=== PATIENT | female | born 1935 | race Caucasian/White ===

== ENCOUNTER → 2016-03-31 | Outpatient (REF) | payer MEDICARE, OTHER ==
[2016-03-31 18:47] LABS: BASO % 0.7 % (0.0-1.0); EOS # 0.3 K/mm3 (0.0-0.50); EOS % 5.5 % (0.0-3.0); LARGE UNSTAINED CELL # 0.1 K/mm3 (0.0-0.4); LARGE UNSTAINED CELL % 1.9 % (0.0-4.0); LYMPH # 1.9 K/mm3 (1.5-4.5); LYMPH % 29.3 % (24.0-44.0); MEAN CORPUSCULAR HEMOGLOBIN 30.4 pg (27.0-33.0); MEAN CORPUSCULAR HGB CONC 34.2 g/dl (32.0-36.5); MEAN CORPUSCULAR VOLUME 88.8 fl (80.0-96.0); MONO # 0.5 K/mm3 (0.0-0.8); MONO % 7.4 % (0.0-5.0); NEUTROPHILS # 3.4 K/mm3 (1.8-7.7); NEUTROPHILS % 55.2 % (36.0-66.0); PLATELET COUNT, AUTOMATED 305 k/mm3 (150-450); RED CELL DISTRIBUTION WIDTH 12.7 % (11.5-14.5); WHITE BLOOD COUNT 6.1 K/mm3 (4.0-10.0)
[2016-03-31 19:04] LABS: ALBUMIN 3.8 GM/DL (3.2-5.2); ALBUMIN/GLOBULIN RATIO 1.09 (1.00-1.93); ALKALINE PHOSPHATASE 172 U/L (45-117); ALT/SGPT 17 U/L (12-78); ANION GAP 9 MEQ/L (8-16); AST/SGOT 14 U/L (15-37); BILIRUBIN,TOTAL 0.4 MG/DL (0.2-1.0); BLOOD UREA NITROGEN 17 MG/DL (7-18); CALCIUM LEVEL 9.3 MG/DL (8.8-10.2); CARBON DIOXIDE LEVEL 28 MEQ/L (21-32); CHLORIDE LEVEL 106 MEQ/L (98-107); CHOLESTEROL LEVEL 209 MG/DL (<200); CREATININE FOR GFR 0.84 MG/DL (0.55-1.02); GLOMERULAR FILTRATION RATE > 60.0 (>32); GLUCOSE, FASTING 91 MG/DL (83-110); POTASSIUM SERUM 4.2 MEQ/L (3.5-5.1); SODIUM LEVEL 143 MEQ/L (136-145); TOTAL PROTEIN 7.3 GM/DL (6.4-8.2); TRIGLYCERIDES LEVEL 160 MG/DL (<150)
== END ==
LOC: M SFHCPLAZ 16:53
PROVIDERS: ATTEND Nurse Practitioner Family
DX: Z00.00 Encounter for general adult medical examination without abnormal findings (principal); I10 Essential (primary) hypertension; E55.9 Vitamin D deficiency, unspecified

== ENCOUNTER → 2016-04-26 | Outpatient (CLI) | payer MEDICARE, OTHER ==
--- NOTE | 2016-04-26 16:50 | REPMRS ---
Patient History The patient states she has not had a clinical breast exam in over a year. Family history of colorectal cancer in mother at age 73, colorectal cancer in brother at age 68, and colorectal cancer in brother at age 70. Took hormonal contraceptives for 2 years. Digital Woman Screen Mammo: April 26, 2016 - Exam #: [id number] Bilateral CC and MLO view(s) were taken. Technologist: Aracelis Noel, Technologist Prior study comparison: June 04, 2014, digital woman screen mammo performed at [facility]. May 11, 2013, bilateral bilat screen digital mammo, performed at [facility] ([facility]). May 08, 2012, bilateral bilat screen digital mammo, performed at [facility] ([facility]). FINDINGS: The breast tissue is almost entirely fat. There has been no change in the appearance of the mammogram from the prior studies. There is no interval development of dominant mass, architectural distortion, or clustered microcalcification typical of malignancy. ASSESSMENT: BI-RADS/ACR category 1 mammogram. Negative. Recommendation Routine screening mammogram of both breasts in 1 year (for women over age 40). This mammogram was interpreted with the aid of an FDA-approved computer-aided dectection system. Electronically Signed By: Danny Crocker MD 04/26/16 1718
== END ==
LOC: M WHC 15:32
PROVIDERS: ATTEND Nurse Practitioner Family
DX: Z12.31 Encounter for screening mammogram for malignant neoplasm of breast (principal); E65 Localized adiposity; Z80.0 Family history of malignant neoplasm of digestive organs; Z92.0 Personal history of contraception

== ENCOUNTER → 2016-05-17 | Outpatient (REF) | payer MEDICARE, OTHER | LOC: M LAB REF 11:50 | PROVIDERS: ATTEND Physician Assistant | DX: R30.0 Dysuria (principal) ==

== ENCOUNTER 2016-10-09 20:44 | Emergency (ER) | payer MEDICARE, OTHER ==
[~2016-10-09] VITALS: Ht 160 cm; Wt 67.3 kg
[2016-10-09 20:44] VITALS: BP 185/89
[2016-10-09] MEDS ORDERED: LOSA100T36 PO (20:56)
[2016-10-09] MEDS ORDERED: CART180C3 PO (20:56)
[2016-10-09] MEDS ORDERED: BUPR200T PO (20:56)
[2016-10-09] MEDS ORDERED: HYDR25TA6 PO (20:56)
[2016-10-09] MEDS ORDERED: POTA20TA6 PO (20:56)
[2016-10-09] MEDS ORDERED: [UNRECOGNIZED DRUG - CODE] PO (20:56)
[2016-10-09] MEDS ORDERED: MAGN64TASA PO (20:56)
[2016-10-09] MEDS ORDERED: LIDOCAINE 2% W/EPIN INJ 20ML **PRES FREE INJ ONE (21:15)
--- NOTE | 2016-10-09 22:00 | REPUSA ---
CT of the head Clinical history: injury. Comparison: 02/19/2014. Protocol: Multiple axial CT images obtained with 5 mm slice thickness were obtained through the head without administration of contrast. Findings: The ventricles and sulci are symmetric but severely enlarged bilaterally. There is no evide nce of acute hemorrhage or infarct. There is no midline shift, mass effect, or extra-axial fluid bassam ection. The osseous structures are unremarkable. The visualized paranasal sinuses and mastoid air geo ls are clear. Impression: No acute hemorrhage or infarct. Ventriculomegaly is stable since the prior study of 2014.
[2016-10-09] MEDS ORDERED: POLYSPORIN TOPICAL OINTMENT 15GM As Ordered ONE (23:21)
== END 2016-10-09 23:31 | disposition home or self-care (01) ==
LOC: M ED 20:44
DX: S01.81XA Laceration without foreign body of other part of head, initial encounter (principal); I10 Essential (primary) hypertension; G91.9 Hydrocephalus, unspecified; W01.198A Fall on same level from slipping, tripping and stumbling with subsequent striking against other object, initial encounter; Y92.099 Unspecified place in other non-institutional residence as the place of occurrence of the external cause; Y93.89 Activity, other specified; Y99.9 Unspecified external cause status

== ENCOUNTER 2017-01-03 20:14 | Emergency (ER) | payer MEDICARE, OTHER ==
[~2017-01-03] VITALS: Ht 162.6 cm; Wt 65.5 kg
[~2017-01-03 20:14] MED LIST: BUPR200T PO; CART180C3 PO; HYDR25TA6 PO; LOSA100T36 PO; MAGN64TASA PO; POTA20TA6 PO; [UNRECOGNIZED DRUG - CODE] PO
[2017-01-03] MEDS ORDERED: MUCI600T37 PO (23:08)
[2017-01-03 23:15] VITALS: BP 158/89
--- NOTE | 2017-01-04 07:46 | REP ---
Clinical: Cough and shortness of breath. Technique: PA and lateral. Comparison: 03/16/2015. Findings: Chronic scoliosis. Mediastinum and cardiac silhouette are stable. Lung pastrana are clear without acute consolidation, effusion, or pneumothorax. Skeletal structures demonstrate scoliosis and age-related degenerative changes. Evidence of prior cholecystectomy. Impression: Chronic stable changes. No acute cardiopulmonary process. Signed by Nikolas Means MD 01/04/2017 07:38 A
== END 2017-01-03 23:16 | disposition home or self-care (01) ==
LOC: M ED 20:14
DX: J20.8 Acute bronchitis due to other specified organisms (principal)

== ENCOUNTER 2017-01-17 06:37 | Day surgery (SDC) | payer MEDICARE, OTHER ==
[~2017-01-17] VITALS: Ht 160 cm; Wt 64.9 kg
[~2017-01-17 06:37] MED LIST changes: +MUCI600T37 PO
[2017-01-17] MEDS ORDERED: LIDOCAINE 1% SDV 5 ML VIAL As Ordered ONE (06:39)
[2017-01-17] MEDS ORDERED: POVIDONE-IODINE 5% OPHTH PREP SOL 30ML As Ordered ONE (06:39)
[2017-01-17] MEDS ORDERED: MOXIFLOXACIN IN BSS 0.25MG/0.25ML INTRACAMERAL INJ (OR EYE ONLY)(J2280) As Ordered ONE (06:39)
[2017-01-17] MEDS ORDERED: TRIAMCINOLONE PRES FR 40 MG/ML 1ML(TRIESENCE)(OR EYE ONLY)(J3300 PER 1MG) As Ordered ONE (06:39)
[2017-01-17] MEDS ORDERED: HEALON DUET (HEALON 10MG/ML 0.55ML & HEALON ENDOCOAT 30MG/ML 0.85ML) As Ordered ONE (06:39)
[2017-01-17] MEDS ORDERED: SLF 3 ML SYR IV PRN (06:45)
[2017-01-17] MEDS ORDERED: OFLOXACIN 0.3 % (OCUFLOX) OPTH SOL 5ML OD ONE (07:00)
[2017-01-17] MEDS ORDERED: TROPICAMIDE 1% OPHTH SOLN 2ML OD ONE (07:00)
[2017-01-17] MEDS ORDERED: LIDOCAINE 3.5 % 1ML OPHTH TOPICAL GEL OU ONE (07:00)
[2017-01-17] MEDS ORDERED: CYCLOPENTOLATE 2% OPHTH SOLN 2ML BTL OD ONE (07:00)
[2017-01-17] MEDS ORDERED: PHENYLEPHRINE 2.5% OPHTH SOL 2ML OD ONE (07:00)
[2017-01-17] MEDS ORDERED: BSS with VANC/TOB/EPI for EYE CASES IR ONE (07:00)
[2017-01-17] MEDS ORDERED: LIDOCAINE 2% W/EPIN INJ 20ML **PRES FREE As Ordered ONE (08:18)
[2017-01-17] MEDS ORDERED: fentaNYL 100 MCG/2 ML INJECTION (J3010) As Ordered ONE (08:21)
[2017-01-17] MEDS ORDERED: MIDAZOLAM INJ 2 MG/2 ML VIAL (J2250) As Ordered ONE (08:21)
[2017-01-17 09:20] VITALS: BP 180/92
[2017-01-17] MEDS ORDERED: SLF 3 ML SYR IV SCH (14:00)
== END 2017-01-17 09:21 | disposition home or self-care (01) ==
LOC: M SDC 06:37
PROVIDERS: ATTEND Ophthalmology
DX: H25.11 Age-related nuclear cataract, right eye (principal); I10 Essential (primary) hypertension; E78.5 Hyperlipidemia, unspecified; M19.90 Unspecified osteoarthritis, unspecified site; F32.9 Major depressive disorder, single episode, unspecified; K57.90 Diverticulosis of intestine, part unspecified, without perforation or abscess without bleeding; M85.80 Other specified disorders of bone density and structure, unspecified site; E88.81 Metabolic syndrome and other insulin resistance; Q03.0 Malformations of aqueduct of Sylvius; E55.9 Vitamin D deficiency, unspecified; J30.9 Allergic rhinitis, unspecified; Z79.899 Other long term (current) drug therapy; Z88.8 Allergy status to other drugs, medicaments and biological substances; Z88.2 Allergy status to sulfonamides; Z88.6 Allergy status to analgesic agent
CPT/HCPCS: 66984; J2250; J2280; J3010; J3300; V2632

== ENCOUNTER → 2017-02-03 | Outpatient (CLI) | payer MEDICARE, OTHER ==
--- NOTE | 2017-02-03 16:43 | REP ---
LEFT SHOULDER: Three views of the left shoulder are performed. There is a nondisplaced fracture of the distal end of the clavicle. I see no other evidence of acute fracture or dislocation. There is mild narrowing and spurring at the acromioclavicular joint. There also appears to be mild narrowing at the glenohumeral joint. IMPRESSION: Nondisplaced fracture distal end of left clavicle. Signed by Peter Whipple MD 02/03/2017 08:43 P
== END ==
LOC: M WUC 15:52
PROVIDERS: ATTEND Physician Assistant
DX: S40.012A Contusion of left shoulder, initial encounter (principal); X58.XXXA Exposure to other specified factors, initial encounter; Y92.89 Other specified places as the place of occurrence of the external cause; Y93.89 Activity, other specified; Y99.8 Other external cause status

== ENCOUNTER → 2017-03-25 | Outpatient (REF) | payer MEDICARE, OTHER ==
[2017-03-25 13:59] LABS: HEMOGLOBIN 12.4 g/dl (12.0-16.0); MEAN CORPUSCULAR HEMOGLOBIN 29.4 pg (27.0-33.0); MEAN CORPUSCULAR HGB CONC 32.6 g/dl (32.0-36.5); PLATELET COUNT, AUTOMATED 377 10^3/uL (150-450); RED BLOOD COUNT 4.22 10^6/uL (4.00-5.40); RED CELL DISTRIBUTION WIDTH 13.8 % (11.5-14.5); WHITE BLOOD COUNT 8.3 10^3/uL (4.0-10.0)
[2017-03-25 14:37] LABS: TOTAL 25(OH) VITAMIN D 37.7 NG/ML (30.0-100.0)
[2017-03-25 14:39] LABS: ALBUMIN 4.1 GM/DL (3.2-5.2); ALBUMIN/GLOBULIN RATIO 1.46 (1.00-1.93); ALKALINE PHOSPHATASE 134 U/L (45-117); ALT/SGPT 14 U/L (12-78); ANION GAP 8 MEQ/L (8-16); AST/SGOT 17 U/L (7-37); BILIRUBIN,TOTAL 0.5 MG/DL (0.2-1.0); BLOOD UREA NITROGEN 20 MG/DL (7-18); CALCIUM LEVEL 9.2 MG/DL (8.8-10.2); CARBON DIOXIDE LEVEL 27 MEQ/L (21-32); CHLORIDE LEVEL 109 MEQ/L (98-107); CHOLESTEROL LEVEL 226 MG/DL (<200); CHOLESTEROL RISK RATIO 3.138 (<5); CREATININE FOR GFR 0.97 MG/DL (0.55-1.30); FREE T4 1.16 NG/DL (0.76-1.46); GLOMERULAR FILTRATION RATE 58.7 (>32); GLUCOSE, FASTING 96 MG/DL (70-100); HDL CHOLESTEROL 72 MG/DL (>40); LDL CHOLESTEROL 118.4 MG/DL (<100); NON-HDL-C 154 MG/DL; POTASSIUM SERUM 4.7 MEQ/L (3.5-5.1); SODIUM LEVEL 144 MEQ/L (136-145); TOTAL PROTEIN 6.9 GM/DL (6.4-8.2); TRIGLYCERIDES LEVEL 178 MG/DL (<150)
== END ==
LOC: M SFHCPLAZ 11:09
DX: I10 Essential (primary) hypertension (principal); E55.9 Vitamin D deficiency, unspecified; E78.2 Mixed hyperlipidemia; F32.9 Major depressive disorder, single episode, unspecified
CPT/HCPCS: 84443

== ENCOUNTER 2017-04-13 08:55 | Day surgery (SDC) | payer MEDICARE, OTHER ==
[~2017-04-13 08:55] MED LIST changes: +ACETAMINOPHEN 325 MG TAB PO; -BUPR200T PO; -CART180C3 PO; -HYDR25TA6 PO; -LOSA100T36 PO; -MAGN64TASA PO; +MIDAZOLAM INJ 2 MG/2 ML VIAL (J2250) As Ordered; -MUCI600T37 PO; +PHENYLEPHRINE HCL 10 % OPHTH. SOL 5ML OS; -POTA20TA6 PO; +PROPARACAINE 0.5% OPHTH SOL 15ML OS; -[UNRECOGNIZED DRUG - CODE] PO; +fentaNYL 100 MCG/2 ML INJECTION (J3010) As Ordered
[2017-04-13] MEDS ORDERED: TRIMETHOBENZAMIDE 300 MG CAP PO (09:15)
[2017-04-13] MEDS ORDERED: AcetaZOLAMIDE 500 MG ER CAP PO (09:15)
[2017-04-13] MEDS ORDERED: KETOROLAC 0.5% OPHTH SOLN OS (09:15)
[2017-04-13] MEDS: PHENYLEPHRINE 2.5% OPHTH SOL 2ML OS (10:05)
[2017-04-13] MEDS: CYCLOPENTOLATE 2% OPHTH SOLN 2ML BTL OS (10:05)
[2017-04-13] MEDS: LIDOCAINE 3.5 % 1ML OPHTH TOPICAL GEL OU (10:06)
[2017-04-13] MEDS: OFLOXACIN 0.3 % (OCUFLOX) OPTH SOL 5ML OS (10:06)
[2017-04-13] MEDS: TROPICAMIDE 1% OPHTH SOLN 2ML OS (10:06)
[2017-04-13] MEDS: LIDOCAINE 1% SDV 5 ML VIAL As Ordered (11:21)
[2017-04-13] MEDS: MOXIFLOXACIN IN BSS 0.25MG/0.25ML INTRACAMERAL INJ (OR EYE ONLY)(J2280) As Ordered (11:21)
[2017-04-13] MEDS: TRIAMCINOLONE PRES FR 40 MG/ML 1ML(TRIESENCE)(OR EYE ONLY)(J3300 PER 1MG) As Ordered (11:21)
[2017-04-13] MEDS: BSS with VANC/TOB/EPI for EYE CASES IR (11:21)
[2017-04-13] MEDS: POVIDONE-IODINE 5% OPHTH PREP SOL 30ML As Ordered (11:21)
[2017-04-13] MEDS: HEALON DUET (HEALON 10MG/ML 0.55ML & HEALON ENDOCOAT 30MG/ML 0.85ML) As Ordered ×2 (11:21→11:31)
[2017-04-13] MEDS: ACETYLCHOLINE OPHTH SOLN 1% 2ML (MIOCHOL-E) As Ordered (11:35)
== END 2017-04-13 12:14 | disposition home or self-care (01) ==
LOC: M SDC 08:55
DX: H26.9 Unspecified cataract (principal); I10 Essential (primary) hypertension; M15.0 Primary generalized (osteo)arthritis; F32.9 Major depressive disorder, single episode, unspecified; E78.2 Mixed hyperlipidemia; E74.9 Disorder of carbohydrate metabolism, unspecified; E55.9 Vitamin D deficiency, unspecified; Q03.0 Malformations of aqueduct of Sylvius; Z88.2 Allergy status to sulfonamides; Z88.6 Allergy status to analgesic agent; Z88.8 Allergy status to other drugs, medicaments and biological substances; Z79.899 Other long term (current) drug therapy; Z90.710 Acquired absence of both cervix and uterus
CPT/HCPCS: 66984

== ENCOUNTER 2017-05-03 09:16 | Emergency (ER) | payer MEDICARE, OTHER ==
[2017-05-03] MEDS: NAPROXEN 250 MG TAB PO (09:50)
== END 2017-05-03 11:16 | disposition home or self-care (01) ==
LOC: M ED 09:16
DX: S93.401A Sprain of unspecified ligament of right ankle, initial encounter (principal); X50.0XXA Overexertion from strenuous movement or load, initial encounter; Y92.018 Other place in single-family (private) house as the place of occurrence of the external cause; I10 Essential (primary) hypertension; M19.90 Unspecified osteoarthritis, unspecified site; Z79.899 Other long term (current) drug therapy
CPT/HCPCS: 73610

== ENCOUNTER 2018-06-25 11:56 | Inpatient (IN) | payer MEDICARE, OTHER ==
[~2018-06-25] VITALS: Ht 162.6 cm; Wt 64.3 kg
[~2018-06-25 11:56] MED LIST changes: -ACETAMINOPHEN 325 MG TAB PO; +BUPR200T PO; +CART180C3 PO; +ECOT325T5 PO; +HYDR25TA6 PO; +LOSA100T50 PO; +MAGN64TASA PO; -MIDAZOLAM INJ 2 MG/2 ML VIAL (J2250) As Ordered; +MUCI600T37 PO; +OSEL75CA2 PO; -PHENYLEPHRINE HCL 10 % OPHTH. SOL 5ML OS; +POTA20TA6 PO; -PROPARACAINE 0.5% OPHTH SOL 15ML OS; +VITA200016 PO; +[UNRECOGNIZED DRUG - CODE] PO; -fentaNYL 100 MCG/2 ML INJECTION (J3010) As Ordered
[2018-06-25] MEDS ORDERED: ACETAMINOPHEN 325 MG TAB PO ONE (12:30)
[2018-06-25] MEDS ORDERED: LATA0.0015 OU (12:59)
[2018-06-25] MEDS ORDERED: LORA-674 PO (12:59)
[2018-06-25] MEDS ORDERED: NAPR-832 PO (12:59)
[2018-06-25 13:02] LABS: BASO # 0.1 10^3/uL (0.0-0.2); BASO % 0.6 % (0.0-1.0); EOS # 0.1 10^3/uL (0.0-0.50); EOS % 0.8 % (0.0-3.0); HEMATOCRIT 39.5 % (36.0-47.0); HEMOGLOBIN 13.1 g/dl (12.0-15.5); LYMPH # 0.9 10^3/uL (1.5-4.5); LYMPH % 11.5 % (24.0-44.0); MEAN CORPUSCULAR HEMOGLOBIN 30.3 pg (27.0-33.0); MEAN CORPUSCULAR HGB CONC 33.2 g/dl (32.0-36.5); MEAN CORPUSCULAR VOLUME 91.2 fl (80.0-96.0); MONO # 0.5 10^3/uL (0.0-0.8); MONO % 6.4 % (0.0-5.0); NEUTROPHILS # 6.3 10^3/uL (1.8-7.7); NEUTROPHILS % 80.4 % (36.0-66.0); PLATELET COUNT, AUTOMATED 252 10^3/uL (150-450); RED BLOOD COUNT 4.33 10^6/uL (4.00-5.40); WHITE BLOOD COUNT 7.8 10^3/uL (4.0-10.0)
[2018-06-25 13:31] LABS: ALBUMIN 3.9 GM/DL (3.2-5.2); ALT/SGPT 21 U/L (12-78); BILIRUBIN,DIRECT 0.1 MG/DL (0.0-0.2); BILIRUBIN,TOTAL 0.5 MG/DL (0.2-1.0); BLOOD UREA NITROGEN 23 MG/DL (7-18); CARBON DIOXIDE LEVEL 26 MEQ/L (21-32); CHLORIDE LEVEL 109 MEQ/L (98-107); CREATININE FOR GFR 1.06 MG/DL (0.55-1.30); GLOMERULAR FILTRATION RATE 52.8 (>32); GLUCOSE, FASTING 121 MG/DL (70-100); POTASSIUM SERUM 5.6 MEQ/L (3.5-5.1); SODIUM LEVEL 142 MEQ/L (136-145); TOTAL PROTEIN 6.6 GM/DL (6.4-8.2)
[2018-06-25] MEDS ORDERED: PATIROMER SORBITEX CALCIUM 8.4 GM POWDER PACKET (VELTASSA) PO ONE (13:45)
--- NOTE | 2018-06-25 13:48 | REP ---
CT CHEST WITHOUT CONTRAST: HISTORY: Lower back and left lower rib pain after a fall. FINDINGS: Preliminary christmas bell ringer images demonstrate a moderate thoracic and lumbar scoliosis. Cardiac enlargement is observed. No pleural or pericardial effusion is seen. No hilar or mediastinal mass is observed. The thoracic aorta is tortuous. No pulmonary contusion is seen. There is minimal bibasilar fibrosis. No acute pulmonary parenchymal abnormality is seen. There are acute fractures of the left posterior 10th, 11th, and 12th ribs. The 11th rib is fractured in two places. The 11th and 12th posterior rib fractures are somewhat displaced. No thoracic spine fracture is seen. No sternal or other skeletal fracture is appreciated. Vertebral body heights are preserved. IMPRESSION: Displaced fractures of the left posterior 11th and 12th ribs. Nondisplaced left 10th rib fracture posterolaterally. Small quantity of adjacent pleural thickening. Scoliosis. Otherwise no acute disease. Cardiomegaly. Electronically Signed by Chalino Crocker MD 06/25/2018 02:45 P
--- NOTE | 2018-06-25 13:50 | REP ---
CT LUMBAR SPINE: HISTORY: Low back and left rib pain after a fall. FINDINGS: There is a significant levoconvex lumbar scoliotic curve. Lumbar vertebral body heights are preserved. There is no evidence of lumbar spine element fracture or collapse. There is osteoarthritic facet disease at multiple levels, most pronounced at L4-5 and L5-S1. Degenerative disc changes are noted. These are most pronounced at L2-3. IMPRESSION: Scoliosis and degenerative spondylosis changes. No traumatic abnormality. Electronically Signed by Chalino Crocker MD 06/25/2018 02:45 P
[2018-06-25] MEDS ORDERED: ONDANSETRON 4MG/2ML VIAL (J2405) IV ONE (14:00)
[2018-06-25] MEDS ORDERED: MORPHINE 4 MG/ML 1ML VIAL/SYRINGE (J2270) IV PRN (14:00)
[2018-06-25] MEDS ORDERED: ASPI1TAB22 PO (14:08)
[2018-06-25] MEDS ORDERED: HYDR25TAB PO (14:08)
[2018-06-25 14:11] LABS: CPK CREATINE PHOSPHOKINASE 109 U/L (26-192); FREE T4 1.22 NG/DL (0.76-1.46); MB/CK RELATIVE INDEX 1.93 (< OR =4); TROPONIN I < 0.02 NG/ML (< 0.10)
[2018-06-25 14:52] LABS: INR 0.96; PROTHROMBIN TIME 12.9 SECONDS (12.1-14.4)
[2018-06-25 17:45] VITALS: BP 139/81
[2018-06-25] MEDS ORDERED: LIDOCAINE 5% (LIDODERM) PATCH TD ONE (19:00)
[2018-06-25 20:00] VITALS: BP 131/80
[2018-06-25] MEDS: buPROPion (WELLBUTRIN SR) 100 MG SR TAB PO SCH (20:06)
[2018-06-25] MEDS: APIXABAN 2.5 MG TAB (ELIQUIS) PO SCH (20:07)
[2018-06-25] MEDS: MAGNESIUM CHLORIDE 64 MG TABCR (SLO MAG) PO SCH (20:07)
[2018-06-25] MEDS: FLUTICASONE PROP 0.05% NASAL SPRAY 16 GM (FLONASE) NARES SCH (20:07)
[2018-06-25] MEDS: LATANOPROST 0.005% OPHTH SOLN 2.5 ML OU SCH (20:07)
[2018-06-25] MEDS: ACETAMINOPHEN TAB 650MG DOSE (2X325MG) PO PRN (20:08)
[2018-06-26] VITALS: BP 116/77
[2018-06-26] MEDS: ACETAMINOPHEN TAB 650MG DOSE (2X325MG) PO PRN ×3 (01:27→15:39)
--- NOTE | 2018-06-26 01:30 | HPE ---
DATE OF ADMISSION: 06/25/2018 CHIEF COMPLAINT: Marcella was feeling woozy, lightheaded. Fell struck left rib area seen in the emergency room (ER) because of complaint of rib pain after a fall and noted to have three rib fractures to 10, 11 and 12 posteriorly on the left side corresponding to the area of pain, however, she was also noted to be in atrial fibrillation with rate varying between 60-126 with minimal activity her rate goes very fast so the new diagnosis for her with symptomatic atrial fibrillation new onset it was deemed with that injury related to the symptoms it was deemed appropriate for to be admitted. She has no prior history of atrial fibrillation and no history of coronary artery disease. CURRENT MEDICATIONS: Include: - Flonase allergy relief one spray each nostril daily - Slow-Mag 2 tablets twice a day - vitamin D 2000 units daily - diltiazem 180 mg daily - Wellbutrin SR 200 mg twice a day - hydrochlorothiazide 25 mg daily - Cozaar 100 mg twice a day - K-Dur 20 mEq 2 tablets twice a day - Anaprox 550 twice a day as needed pain PAST MEDICAL HISTORY: The past medical history is remarkable for hypertension. She had echocardiogram in [address] Lee that showed left ventricular hypertrophy, mild diastolic dysfunction, minimal dysfunction of atrial and mitral valves LA dimension at that time was 3.9 cm, hyperlipidemia, diverticulosis osteopenia on a DEXA scan last done in April 2010. Started bisphosphonate in 2004. 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 Vera at the [facility] neurosurgical department. SURGICAL HISTORY: Partial hysterectomy. It is not clear what that means, cholecystectomy in the 80s, colonoscopies as noted with tubulovillous adenoma removed in 2010. FAMILY HISTORY: Remarkable for father dying of old age, nonspecific cause. Mother had colon cancer, hypertension. Brother had colon cancer. SOCIAL HISTORY: The patient was never a smoker. She has been offered human immunodeficiency virus (HIV) and hepatitis C screening and declined both. Rents an apartment lives alone, since 1968. of myocardial infarction and left her with six children. REVIEW OF SYSTEMS: Until the onset of today symptoms she was not having chest pain or lightheadedness and had no previous episodes of fainting or near fainting. No nausea, vomiting or constipation, diarrhea or dysuria. Chronic joint pain that come and go. Over the last day or so she has had episodes of lightheadedness and then today's episode of near syncope resulting in injury. PHYSICAL EXAMINATION: VITAL SIGNS: Blood pressure 120/79, pulse was as noted ranged from 80-126 on the monitor with minimal activity, room air saturation is 94%-95%. GENERAL: She is alert, pleasant, cooperative and in no apparent distress until she is asked to move and then she reports pain and points the left rib area, low back, left low rib areas on the left torso. HEENT: Normocephalic. Pupils equal. Full eye movement. Palate normal elevation, oropharynx unremarkable. No neck masses noted. No carotid bruits are heard. Thyroid is not enlarged. LUNGS: Equal expansion. No wheezing, rales or rhonchi. She is tender in the left posterolateral ribs. No crepitations are noted. No bruising is seen. HEART: Irregular rhythm with no discernible murmur. ABDOMEN: Nontender. No mass, guarding or rebound. No bruits noted. EXTREMITIES: Show no significant edema. She has had previous surgeries on her toes. She has a rash on her low back. SKIN: She has rash on her low back which seems somewhat plaque-like almost like psoriasis. Will need to be monitored and consider subsequent outpatient biopsy or dermatology consultation. She has no previous history of psoriasis although this rash looks psoriasiform. NEUROLOGICAL: She is alert pleasant. Memory is mildly impaired. She moves all extremities without difficulty although her gait was not tested. LABORATORY DATA: Hemoglobin 13.1, white count 7800. Differentials 80.4% neutrophils, 11.5% lymphocytes, platelet count 252,000. Chemistries: BUN 23, creatinine 1.06. Glucose on admission was 121 and this was not fasting. Alkaline phosphatase was 129. Liver enzymes are otherwise normal. Troponin was negative. Thyroid-stimulating hormone (TSH) 2.7 and free T4 1.22. Her potassium was 5.6 on admission and then rechecked at 5.2. Initial dose of a potassium binding resin was given but the dose was not actually administered and the request to administer this drug was discontinued when her followup potassium returned at only 5.2. IMAGING STUDIES: Include a CT of the lumbar spine which shows scoliosis and spondylitic changes, facet disease at multiple levels, most pronounced and disc disease at multiple levels. A CT of the chest showed fractures of the posterior left 10th, 11th and 12th ribs. The 11th and 12th ribs are somewhat displaced. No thoracic fractures are noted. There is no pleural effusion. There is minimal basilar fibrillation. No mediastinal mass or pericardial effusion is noted. IMPRESSION: 1. New onset atrial fibrillation with rate likely with episode of presyncope and injury to the left ribs secondary to a near fainting event. 2. Rib fractures as described. 3. Longstanding hypertension. 4. History of aqueductal stenosis and hydrocephalus, but is not thought to be a shunt candidate per neurosurgical consult at [facility]. PLAN: The plan will be to admit. Improve rate control. Since she is already taking Cardizem, we will increase her Cardizem dose to 240. Will give her 60 mg by mouth doses this evening and she will start a 240 mg daily dose tomorrow. She is close to the threshold for low-dose for administration of Eliquis. Her weight is 63.64 kg and she is over 80 but her creatinine is good enough and her weight is just high enough to justify standard dosing but one could easily be convinced that perhaps this frail woman should have the lower 2.5 mg twice a day dose particularly if she is going to continue to exhibit risk of falling. Her rate hopefully will be improved and will eliminate this particular hazard from falls as with a lower rate she should have better filling pressures and better cardiac output and avoidance of tachycardia will be important. Echo will be requested. Consider cardiology consult if her pressure and heart rate are not reasonably controlled readily. The potassium administration that she had been doing as outpatient will be discontinued because she presents hyperkalemic. We will continue magnesium supplement for now but will check magnesium level tomorrow.
[2018-06-26 04:00] VITALS: BP 118/68
[2018-06-26 04:44] LABS: HEMATOCRIT 35.2 % (36.0-47.0); HEMOGLOBIN 11.7 g/dl (12.0-15.5); MEAN CORPUSCULAR HEMOGLOBIN 30.5 pg (27.0-33.0); MEAN CORPUSCULAR HGB CONC 33.2 g/dl (32.0-36.5); MEAN CORPUSCULAR VOLUME 91.7 fl (80.0-96.0); PLATELET COUNT, AUTOMATED 218 10^3/uL (150-450); RED BLOOD COUNT 3.84 10^6/uL (4.00-5.40); WHITE BLOOD COUNT 7.5 10^3/uL (4.0-10.0)
[2018-06-26 05:09] LABS: ALBUMIN 3.1 GM/DL (3.2-5.2); BILIRUBIN,TOTAL 0.6 MG/DL (0.2-1.0); CALCIUM LEVEL 8.2 MG/DL (8.8-10.2); CREATININE FOR GFR 1.11 MG/DL (0.55-1.30); GLOMERULAR FILTRATION RATE 50.1 (>32); POTASSIUM SERUM 3.9 MEQ/L (3.5-5.1)
--- NOTE | 2018-06-26 05:49 | ECGEPIP ---
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
[2018-06-26] MEDS ORDERED: **NOTE PATIENT COMMENT** MISC XX ONE (07:00)
[2018-06-26 08:00] VITALS: BP 115/73
--- NOTE | 2018-06-26 08:11 | REP ---
Chest x-ray: Two views. History: Follow-up. Rib fracture. Comparison study: January 03, 2017. CT chest June 25, 2018 showed left posterolateral 10th through 12th rib fractures. Findings: There is linear fibrosis in the left mid and lower lung zone. The lungs are well inflated and clear. There is no evidence of pneumothorax or hydrothorax. Heart is enlarged. The thoracic aorta is quite tortuous and somewhat ectatic unchanged. There is a moderate dextroconvex thoracic scoliosis. There is an old healed rib fracture on the right anteriorly. No acute rib fracture is seen radiographically. . There are surgical clips in the upper abdomen. Impression: Cardiomegaly. Scoliosis. Otherwise no acute disease. Electronically Signed by Chalino Crocker MD 06/26/2018 08:03 A
[2018-06-26] MEDS: MAGNESIUM CHLORIDE 64 MG TABCR (SLO MAG) PO SCH ×2 (08:51→21:22)
[2018-06-26] MEDS: FLUTICASONE PROP 0.05% NASAL SPRAY 16 GM (FLONASE) NARES SCH ×2 (08:51→20:45)
[2018-06-26] MEDS: APIXABAN 2.5 MG TAB (ELIQUIS) PO SCH ×2 (08:52→20:44)
[2018-06-26] MEDS: hydroCHLOROthiazide 25 MG TAB PO SCH (08:53)
[2018-06-26] MEDS: buPROPion (WELLBUTRIN SR) 100 MG SR TAB PO SCH ×2 (08:53→21:21)
[2018-06-26] MEDS: VITAMIN D 1,000 INTERNATIONAL UNITS TABLET PO SCH (08:53)
--- NOTE | 2018-06-26 08:56 | IPNPDOC ---
Subjective Date Seen The patient was seen on 06/26/18. Subjective Chief Complaint/HPI fall, afib with RVR, rib fractures. Events since last encounter C/o mid back pain and rib pain. c/o nausea and abdominal fullness with nausea. admits to constipation. Denies flatus. Constitutional: Denies: Chills, Fever, Night Sweats Pulmonary: Denies: Dyspnea, Cough Cardiovascular: Denies: Chest Pain, Palpitations, Orthopnea, Paroxysmal Noc. Dyspnea, Lt Headedness Gastrointestinal: Reports: Constipation Genitourinary: Denies: Dysuria, Frequency, Incontinence, Retention Musculoskeletal: Reports: Other Symptoms (left sided CP, right upper/mid back pain) Psych: Reports: Mood Normal Objective Physical Examination General Exam: Positive: Alert, No Acute Distress Neck Exam: Positive: Supple; Negative: JVD, thyromegaly Chest Exam: Positive: Clear to auscultation, Normal air movement Heart Exam: Positive: Rate Normal, Regular Rhythm, Normal S1, Normal S2; Negative: Murmurs, Rubs Telemetry: Positive: No significant arrhythmia Abdomen Exam: Positive: BS Hypoactive, Soft, Tenderness (mildly); Negative: Hepatospenomegaly A-FIB/CHADSVASC A-FIB History Current/History of A-Fib/PAF?: Yes Current Oral Anticoagulant The: Yes Assessment /Plan Problems (1) Atrial fibrillation Status: Acute Problem Text: Diltiazem 240 mg started yesterday. continue Losartan 100 mg po daily. Rate controlled today. Will eval HR with activity. Eliquis 5 mg po bid for anti-coagulation. Echo pending. (2) Rib pain on left side Status: Acute Problem Text: Tylenol prn. added heat for mid back pain, appears muscular. most likely position related. (3) Injury due to fall Status: Acute (4) Hyperkalemia Status: Acute Problem Text: level 3.9 today. supplementation held. (5) Elevated alkaline phosphatase level Status: Chronic (6) Constipation Status: Acute Problem Text: will eval abdominal image. Bowel meds ordered. Plan/VTE VTE Prophylaxis Ordered?: Yes Plan Family Medicine Attending Note: I saw and examined Ms. Noble, discussed with VERONICA Antunez. Agree with her note as documented. I saw the patient later in the day. Does not sound as if she has had a bowel movement yet. She does report that she's having significant chest wall pain where the fractures are. We need to strike a careful balance with pain control and not making her more constipated. I decided to prescribe her a very low dose hydrocodone (3.75 mg) to try to help manage her pain and yet not slow her intestines too much. We'll monitor efficacy of this plan tomorrow. 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) VS, I&O, 24H, Fishbone Vital Signs/I&O Vital Signs Date Time Temp Pulse Resp B/P (MAP) Pulse Ox O2 Delivery O2 Flow Rate FiO2 06/26/18 08:00 98.2 81 20 115/73 (87) 95 06/25/18 17:16 Room Air I&O- Last 24 Hours up to 6 AM 06/26/18 06:00 Intake Total 420 ml Output Total 200 ml Balance 220 ml Laboratory Data 24H LABS Laboratory Tests 2 06/25/18 12:50: Immature Granulocyte % (Auto) 0.3, White Blood Count 7.8, Red Blood Count 4.33, Hemoglobin 13.1, Hematocrit 39.5, Mean Corpuscular Volume 91.2, Mean Corpuscular Hemoglobin 30.3, Mean Corpuscular Hemoglobin Concent 33.2, Red Cell Distribution Width 12.6, Platelet Count 252, Neutrophils (%) (Auto) 80.4H, Lymphocytes (%) (Auto) 11.5L, Monocytes (%) (Auto) 6.4H, Eosinophils (%) (Auto) 0.8, Basophils (%) (Auto) 0.6, Neutrophils # (Auto) 6.3, Lymphocytes # (Auto) 0.9L, Monocytes # (Auto) 0.5, Eosinophils # (Auto) 0.1, Basophils # (Auto) 0.1, Nucleated Red Blood Cells % (auto) 0.0, Anion Gap 7L, Glomerular Filtration Rate 52.8, Calcium Level 9.0, Aspartate Amino Transf (AST/SGOT) 20, Alanine Aminotransferase (ALT/SGPT) 21, Alkaline Phosphatase 129H, Total Bilirubin 0.5, Direct Bilirubin 0.1, Total Creatine Kinase 109, Creatine Kinase MB 2.0, Creatine Kinase MB Relative Index 1.93, Troponin I < 0.02, Total Protein 6.6, Albumin 3.9, Albumin/Globulin Ratio 1.44, Thyroid Stimulating Hormone (TSH) 2.710, Free Thyroxine 1.22 06/25/18 14:27: Prothrombin Time 12.9, Prothromb Time International Ratio 0.96 06/26/18 04:08: Nucleated Red Blood Cells % (auto) 0.0, Anion Gap 5L, Glomerular Filtration Rate 50.1, Calcium Level 8.2L, Aspartate Amino Transf (AST/SGOT) 70H, Alanine Aminotransferase (ALT/SGPT) 65, Alkaline Phosphatase 168H, Total Bilirubin 0.6, Total Protein 6.0L, Albumin 3.1#L, Albumin/Globulin Ratio 1.07, Blood Urea Nitrogen 24H, Creatinine 1.11, Sodium Level 140, Potassium Level 3.9#, Chloride Level 108H, Carbon Dioxide Level 27 CBC/BMP Laboratory Tests 06/25/18 12:50 Red Blood Count 4.33, Mean Corpuscular Volume 91.2, Mean Corpuscular Hemoglobin 30.3, Mean Corpuscular Hemoglobin Concent 33.2, Red Cell Distribution Width 12.6, Neutrophils (%) (Auto) 80.4 H, Lymphocytes (%) (Auto) 11.5 L, Monocytes (%) (Auto) 6.4 H, Eosinophils (%) (Auto) 0.8, Basophils (%) (Auto) 0.6, Neut rophils # (Auto) 6.3, Lymphocytes # (Auto) 0.9 L, Monocytes # (Auto) 0.5, Eosinophils # (Auto) 0.1, Basophils # (Auto) 0.1 06/25/18 14:27 06/26/18 04:08 Red Blood Count 3.84 L, Mean Corpuscular Volume 91.7, Mean Corpuscular Hemoglobin 30.5, Mean Corpuscular Hemoglobin Concent 33.2, Red Cell Distribution Width 12.6, Calcium Level 8.2 L, Aspartate Amino Transf (AST/SGOT) 70 H, Alanine Aminotransferase (ALT/SGPT) 65, Alkaline Phosphatase 168 H, Total Bilirubin 0.6, Total Protein 6.0 L, Albumin 3.1 #L Malka Mcpherson June 26, 2018 8:56 am Magdiel Srinivasan MD June 26, 2018 11:00 pm
[2018-06-26] MEDS ORDERED: BISACODYL 10 MG SUPP PR PRN (09:00)
[2018-06-26] MEDS: LOSARTAN 50 MG TAB PO SCH (09:05)
[2018-06-26] MEDS: DOCUSATE SODIUM 100 MG CAP PO SCH ×2 (10:25→20:44)
[2018-06-26] MEDS: SENNA 8.6 MG TAB (SENOKOT) PO SCH ×2 (10:26→20:44)
--- NOTE | 2018-06-26 11:17 | REP ---
Abdomen series: Three views. History: Constipation. Findings: There is air and stool distending the colon. Moderate stool is seen in the rectum and left colon. There is stool and gaseous distension of the cecum and transverse segment of the colon. Undigested tablets are seen in the stomach. There are clips in right upper quadrant. Impression: Air and stool distended colon. No free air. Electronically Signed by Chalino Crocker MD 06/26/2018 07:17 P
[2018-06-26 12:00] VITALS: BP 115/72
[2018-06-26 16:00] VITALS: BP 139/87
--- NOTE | 2018-06-26 19:07 | ECHO ---
DATE OF PROCEDURE: 06/26/2018 REFERRING PHYSICIAN: Dr. Ismael Gaines INDICATION: Atrial fibrillation. Height 163 cm, weight 64 kg. DIMENSIONS: IVS: 1.0 LV: 4.9 LVPW: 0.9 LA: 3.9 Aorta: 3.3 IVC: 1.5 FINDINGS: The study is of acceptable technical quality. The patient is in atrial fibrillation with heart rate fluctuating between 90 and 120 beats per minute. Left ventricle is of normal size and grossly normal systolic function. I estimate left ventricular ejection fraction (LVEF) around 50-55%. Right ventricle does not appear grossly enlarged. Both atria are severely enlarged, left atrium more than right. Aortic valve has three cusps. It is mildly sclerotic but mobility is preserved. There are also mild degenerative abnormalities of mitral valve but mobility of leaflets is preserved. Tricuspid and pulmonic valves appear normal. No pericardial effusion is noted. Inferior vena cava is normal size and appropriately collapses with respiration indicative of normal central venous pressure. Aortic root is normal. Aortic arch and abdominal aorta were not well seen. Doppler interrogation of aortic valve reveals no stenosis or insufficiency. There is mild mitral and mild to moderate tricuspid insufficiency. Calculated pulmonary artery pressure is in 30s corresponding to mild pulmonary hypertension. Pulmonic valve is functionally competent. Evaluation of diastolic function is inconclusive due to underlying atrial fibrillation. CONCLUSIONS: 1. Study is of acceptable technical quality. 2. Normal left ventricular (LV) size with low normal LV systolic function. 3. Aortic sclerosis with no stenosis or insufficiency. 4. Mild mitral insufficiency. 5. [id number] tricuspid insufficiency. 6. Normal central venous pressure and mild pulmonary hypertension. 7. Severe biatrial enlargement. COMMENT: Subacute bacterial endocarditis (SBE) prophylaxis is not recommended.
[2018-06-26 20:00] VITALS: BP 141/86
[2018-06-26] MEDS ORDERED: ANEXSIA, NORCO 7.5MG/325MG TABLET(HYDROCODONE/APAP) PO PRN (20:15)
[2018-06-26] MEDS ORDERED: PILL CUTTER 1 EACH XX PRN (20:15)
[2018-06-26] MEDS: LATANOPROST 0.005% OPHTH SOLN 2.5 ML OU SCH (20:45)
[2018-06-27] VITALS: BP 137/86
[2018-06-27 04:00] VITALS: BP 131/88
[2018-06-27 05:21] LABS: HEMATOCRIT 37.9 % (36.0-47.0); HEMOGLOBIN 13.1 g/dl (12.0-15.5); MEAN CORPUSCULAR HEMOGLOBIN 30.2 pg (27.0-33.0); MEAN CORPUSCULAR HGB CONC 34.6 g/dl (32.0-36.5); MEAN CORPUSCULAR VOLUME 87.3 fl (80.0-96.0); PLATELET COUNT, AUTOMATED 251 10^3/uL (150-450); RED BLOOD COUNT 4.34 10^6/uL (4.00-5.40); WHITE BLOOD COUNT 11.4 10^3/uL (4.0-10.0)
[2018-06-27 05:47] LABS: ALBUMIN 3.3 GM/DL (3.2-5.2); BLOOD UREA NITROGEN 22 MG/DL (7-18); CALCIUM LEVEL 8.7 MG/DL (8.8-10.2); CARBON DIOXIDE LEVEL 30 MEQ/L (21-32); CHLORIDE LEVEL 105 MEQ/L (98-107); CREATININE FOR GFR 0.94 MG/DL (0.55-1.30); GLOMERULAR FILTRATION RATE > 60.0 (>32); GLUCOSE, FASTING 134 MG/DL (70-100); PHOSPHORUS LEVEL 3.2 MG/DL (2.5-4.9); POTASSIUM SERUM 3.1 MEQ/L (3.5-5.1); SODIUM LEVEL 140 MEQ/L (136-145)
[2018-06-27 08:00] VITALS: BP 124/82
--- NOTE | 2018-06-27 08:23 | IPNPDOC ---
Subjective Date Seen The patient was seen on 06/27/18. Subjective Chief Complaint/HPI Patient reports constipation. She states she feels bloated. She also reports wanting to go home. She states she feels good and doesn't understand why she is still in hospital. Constitutional: Denies: Chills, Fever Pulmonary: Denies: Dyspnea, Cough, Pleuritic Chest Pain Cardiovascular: Denies: Chest Pain, Palpitations, Orthopnea, Edema Gastrointestinal: Reports: Constipation, Other Symptoms (bloating); Denies: Nausea, Vomiting Genitourinary: Denies: Dysuria Psych: Reports: Mood Normal Objective Physical Examination General Exam: Positive: Alert, No Acute Distress Neck Exam: Positive: Supple; Negative: JVD, thyromegaly Chest Exam: Positive: Clear to auscultation, Normal air movement Heart Exam: Positive: Rate Normal, Regular Rhythm, Normal S1, Normal S2; Negative: Murmurs, Rubs Telemetry: Positive: No significant arrhythmia Abdomen Exam: Positive: BS Hypoactive, Soft; Negative: Tenderness, Hepatospenomegaly Extremity Exam: Negative: Edema Psych Exam: Positive: Mood NL A-FIB/CHADSVASC A-FIB History Current/History of A-Fib/PAF?: Yes Current Oral Anticoagulant The: Yes Age/Risk Factor Scoring CHADSVASC: CHADSVASC Response (Comments) Value Age Risk Factor Age >/= 75 years old 2 Gender Risk Factor Female 1 Hx of CHF No 0 Hx of HTN Yes 1 Hx of Stroke/TIA/or VTE No 0 Hx of Diabetes No 0 Hx of Vascular Disease No 0 Total 4 Assessment /Plan Problems (1) Atrial fibrillation Status: Acute Problem Text: 06/27/18: Rate appears well controlled on current regimen EHCO : CONCLUSIONS: 1. Study is of acceptable technical quality. 2. Normal left ventricular (LV) size with low normal LV systolic function. 3. Aortic sclerosis with no stenosis or insufficiency. 4. Mild mitral insufficiency. 5. [id number]-[id number] tricuspid insufficiency. 6. Normal central venous pressure and mild pulmonary hypertension. 7. Severe biatrial enlargement. Diltiazem 240 mg started yesterday. continue Losartan 100 mg po daily. Rate controlled today. Will eval HR with activity. Eliquis 5 mg po bid for anti- coagulation. Echo pending. (2) Ribs, multiple fractures Status: Acute Response to Treatment: Stable Problem Text: 5/14/19: Displaced fractures of the left posterior 11th and 12th ribs. Nondisplaced left 10th rib fracture posterolaterally. Pain medications on board. I will order incentive spirometer (3) Hypokalemia Status: Acute Problem Text: 06/27/18: K+ 3.1 this morning. Replaced with oral K+ 40 meq. Reche ck K+ this afternoon (4) Constipation Status: Acute Problem Text: 06/27/18: Continue constipation despite appropriate bowel regimen. Bowel regimen intensified this morning. Consulted with attendings. Mag Citrate added x 1 this morning. will eval abdominal image. Bowel meds ordered. (5) Rib pain on left side Status: Acute Problem Text: Tylenol prn. added heat for mid back pain, appears muscular. most likely position related. (6) Injury due to fall Status: Acute Problem Text: 06/27/18: PT eval pending (7) Hyperkalemia Status: Resolved Problem Text: level 3.9 today. supplementation held. (8) Elevated alkaline phosphatase level Status: Chronic Plan/VTE VTE Prophylaxis Ordered?: Yes (Tomasaqurolan ) Plan Family Medicine Attending Note: I saw and examined Ms. Noble, discussed with Oswald Thompson DNP. Agree with her note as documented. Her heart rate has remained relatively well controlled. Unfortunately she had a mild elevation leukocytosis and some hypokalemia. I'm not certain of the cause of the leukocytosis, but it may be transient. Certainly atelectasis or pneumonia is a consideration because of her rib fractures. I've ordered a repeat chest x-ray for tomorrow morning. Her potassium supplement had been held because she was actually hyperkalemic when she was admitted. I have restarted this. Additionally, and unsurprisingly, both physical and occupational therapy do not feel she is safe for her home environment at this time. She has had multiple falls and several of them have included fractures. We will need to work out a disposition for her once her medical conditions are stable. This may be as early as tomorrow. 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, 24H, Fishbone Vital Signs/I&O Vital Signs Date Time Temp Pulse Resp B/P (MAP) Pulse Ox O2 Delivery O2 Flow Rate FiO2 06/27/18 04:00 98.8 99 18 131/88 (102) 94 06/25/18 17:16 Room Air I&O- Last 24 Hours up to 6 AM 06/27/18 06:00 Intake Total 1520 ml Output Total 700 ml Balance 820 ml Laboratory Data 24H LABS Laboratory Tests 2 06/27/18 05:08: Nucleated Red Blood Cells % (auto) 0.0, Blood Urea Nitrogen 22H, Creatinine 0.94, Sodium Level 140, Potassium Level 3.1#L, Chloride Level 105, Carbon Dioxide Level 30, Anion Gap 5L, Glomerular Filtration Rate > 60.0, Calcium Level 8.7L, Phosphorus Level 3.2, Albumin 3.3 CBC/BMP Laboratory Tests 06/27/18 05:08 Red Blood Count 4.34, Mean Corpuscular Volume 87.3, Mean Corpuscular Hemoglobin 30.2, Mean Corpuscular Hemoglobin Concent 34.6, Red Cell Distribution Width 12.2, Anion Gap 5 L OSWALD THOMPSON June 27, 2018 8:23 am Magdiel Srinivasan MD June 27, 2018 10:48 pm
[2018-06-27] MEDS: VITAMIN D 1,000 INTERNATIONAL UNITS TABLET PO SCH (08:55)
[2018-06-27] MEDS: APIXABAN 2.5 MG TAB (ELIQUIS) PO SCH ×2 (08:56→20:52)
[2018-06-27] MEDS: SENNA 8.6 MG TAB (SENOKOT) PO SCH ×2 (08:56→20:52)
[2018-06-27] MEDS: LOSARTAN 50 MG TAB PO SCH (08:56)
[2018-06-27] MEDS: hydroCHLOROthiazide 25 MG TAB PO SCH (08:56)
[2018-06-27] MEDS: buPROPion (WELLBUTRIN SR) 100 MG SR TAB PO SCH ×2 (08:57→20:52)
[2018-06-27] MEDS: FLUTICASONE PROP 0.05% NASAL SPRAY 16 GM (FLONASE) NARES SCH ×2 (08:57→20:52)
[2018-06-27] MEDS: DOCUSATE SODIUM 100 MG CAP PO SCH ×2 (08:57→20:52)
[2018-06-27] MEDS: MAGNESIUM CHLORIDE 64 MG TABCR (SLO MAG) PO SCH ×2 (08:58→20:51)
[2018-06-27] MEDS ORDERED: MAGNESIUM CITRATE 300 ML BTL PO ONE ×2 (09:00→17:00)
[2018-06-27] MEDS ORDERED: POTASSIUM CHLORIDE 10 MEQ SR TABLET PO ONE (09:00)
[2018-06-27 12:00] VITALS: BP 135/84
[2018-06-27 16:00] VITALS: BP 118/71
[2018-06-27] MEDS ORDERED: diphenhydrAMINE 25 MG CAP PO PRN (17:00)
[2018-06-27] MEDS ORDERED: KCL 10MEQ/100ML SWI (KRUN) 10 MEQ in APPROPRIATE DILUENT 1 EA IV ONE (17:00)
[2018-06-27 20:00] VITALS: BP 132/78
[2018-06-27] MEDS: POTASSIUM CHLORIDE 10 MEQ SR TABLET PO SCH (20:52)
[2018-06-27] MEDS: LATANOPROST 0.005% OPHTH SOLN 2.5 ML OU SCH (20:53)
[2018-06-28] VITALS (7 sets, daily range): BP systolic 117–138; BP diastolic 62–84
[2018-06-28 06:00] LABS: BASO % 0.3 % (0.0-1.0); EOS # 0.1 10^3/uL (0.0-0.50); EOS % 1.2 % (0.0-3.0); HEMOGLOBIN 12.8 g/dl (12.0-15.5); LYMPH # 2.1 10^3/uL (1.5-4.5); MEAN CORPUSCULAR HEMOGLOBIN 29.8 pg (27.0-33.0); MEAN CORPUSCULAR HGB CONC 33.7 g/dl (32.0-36.5); MEAN CORPUSCULAR VOLUME 88.6 fl (80.0-96.0); MONO # 1.4 10^3/uL (0.0-0.8); MONO % 11.7 % (0.0-5.0); NEUTROPHILS # 8.1 10^3/uL (1.8-7.7); NEUTROPHILS % 68.5 % (36.0-66.0); PLATELET COUNT, AUTOMATED 275 10^3/uL (150-450); RED BLOOD COUNT 4.29 10^6/uL (4.00-5.40); WHITE BLOOD COUNT 11.9 10^3/uL (4.0-10.0)
[2018-06-28 06:30] LABS: ALBUMIN 3.3 GM/DL (3.2-5.2); ALT/SGPT 43 U/L (12-78); BILIRUBIN,TOTAL 0.9 MG/DL (0.2-1.0); BLOOD UREA NITROGEN 20 MG/DL (7-18); CALCIUM LEVEL 8.8 MG/DL (8.8-10.2); CARBON DIOXIDE LEVEL 31 MEQ/L (21-32); CHLORIDE LEVEL 104 MEQ/L (98-107); CREATININE FOR GFR 0.89 MG/DL (0.55-1.30); GLOMERULAR FILTRATION RATE > 60.0 (>32); GLUCOSE, FASTING 134 MG/DL (70-100); POTASSIUM SERUM 3.9 MEQ/L (3.5-5.1); SODIUM LEVEL 138 MEQ/L (136-145); TOTAL PROTEIN 7.1 GM/DL (6.4-8.2)
[2018-06-28] MEDS: DOCUSATE SODIUM 100 MG CAP PO SCH ×2 (08:43→22:04)
[2018-06-28] MEDS: SENNA 8.6 MG TAB (SENOKOT) PO SCH ×2 (08:44→22:03)
[2018-06-28] MEDS: buPROPion (WELLBUTRIN SR) 100 MG SR TAB PO SCH ×2 (08:44→22:03)
[2018-06-28] MEDS: VITAMIN D 1,000 INTERNATIONAL UNITS TABLET PO SCH (08:45)
[2018-06-28] MEDS: APIXABAN 2.5 MG TAB (ELIQUIS) PO SCH ×2 (08:45→22:04)
[2018-06-28] MEDS: LOSARTAN 50 MG TAB PO SCH (08:45)
[2018-06-28] MEDS: hydroCHLOROthiazide 25 MG TAB PO SCH (08:45)
[2018-06-28] MEDS: MAGNESIUM CHLORIDE 64 MG TABCR (SLO MAG) PO SCH ×2 (08:46→22:05)
[2018-06-28] MEDS: FLUTICASONE PROP 0.05% NASAL SPRAY 16 GM (FLONASE) NARES SCH ×2 (08:46→22:04)
[2018-06-28] MEDS: POTASSIUM CHLORIDE 10 MEQ SR TABLET PO SCH ×2 (08:46→22:04)
--- NOTE | 2018-06-28 08:48 | IPNPDOC ---
Subjective Date Seen The patient was seen on 06/28/18. Subjective Chief Complaint/HPI Patient reports to be feeling well. She is working with PT. Nursing reports confusion last night which required patient's son to stay overnight with her in the hospital. Patient reports constipation and bloating to be much improved. She states she had a large bowel movement yesterday. No new concerns today Constitutional: Denies: Chills, Fever Pulmonary: Reports: Cough; Denies: Dyspnea, Pleuritic Chest Pain Cardiovascular: Denies: Chest Pain, Palpitations, Orthopnea, Edema Gastrointestinal: Denies: Nausea, Vomiting, Abdominal Pain, Constipation Genitourinary: Denies: Dysuria, Frequency Psych: Reports: Mood Normal Objective Physical Examination General Exam: Positive: Alert, No Acute Distress Neck Exam: Positive: Supple; Negative: JVD, thyromegaly Chest Exam: Positive: Clear to auscultation, Normal air movement Heart Exam: Positive: Rate Normal, Regular Rhythm, Normal S1, Normal S2; Negative: Murmurs, Rubs Telemetry: Positive: No significant arrhythmia Abdomen Exam: Positive: BS Hypoactive, Soft; Negative: Tenderness, Hepatospenomegaly Extremity Exam: Negative: Edema Psych Exam: Positive: Mood NL A-FIB/CHADSVASC A-FIB History Current/History of A-Fib/PAF?: Yes Current Oral Anticoagulant The: Yes Age/Risk Factor Scoring CHADSVASC: CHADSVASC Response (Comments) Value Age Risk Factor Age >/= 75 years old 2 Gender Risk Factor Female 1 Hx of CHF No 0 Hx of HTN Yes 1 Hx of Stroke/TIA/or VTE No 0 Hx of Diabetes No 0 Hx of Vascular Disease No 0 Total 4 Assessment /Plan Problems (1) Atrial fibrillation Status: Acute Problem Text: 06/28/18: Rate appears well controlled at rest. She does get slightly tachy with activity 06/27/18: Rate appears well controlled on current regimen EHCO : CONCLUSIONS: 1. Study is of acceptable technical quality. 2. Normal left ventricular (LV) size with low normal LV systolic function. 3. Aortic sclerosis with no stenosis or insufficiency. 4. Mild mitral insufficiency. 5. Enpr-gk-sufgfetp tricuspid insufficiency. 6. Normal central venous pressure and mild pulmonary hypertension. 7. Severe biatrial enlargement. Diltiazem 240 mg started yesterday. continue Losartan 100 mg po daily. Rate controlled today. Will eval HR with activity. Eliquis 5 mg po bid for anti- coagulation. Echo pending. (2) Ribs, multiple fractures Status: Acute Response to Treatment: Stable Problem Text: 06/28/18: Patient using incentive spirometer as directed. Patient with a slight cough and slight leukocytosis. Repeat chest x-ray this morning. Results pending. 06/27/18: Displaced fractures of the left posterior 11th and 12th ribs. Nondispl aced left 10th rib fracture posterolaterally. Pain medications on board. I will order incentive spirometer (3) Hypokalemia Status: Acute Problem Text: 06/28/18: K+ 3.9 this morning. Patient was placed back on her K+ 40 meq bid supplement. We will continue to monitor 06/27/18: K+ 3.1 this morning. Replaced with oral K+ 40 meq. Recheck K+ this afternoon (4) Injury due to fall Status: Acute Problem Text: 06/28/18: Not safe for discharge. Per PT patient will need therapy approx for 2 weeks 5 x per week 06/27/18: PT eval pending (5) Constipation Status: Acute Problem Text: 06/28/18: Patient with a large BM yesterday. We will continue to monitor and keep a bowel regimen in place 06/27/18: Continue constipation despite appropriate bowel regimen. Bowel regimen intensified this morning. Consulted with attending. Mag Citrate added x 1 this morning. will eval abdominal image. Bowel meds ordered. (6) Rib pain on left side Status: Acute Problem Text: Tylenol prn. added heat for mid back pain, appears muscular. most likely position related. (7) Hyperkalemia Status: Resolved Problem Text: level 3.9 today. supplementation held. (8) Elevated alkaline phosphatase level Status: Chronic Plan/VTE VTE Prophylaxis Ordered?: Yes (Eliquis ) Plan Family Medicine Attending Note: I saw and examined Ms. Noble, discussed with Oswald Thompson DNP. Agree with her note as documented. The patient continues to have some confusion at night; this is frustrating her son whose often called to help redirect her. I've agreed to start very low dose (2.5 mg) Ambien to see if this will help her sleep better. I anticipate we will be removing her to SNF status tomorrow. 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, I&O, 24H, Fishbone Vital Signs/I&O Vital Signs Date Time Temp Pulse Resp B/P (MAP) Pulse Ox O2 Delivery O2 Flow Rate FiO2 06/28/18 04:00 98.8 107 18 122/78 (93) 96 06/25/18 17:16 Room Air I&O- Last 24 Hours up to 6 AM 06/28/18 06:00 Intake Total 700 ml Output Total 200 ml Balance 500 ml Laboratory Data 24H LABS Laboratory Tests 2 06/28/18 05:41: Immature Granulocyte % (Auto) 0.3, White Blood Count 11.9H, Red Blood Count 4.29, Hemoglobin 12.8, Hematocrit 38.0, Mean Corpuscular Volume 88.6, Mean Corpuscular Hemoglobin 29.8, Mean Corpuscular Hemoglobin Concent 33.7, Red Cell Distribution Width 12.5, Platelet Count 275, Neutrophils (%) (Auto) 68.5H, Lymphocytes (%) (Auto) 18.0L, Monocytes (%) (Auto) 11.7H, Eosinophils (%) (Auto) 1.2, Basophils (%) (Auto) 0.3, Neutrophils # (Auto) 8.1H, Lymphocytes # (Auto) 2.1, Monocytes # (Auto) 1.4H, Eosinophils # (Auto) 0.1, Basophils # (Auto) 0.0, Nucleated Red Blood Cells % (auto) 0.0, Anion Gap 3L, Glomerular Filtration Rate > 60.0, Blood Urea Nitrogen 20H, Creatinine 0.89, Sodium Level 138, Potassium Level 3.9#, Chloride Level 104, Carbon Dioxide Level 31, Calcium Level 8.8, Asp artate Amino Transf (AST/SGOT) 24, Alanine Aminotransferase (ALT/SGPT) 43, Alkaline Phosphatase 150H, Total Bilirubin 0.9, Total Protein 7.1, Albumin 3.3, Albumin/Globulin Ratio 0.87L CBC/BMP Laboratory Tests 06/27/18 12:57 06/28/18 05:41 Red Blood Count 4.29, Mean Corpuscular Volume 88.6, Mean Corpuscular Hemoglobin 29.8, Mean Corpuscular Hemoglobin Concent 33.7, Red Cell Distribution Width 12.5, Neutrophils (%) (Auto) 68.5 H, Lymphocytes (%) (Auto) 18.0 L, Monocytes (%) (Auto) 11.7 H, Eosinophils (%) (Auto) 1.2, Basophils (%) (Auto) 0.3, Neutrophils # (Auto) 8.1 H, Lymphocytes # (Auto) 2.1, Monocytes # (Auto) 1.4 H, Eosinophils # (Auto) 0.1, Basophils # (Auto) 0.0, Calcium Level 8.8, Aspartate Amino Transf (AST/SGOT) 24, Alanine Aminotransferase (ALT/SGPT) 43, Alkaline Phosphatase 150 H, Total Bilirubin 0.9, Total Protein 7.1, Albumin 3.3 OSWALD THOMPSON June 28, 2018 8:48 am Magdiel Srinivasan MD June 28, 2018 10:23 pm
--- NOTE | 2018-06-28 09:26 | REP ---
Chest x-ray: Two views. History: Leukocytosis. Comparison study: June 26, 2018. Findings: EKG monitoring electrodes overlie the chest. There is blunting of one of the posterior pleural angles visible on the lateral film unchanged from prior study 2 days ago. This is probably left-sided. Heart is enlarged. Aorta is tortuous as before. There is a scoliosis in the thoracic spine. No new infiltrate is seen. Impression: Blunting of the left posterior pleural angle consistent with small amount of pleural fluid. No acute infiltrate. Cardiomegaly. Scoliosis. Electronically Signed by Chalino Crocker MD 06/28/2018 01:39 P
[2018-06-28 18:50] LABS: APPEARANCE, URINE HAZY (CLEAR); BACTERIA, URINE AUTO 3+ (NEGATIVE); BILIRUBIN, URINE AUTO NEGATIVE (NEGATIVE); BLOOD, URINE BLOOD 1+ (NEGATIVE); COLOR, URINE YELLOW (YELLOW); GLUCOSE, URINE (UA) AUTO NEGATIVE (NEGATIVE); KETONE, URINE AUTO TRACE mg/dL (NEGATIVE); LEUKOCYTE ESTERASE, URINE AUTO 2+ (NEGATIVE); MUCUS, URINE SMALL (NEGATIVE); NITRITE, URINE AUTO NEGATIVE (NEGATIVE); PROTEIN, URINE AUTO NEGATIVE (NEGATIVE); RBC, URINE AUTO 4 /HPF (0-3); SPECIFIC GRAVITY URINE AUTO 1.013 (1.002-1.035); SQUAMOUS EPITHELIAL CELL UR AU 0 /HPF (0-6); UROBILINOGEN, URINE AUTO 0.2 mg/dL (0.0-2.0); WBC, URINE AUTO 17 /HPF (0-3)
[2018-06-28] MEDS: zolPIDEM TARTRATE 5 MG TAB PO PRN (22:02)
[2018-06-28] MEDS: LATANOPROST 0.005% OPHTH SOLN 2.5 ML OU SCH (22:04)
[2018-06-29] MEDS: zolPIDEM TARTRATE 5 MG TAB PO PRN (04:15)
[2018-06-29 06:00] VITALS: BP 129/78
[2018-06-29 06:08] LABS: BASO # 0.1 10^3/uL (0.0-0.2); BASO % 0.5 % (0.0-1.0); EOS # 0.2 10^3/uL (0.0-0.50); EOS % 1.5 % (0.0-3.0); HEMATOCRIT 35.7 % (36.0-47.0); HEMOGLOBIN 11.9 g/dl (12.0-15.5); LYMPH # 1.6 10^3/uL (1.5-4.5); MEAN CORPUSCULAR HEMOGLOBIN 30.6 pg (27.0-33.0); MEAN CORPUSCULAR HGB CONC 33.3 g/dl (32.0-36.5); MEAN CORPUSCULAR VOLUME 91.8 fl (80.0-96.0); MONO # 1.3 10^3/uL (0.0-0.8); MONO % 13.2 % (0.0-5.0); NEUTROPHILS # 6.7 10^3/uL (1.8-7.7); NEUTROPHILS % 68.5 % (36.0-66.0); PLATELET COUNT, AUTOMATED 223 10^3/uL (150-450); RED BLOOD COUNT 3.89 10^6/uL (4.00-5.40); WHITE BLOOD COUNT 9.8 10^3/uL (4.0-10.0)
[2018-06-29 06:26] LABS: BLOOD UREA NITROGEN 17 MG/DL (7-18); CALCIUM LEVEL 8.7 MG/DL (8.8-10.2); CARBON DIOXIDE LEVEL 29 MEQ/L (21-32); CHLORIDE LEVEL 105 MEQ/L (98-107); CREATININE FOR GFR 0.87 MG/DL (0.55-1.30); GLOMERULAR FILTRATION RATE > 60.0 (>32); GLUCOSE, FASTING 130 MG/DL (70-100); POTASSIUM SERUM 4.1 MEQ/L (3.5-5.1); SODIUM LEVEL 139 MEQ/L (136-145)
[2018-06-29 08:00] VITALS: BP 134/82
[2018-06-29] MEDS: buPROPion (WELLBUTRIN SR) 100 MG SR TAB PO SCH ×2 (08:08→21:19)
[2018-06-29] MEDS: SENNA 8.6 MG TAB (SENOKOT) PO SCH ×2 (08:08→21:19)
[2018-06-29] MEDS: APIXABAN 2.5 MG TAB (ELIQUIS) PO SCH ×2 (08:08→21:20)
[2018-06-29] MEDS: DOCUSATE SODIUM 100 MG CAP PO SCH ×2 (08:08→21:19)
[2018-06-29] MEDS: VITAMIN D 1,000 INTERNATIONAL UNITS TABLET PO SCH (08:08)
[2018-06-29] MEDS: diltiaZEM **CD** 180 MG CAP PO SCH (08:09)
[2018-06-29] MEDS: hydroCHLOROthiazide 25 MG TAB PO SCH (08:09)
[2018-06-29] MEDS: LOSARTAN 50 MG TAB PO SCH (08:10)
[2018-06-29] MEDS: POTASSIUM CHLORIDE 10 MEQ SR TABLET PO SCH ×2 (08:10→21:19)
[2018-06-29] MEDS: MAGNESIUM CHLORIDE 64 MG TABCR (SLO MAG) PO SCH ×2 (08:11→21:19)
[2018-06-29] MEDS: FLUTICASONE PROP 0.05% NASAL SPRAY 16 GM (FLONASE) NARES SCH ×2 (08:11→21:18)
--- NOTE | 2018-06-29 09:21 | IPNPDOC ---
Subjective Date Seen The patient was seen on 06/29/18. Subjective Chief Complaint/HPI Patient continues to report a very difficulty time sleeping. She was given Ambien with no effect. Constitutional: Denies: Chills, Fever Pulmonary: Denies: Dyspnea, Cough, Pleuritic Chest Pain Cardiovascular: Denies: Chest Pain, Palpitations, Orthopnea, Edema Gastrointestinal: Denies: Nausea, Vomiting, Abdominal Pain Objective Physical Examination General Exam: Positive: Alert, No Acute Distress Neck Exam: Positive: Supple; Negative: JVD, thyromegaly Chest Exam: Positive: Clear to auscultation, Normal air movement; Negative: Rales, Rhonchi, Wheezing Heart Exam: Positive: Rate Normal, Regular Rhythm, Normal S1, Normal S2; Negative: Murmurs, Rubs Telemetry: Positive: No significant arrhythmia Abdomen Exam: Positive: BS Hypoactive, Soft; Negative: Tenderness, Hepatospenomegaly Extremity Exam: Negative: Edema Psych Exam: Positive: Mood NL A-FIB/CHADSVASC A-FIB History Current/History of A-Fib/PAF?: Yes Current Oral Anticoagulant The: Yes Age/Risk Factor Scoring CHADSVASC: CHADSVASC Response (Comments) Value Age Risk Factor Age >/= 75 years old 2 Gender Risk Factor Female 1 Hx of CHF No 0 Hx of HTN Yes 1 Hx of Stroke/TIA/or VTE No 0 Hx of Diabetes No 0 Hx of Vascular Disease No 0 Total 4 Assessment /Plan Problems (1) Atrial fibrillation Status: Acute Problem Text: 06/29/18: Diltazem increased to 300mg this morning. She was running a little tachy throughout the evening, night and this morning. We will continue to monitor and adjust medications accordingly 06/28/18: Rate appears well controlled at rest. She does get slightly tachy with activity 06/27/18: Rate appears well controlled on current regimen EHCO : CONCLUSIONS: 1. Study is of acceptable technical quality. 2. Normal left ventricular (LV) size with low normal LV systolic function. 3. Aortic sclerosis with no stenosis or insufficiency. 4. Mild mitral insufficiency. 5. Wekq-ca-ckutdofc tricuspid insufficiency. 6. Normal central venous pressure and mild pulmonary hypertension. 7. Severe biatrial enlargement. Diltiazem 240 mg started yesterday. continue Losartan 100 mg po daily. Rate controlled today. Will eval HR with activity. Eliquis 5 mg po bid for anti- coagulation. Echo pending. (2) Ribs, multiple fractures Status: Acute Response to Treatment: Stable Problem Text: 06/28/18: Patient using incentive spirometer as directed. Patient with a slight cough and slight leukocytosis. Repeat chest x-ray this morning. Results pending. 06/27/18: Displaced fractures of the left posterior 11th and 12th ribs. Nondisplaced left 10th rib fracture posterolaterally. Pain medications on board. I will order incentive spirometer (3) Hypokalemia Status: Acute Problem Text: 06/29/18: K+ 4.1 06/28/18: K+ 3.9 this morning. Patient was placed back on her K+ 40 meq bid supp lement. We will continue to monitor 06/27/18: K+ 3.1 this morning. Replaced with oral K+ 40 meq. Recheck K+ this afternoon (4) Injury due to fall Status: Acute Problem Text: 06/28/18: Not safe for discharge. Per PT patient will need therapy approx for 2 weeks 5 x per week 06/27/18: PT eval pending (5) Rib pain on left side Status: Acute Problem Text: Tylenol prn. added heat for mid back pain, appears muscular. most likely position related. (6) Hyperkalemia Status: Resolved Problem Text: level 3.9 today. supplementation held. (7) Elevated alkaline phosphatase level Status: Chronic (8) Constipation Status: Resolved Problem Text: 06/28/18: Patient with a large BM yesterday. We will continue to monitor and keep a bowel regimen in place 06/27/18: Continue constipation despite appropriate bowel regimen. Bowel regimen intensified this morning. Consulted with attending. Mag Citrate added x 1 this morning. will eval abdominal image. Bowel meds ordered. Plan/VTE VTE Prophylaxis Ordered?: Yes (Eliquis ) Plan Family Medicine Attending Note: I saw and examined Ms. Noble, discussed with Oswald Thompson DNP. Agree with her note as documented. Her leukocytes and potassium have normalized. She was accepted to a ARU once medically cleared. I anticipate this will be tomorrow. I spoke to her son about her insomnia. Last night she had a low dose of Ambien, but woke up with a nightmare. I do not think the Ambien gave for the nightmare, I think it probably was not strong enough and allowed her to remain in a hypnopompic state long enough that she remembered her dream. I'm recommending we try a regular dose of 5 mg of Ambien tonight. This also gives her nightmares, we'll need to abandon Ambien and find another medication to help her sleep. Ultimately I think the fix of this problem is to get her back in her home environment, however, because she has rehabilitation needs this will take some time. 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, Fishbone Vital Signs/I&O Vital Signs Date Time Temp Pulse Resp B/P (MAP) Pulse Ox O2 Delivery O2 Flow Rate FiO2 06/29/18 08:10 119 148/81 06/29/18 06:00 98.9 16 93 06/25/18 17:16 Room Air I&O- Last 24 Hours up to 6 AM 06/29/18 06:00 Intake Total 480 ml Output Total 850 ml Balance -370 ml Laboratory Data 24H LABS Laboratory Tests 2 06/28/18 18:18: Urine Appearance HAZY, Urine Color YELLOW, Urine pH 5.0, Urine Specific [place] 1.013, Urine Protein NEGATIVE, Urine Glucose (UA) NEGATIVE, Urine Ketones TRACEH, Urine Urobilinogen 0.2, Urine Bilirubin NEGATIVE, Urine Leukocyte Esterase 2+H, Urine Blood 1+H, Urine Nitrite NEGATIVE, Urine WBC (Auto) 17H, Urine RBC (Auto) 4H, Urine Hyaline Casts (Auto) 0, Urine Bacteria (Auto) 3+H, Urine Squamous Epithelial Cells 0, Urine Mucus (Auto) SMALL, Urine Sperm (Auto) 06/29/18 05:32: Immature Granulocyte % (Auto) 0.3, White Blood Count 9.8, Red Blood Count 3.89L, Hemoglobin 11.9L, Hematocrit 35.7L, Mean Corpuscular Volume 91.8, Mean Corpuscular Hemoglobin 30.6, Mean Corpuscular Hemoglobin Concent 33.3, Red Cell Distribution Width 12.6, Platelet Count 223, Neutrophils (%) (Auto) 68.5H, Lymphocytes (%) (Auto) 16.0L, Monocytes (%) (Auto) 13.2H, Eosinophils (%) (Auto) 1.5, Basophils (%) (Auto) 0.5, Neutrophils # (Auto) 6.7, Lymphocytes # (Auto) 1.6, Monocytes # (Auto) 1.3H, Eosinophils # (Auto) 0.2, Basophils # (Auto) 0.1, Nucleated Red Blood Cells % (auto) 0.0, Anion Gap 5L, Glomerular Filtration Rate > 60.0, Blood Urea Nitrogen 17, Creatinine 0.87, Sodium Level 139, Potassium Level 4.1, Chloride Level 105, Carbon Dioxide Level 29, Calcium Level 8.7L CBC/BMP Laboratory Tests 06/29/18 05:32 Red Blood Count 3.89 L, Mean Corpuscular Volume 91.8, Mean Corpuscular Hemoglobin 30.6, Mean Corpuscular Hemoglobin Concent 33.3, Red Cell Distribution Width 12.6, Neutrophils (%) (Auto) 68.5 H, Lymphocytes (%) (Auto) 16.0 L, Monocytes (%) (Auto) 13.2 H, Eosinophils (%) (Auto) 1.5, Basophils (%) (Auto) 0.5, Neutrophils # (Auto) 6.7, Lymphocytes # (Auto) 1.6, Monocytes # (Auto) 1.3 H, Eosinophils # (Auto) 0.2, Basophils # (Auto) 0.1, Calcium Level 8.7 L OSWALD THOMPSON June 29, 2018 9:21 am Magdiel Srinivasan MD June 29, 2018 11:14 pm
[2018-06-29] MEDS ORDERED: zolPIDEM TARTRATE 5 MG TAB PO PRN (09:30)
[2018-06-29 12:00] VITALS: BP 112/70
[2018-06-29 16:00] VITALS: BP 135/75
[2018-06-29 20:00] VITALS: BP 120/70
[2018-06-29] MEDS: LATANOPROST 0.005% OPHTH SOLN 2.5 ML OU SCH (21:18)
[2018-06-29 23:59] VITALS: BP 136/70
[2018-06-30] MEDS: ACETAMINOPHEN TAB 650MG DOSE (2X325MG) PO PRN ×3 (00:17→14:08)
[2018-06-30 04:00] VITALS: BP 139/79
[2018-06-30 05:57] LABS: BASO # 0.1 10^3/uL (0.0-0.2); BASO % 0.5 % (0.0-1.0); EOS # 0.2 10^3/uL (0.0-0.50); EOS % 1.5 % (0.0-3.0); HEMATOCRIT 36.4 % (36.0-47.0); HEMOGLOBIN 12.3 g/dl (12.0-15.5); LYMPH # 2.5 10^3/uL (1.5-4.5); LYMPH % 21.9 % (24.0-44.0); MEAN CORPUSCULAR HEMOGLOBIN 30.8 pg (27.0-33.0); MEAN CORPUSCULAR HGB CONC 33.8 g/dl (32.0-36.5); MONO # 1.4 10^3/uL (0.0-0.8); MONO % 12.8 % (0.0-5.0); NEUTROPHILS % 62.9 % (36.0-66.0); PLATELET COUNT, AUTOMATED 271 10^3/uL (150-450); WHITE BLOOD COUNT 11.2 10^3/uL (4.0-10.0)
[2018-06-30 06:24] LABS: BLOOD UREA NITROGEN 15 MG/DL (7-18); CALCIUM LEVEL 9.4 MG/DL (8.8-10.2); CARBON DIOXIDE LEVEL 27 MEQ/L (21-32); CHLORIDE LEVEL 107 MEQ/L (98-107); CREATININE FOR GFR 0.86 MG/DL (0.55-1.30); GLOMERULAR FILTRATION RATE > 60.0 (>32); GLUCOSE, FASTING 129 MG/DL (70-100); POTASSIUM SERUM 4.1 MEQ/L (3.5-5.1); SODIUM LEVEL 140 MEQ/L (136-145)
[2018-06-30 08:00] VITALS: BP 146/87
[2018-06-30] MEDS: VITAMIN D 1,000 INTERNATIONAL UNITS TABLET PO SCH (08:40)
[2018-06-30] MEDS: DOCUSATE SODIUM 100 MG CAP PO SCH (08:41)
[2018-06-30] MEDS: POTASSIUM CHLORIDE 10 MEQ SR TABLET PO SCH (08:41)
[2018-06-30 08:42] VITALS: BP 146/87
[2018-06-30] MEDS: LOSARTAN 50 MG TAB PO SCH (08:42)
[2018-06-30] MEDS: MAGNESIUM CHLORIDE 64 MG TABCR (SLO MAG) PO SCH (08:45)
[2018-06-30] MEDS: APIXABAN 2.5 MG TAB (ELIQUIS) PO SCH (08:46)
[2018-06-30] MEDS: hydroCHLOROthiazide 25 MG TAB PO SCH (08:47)
[2018-06-30] MEDS: diltiaZEM **CD** 180 MG CAP PO SCH (08:47)
[2018-06-30] MEDS: SENNA 8.6 MG TAB (SENOKOT) PO SCH (08:48)
[2018-06-30] MEDS: buPROPion (WELLBUTRIN SR) 100 MG SR TAB PO SCH (08:48)
[2018-06-30] MEDS: FLUTICASONE PROP 0.05% NASAL SPRAY 16 GM (FLONASE) NARES SCH (08:48)
[2018-06-30] MEDS ORDERED: CARD120C3 PO (10:53)
[2018-06-30] MEDS ORDERED: COLA100C5 PO (10:53)
[2018-06-30] MEDS ORDERED: CARD180C4 PO (10:53)
[2018-06-30] MEDS ORDERED: AMBI5TAB PO (10:53)
[2018-06-30] MEDS ORDERED: ELIQ2.5T PO (10:53)
--- NOTE | 2018-06-30 19:37 | DS.PDOC ---
Discharge Summary General Date of Admission June 25, 2018 at 15:41 Date of Discharge 06/30/18 to ARU Primary Care Physician: OSWALD THOMPSON Attending Physician: Magdiel Srinivasan MD Discharge Summary PROCEDURES PERFORMED DURING STAY: [facility] : CONCLUSIONS: 1. Study is of acceptable technical quality. 2. Normal left ventricular (LV) size with low normal LV systolic function. 3. Aortic sclerosis with no stenosis or insufficiency. 4. Mild mitral insufficiency. 5. Bnqn-gj-[id number] tricuspid insufficiency. 6. Normal central venous pressure and mild pulmonary hypertension. 7. Severe biatrial enlargement. ADMITTING DIAGNOSES: 1. Atrial fibrillation 2. Rib Fractures 3. Hyperkalemia 4. Constipation DISCHARGE DIAGNOSES: 1. Atrial Fibrillation 2. Rib Fractures 3. Insomnia 4. Hypokalemia COMPLICATIONS/CHIEF COMPLAINT: Atrial Fibrillation. HISTORY OF PRESENT ILLNESS: On day of admission Marcella was feeling woozy and lightheaded. She fell and struck left rib area. She presented in the emergency room (ER) because of complaint of rib pain after her fall. She was noted to have three rib fractures to 10, 11 and 12 posteriorly on the left side corresponding to the area of pain, however, she was also noted to be in atrial fibrillation with rate varying between 60-126. Her rate went very fast with minimal activity. She has no prior history of atrial fibrillation and no history of coronary artery disease. She was admitted to PCU for further evaluation and treatment HOSPITAL COURSE: 1. Atrial Fibrillation: Her Diltiazem was titrated throughout her hospital stay until her rate control improved. She was discharged on 300mg po q day. She was started on Eliquis 5mg i po bid. Her rate improved around day 4 of hospital admission. Patient did not clear PT and it was deemed she needed further rehab. She was discharged on 06/30/18 to ARU. 2. Rib Fractures: Patient was given an incentive spirometer to use at bedside and was provided pain control. She worked with PT. 3. Insomnia: She had a very difficult time sleeping during her hospital stay. She called her son in the middle of the night the first few days of her admission. She was started on Benadryl initially which caused hyperactivity. She was then changed to low dose Ambien 2.5 mg which provided minimal benefit. Ambien was increased to 5mg with good effect 4. Hyper/hypokalemia: Hyperkalemia (5.6) was noted on admission and her K+ supplements were held. She developed hypokalemia on day 2 of admission and her K+ supplements were restarted. On day of discharge her K+ was 4.1 5. Constipation: Treated with bowel regimen DISCHARGE MEDICATIONS: Please see below. ALLERGIES: Please see below. PHYSICAL EXAMINATION ON DISCHARGE: VITAL SIGNS: Please see below. GENERAL: AOx3 HEENT: unremarkable NECK: soft, supple CARDIOVASCULAR EXAMINATION: Regular Rate RESPIRATORY EXAMINATION: CTA ABDOMINAL EXAMINATION: soft, non-tender, non-distended EXTREMITIES: no edema SKIN: warm, dry NEUROLOGICAL EXAMINATION: intact LABORATORY DATA: Please see below. IMAGING: Lumbar CT spine w/out contrast: IMPRESSION: Scoliosis and degenerative spondylosis changes. No traumatic abnormality. CT chest without contrast: IMPRESSION: Displaced fractures of the left posterior 11th and 12th ribs. Nondisplaced left 10th rib fracture posterolaterally. Small quantity of adjacent pleural thickening. Scoliosis. Otherwise no acute disease. Cardiomegaly. Chest x-ray: Impression: Cardiomegaly. Scoliosis. Otherwise no acute disease. Abdomen:Impression: Air and stool distended colon. No free air. DISCHARGE PLAN: to ARU DISPOSITION: Goal is home with services DISCHARGE INSTRUCTIONS: 1. D/C to ARU, f/u with pcp upon completion of rehab ITEMS TO FOLLOWUP ON ON OUTPATIENT: 1. ECHO results Vital Signs/I&Os Vital Signs Date Time Temp Pulse Resp B/P (MAP) Pulse Ox O2 Delivery O2 Flow Rate FiO2 06/30/18 08:47 99 06/30/18 08:42 146/87 06/30/18 08:00 98.4 18 96 06/25/18 17:16 Room Air I&O- Last 24 Hours up to 6 AM 06/30/18 06:00 Intake Total 420 ml Output Total 450 ml Balance -30 ml Laboratory Data Labs 24H Laboratory Tests 2 06/30/18 05:38: Immature Granulocyte % (Auto) 0.4, White Blood Count 11.2H, Red Blood Count 4.00, Hemoglobin 12.3, Hematocrit 36.4, Mean Corpuscular Volume 91.0, Mean Corpuscular Hemoglobin 30.8, Mean Corpuscular Hemoglobin Concent 33.8, Red Cell Distribution Width 12.4, Platelet Count 271, Neutrophils (%) (Auto) 62.9, Lymphocytes (%) (Auto) 21.9L, Monocytes (%) (Auto) 12.8H, Eosinophils (%) (Auto) 1.5, Basophils (%) (Auto) 0.5, Neutrophils # (Auto) 7.0, Lymphocytes # (Auto) 2 .5, Monocytes # (Auto) 1.4H, Eosinophils # (Auto) 0.2, Basophils # (Auto) 0.1, Nucleated Red Blood Cells % (auto) 0.0, Anion Gap 6L, Glomerular Filtration Rate > 60.0, Blood Urea Nitrogen 15, Creatinine 0.86, Sodium Level 140, Potassium Level 4.1, Chloride Level 107, Carbon Dioxide Level 27, Calcium Level 9.4 CBC/BMP Laboratory Tests 06/30/18 05:38 Red Blood Count 4.00, Mean Corpuscular Volume 91.0, Mean Corpuscular Hemoglobin 30.8, Mean Corpuscular Hemoglobin Concent 33.8, Red Cell Distribution Width 12.4, Neutrophils (%) (Auto) 62.9, Lymphocytes (%) (Auto) 21.9 L, Monocytes (%) (Auto) 12.8 H, Eosinophils (%) (Auto) 1.5, Basophils (%) (Auto) 0.5, Neutrophils # (Auto) 7.0, Lymphocytes # (Auto) 2.5, Monocytes # (Auto) 1.4 H, Eosinophils # (Auto) 0.2, Basophils # (Auto) 0.1, Calcium Level 9.4 Microbiology Microbiology 06/28/18 Urine Culture, Received Pending Discharge Medications Scheduled Apixaban (Eliquis) 2.5 Mg Tablet, 5 MG PO BID Bupropion Hcl (Bupropion HCl Sr) 200 Mg Tab, 200 MG PO BID, (Reported) Cholecalciferol (Vitamin D3) (Vitamin D3) 2,000 Unit Cap, 2,000 UNIT PO DAILY, (Reported) Diltiazem Hcl (Cardizem Cd) 120 Mg Cap.er.24h, 120 MG PO DAILY Diltiazem Hcl (Cardizem Cd) 180 Mg Cap.er.24h, 180 MG PO DAILY Docusate Sodium (Colace) 100 Mg Capsule, 100 MG PO BID Hydrochlorothiazide (Hydrochlorothiazide) 25 Mg Tablet, 25 MG PO DAILY, (Reported) Latanoprost/Pf (Latanoprost 0.005% Eye Drop) 7.5 Ml Drops, 1 DROP OU QHS, (Reported) Losartan Potassium (Losartan Potassium) 100 Mg Tab, 100 MG PO BID, (Reported) Magnesium Chloride (Mag64) 64 Mg Tabcr, 128 MG PO BID, (Reported) Potassium Chloride (Potassium Chloride) 20 Meq Tab, 40 MEQ PO BID, (Reported) Scheduled PRN Aspirin (Aspirin) 325 Mg Tablet, 325 MG PO QHS PRN for PAIN, (Reported) Loratadine (Loratadine) 10 Mg Tablet, 10 MG PO DAILY PRN for ALLEGIES, (Reported) Zolpidem Tartrate (Ambien) 5 Mg Tablet, 5 MG PO QHSP PRN for insomnia Allergies Coded Allergies: WESLEY Inhibitors (Verified Allergy, Severe, angioedema, 06/25/18) Sulfa (Sulfonamide Antibiotics) (Verified Allergy, Intermediate, 06/25/18) amlodipine (Verified Adverse Reaction, Intermediate, hot flashes, 06/25/18) ARB-Angiotensin Receptor Antagonist (Verified Adverse Reaction, Mild, fatigue, 06/25/18) atenolol (Verified Adverse Reaction, Mild, cough, 06/25/18) OSWALD THOMPSON June 30, 2018 10:54
[2018-07-10] MEDS ORDERED: CARD180C4 PO (21:50)
[2018-07-10] MEDS ORDERED: PANT40TA3 PO (21:50)
[2018-07-10] MEDS ORDERED: CARD120C3 PO (21:50)
[2018-07-10] MEDS ORDERED: ELIQ5TAB PO (21:50)
[2018-07-10] MEDS ORDERED: KLOR10TA76 PO (21:50)
[2018-07-10] MEDS ORDERED: MAGN64TASA PO (21:50)
[2018-07-10] MEDS ORDERED: HYDR25TAB PO (21:50)
[2018-07-10] MEDS ORDERED: BUPR10TASR PO (21:50)
== END 2018-06-30 14:48 | disposition home or self-care (01) | DRG 309 ==
LOC: M ED 11:56 → M ED INP 15:41 → M PCU 17:38
PROVIDERS: ADMIT Family Medicine; ATTEND Family Medicine
DX: I48.91 Unspecified atrial fibrillation (principal); S22.42XA Multiple fractures of ribs, left side, initial encounter for closed fracture; I08.3 Combined rheumatic disorders of mitral, aortic and tricuspid valves; E87.5 Hyperkalemia; K59.00 Constipation, unspecified; G47.00 Insomnia, unspecified; E87.6 Hypokalemia; Z79.899 Other long term (current) drug therapy; Z88.2 Allergy status to sulfonamides; Z88.8 Allergy status to other drugs, medicaments and biological substances; I10 Essential (primary) hypertension; W18.30XA Fall on same level, unspecified, initial encounter; Y92.009 Unspecified place in unspecified non-institutional (private) residence as the place of occurrence of the external cause

== ENCOUNTER → 2018-08-11 | Outpatient (CLI) | payer MEDICARE, OTHER ==
[~2018-08-11] MED LIST changes: +AMBI5TAB PO; +ASPI1TAB22 PO; +BUPR10TASR PO; +CARD120C3 PO; +CARD180C4 PO; +COLA100C5 PO; +ELIQ2.5T PO; +ELIQ5TAB PO; +HYDR25TAB PO; +KLOR10TA76 PO; +LATA0.0015 OU; +LORA-674 PO; +NAPR-832 PO; +PANT40TA3 PO
--- NOTE | 2018-08-11 09:22 | REPMRS ---
Patient History The patient states she has not had a clinical breast exam in over a year. Family history of colorectal cancer at age 73 in mother, colorectal cancer at age 68 in brother, colorectal cancer at age 70 in brother. Took hormonal contraceptives for 2 years. Digital Woman Screen Mammo: August 11, 2018 - Exam #: [id number] Bilateral CC and MLO view(s) were taken. Technologist: Lashell Crews, Technologist Prior study comparison: April 26, 2016, digital woman screen mammo performed at [facility]. June 04, 2014, digital woman screen mammo performed at [facility]. May 11, 2013, bilateral bilat screen digital mammo, performed at [facility] (I). FINDINGS: The breast tissue is almost entirely fat. There has been no change in the appearance of the mammogram from the prior studies. There is no interval development of dominant mass, architectural distortion, or grouped microcalcification typical of malignancy. 3-D tomosynthesis shows no additional findings. Assessment: BI-RADS/ACR category 1 mammogram. Negative Mammogram. Recommendation Routine screening mammogram of both breasts in 1 year (for women over age 40). This patient's Lifetime Breast Cancer RIsk is estimated at 0.6 %. This mammogram was interpreted with the aid of an FDA-approved computer-aided dectection system. Electronically Signed By: Danny Crocker MD 08/11/18 0922
== END ==
LOC: M WHC 08:38
PROVIDERS: ATTEND Nurse Practitioner Family
DX: Z12.31 Encounter for screening mammogram for malignant neoplasm of breast (principal); Z80.0 Family history of malignant neoplasm of digestive organs

== ENCOUNTER → 2018-08-18 | Outpatient (CLI) | payer MEDICARE, OTHER ==
[2018-08-18 09:27] LABS: HEMATOCRIT 40.8 % (36.0-47.0); HEMOGLOBIN 13.5 g/dl (12.0-15.5); MEAN CORPUSCULAR HEMOGLOBIN 29.3 pg (27.0-33.0); MEAN CORPUSCULAR HGB CONC 33.1 g/dl (32.0-36.5); MEAN CORPUSCULAR VOLUME 88.7 fl (80.0-96.0); PLATELET COUNT, AUTOMATED 340 10^3/uL (150-450)
[2018-08-18 10:07] LABS: CALCIUM LEVEL 9.5 MG/DL (8.8-10.2); CREATININE FOR GFR 1.12 MG/DL (0.55-1.30); GLOMERULAR FILTRATION RATE 49.5 (>32); POTASSIUM SERUM 3.5 MEQ/L (3.5-5.1)
== END ==
LOC: M LAB 09:01
PROVIDERS: ATTEND Nurse Practitioner Family
DX: I48.91 Unspecified atrial fibrillation (principal); I10 Essential (primary) hypertension

== ENCOUNTER → 2018-11-27 | Outpatient (CLI) | payer MEDICARE, OTHER ==
--- NOTE | 2018-11-27 15:04 | REP ---
CT brain: 11/27/2018. Indication: Head trauma. Technique: Axial images of the brain were obtained from skull base to vertex without IV iodinated contrast. Comparison: 07/04/2018. Findings: There is no intracranial hemorrhage, shift of the midline structures or acute calvarial fracture. The enlarged ventricles are stable. There is absence of the septum pellucidum. Intracranial atherosclerotic disease is present. There are scattered areas of white matter hypoattenuation. Impression: No acute post traumatic intracranial injury. Stable ventriculomegaly. Sequelae of chronic microangiopathic ischemic disease. Electronically Signed by Foreign Bang DO 11/27/2018 03:05 P
[2018-11-27 15:06] LABS: CALCIUM LEVEL 9.3 MG/DL (8.8-10.2); CREATININE FOR GFR 1.11 MG/DL (0.55-1.30); MAGNESIUM LEVEL 1.8 MG/DL (1.8-2.4); POTASSIUM SERUM 4.2 MEQ/L (3.5-5.1)
[2018-11-27 15:17] LABS: MAU/CREAT RATIO 118.2 MCG/MG (0.0-30.0)
== END ==
LOC: M RAD 13:54
PROVIDERS: ATTEND Family Medicine
DX: I10 Essential (primary) hypertension (principal); R29.6 Repeated falls; E83.42 Hypomagnesemia; S09.90XA Unspecified injury of head, initial encounter; W19.XXXA Unspecified fall, initial encounter; Y92.9 Unspecified place or not applicable
CPT/HCPCS: 36415; 70450; 80048; 82043; 83735; G0463

== ENCOUNTER 2018-12-21 15:31 | Emergency (ER) | payer MEDICARE, OTHER ==
[~2018-12-21] VITALS: Ht 162.6 cm; Wt 63.1 kg
[2018-12-21 15:32] VITALS: BP 129/94
[2018-12-21] MEDS ORDERED: NAPR-832 (15:43)
[2018-12-21 17:10] LABS: INFLUENZA A AMPLIFICATION NEGATIVE (NEGATIVE); INFLUENZA B AMPLIFICATION NEGATIVE (NEGATIVE)
== END 2018-12-21 18:07 | disposition left against medical advice (07) ==
LOC: M ED 15:31
DX: R05 Cough (principal); I10 Essential (primary) hypertension; F32.9 Major depressive disorder, single episode, unspecified; K21.9 Gastro-esophageal reflux disease without esophagitis; Z88.2 Allergy status to sulfonamides; Z88.8 Allergy status to other drugs, medicaments and biological substances; Z79.01 Long term (current) use of anticoagulants; Z79.899 Other long term (current) drug therapy

== ENCOUNTER 2019-01-01 10:56 | Emergency (ER) | payer MEDICARE, OTHER ==
[~2019-01-01] VITALS: Ht 160 cm; Wt 62.1 kg
[~2019-01-01 10:56] MED LIST changes: +NAPR-832
[2019-01-01] MEDS ORDERED: LOSA100T50 (11:35)
[2019-01-01 11:59] LABS: BASO # 0.1 10^3/uL (0.0-0.2); BASO % 0.5 % (0.0-1.0); EOS # 0.1 10^3/uL (0.0-0.5); EOS % 0.5 % (0.0-3.0); HEMATOCRIT 38.1 % (36.0-47.0); HEMOGLOBIN 12.8 g/dl (12.0-15.5); LYMPH # 1.2 10^3/uL (1.5-5.0); LYMPH % 11.5 % (24.0-44.0); MEAN CORPUSCULAR HEMOGLOBIN 29.4 pg (27.0-33.0); MEAN CORPUSCULAR HGB CONC 33.6 g/dl (32.0-36.5); MEAN CORPUSCULAR VOLUME 87.6 fl (80.0-96.0); MONO # 1.2 10^3/uL (0.0-0.8); MONO % 10.9 % (0.0-5.0); NEUTROPHILS # 8.1 10^3/uL (1.5-8.5); NEUTROPHILS % 76.3 % (36.0-66.0); PLATELET COUNT, AUTOMATED 235 10^3/uL (150-450); RED BLOOD COUNT 4.35 10^6/uL (4.00-5.40); WHITE BLOOD COUNT 10.5 10^3/uL (4.0-10.0)
[2019-01-01 12:20] LABS: INR 1.27; PROTHROMBIN TIME 15.7 SECONDS (11.8-14.0)
[2019-01-01 12:21] LABS: PARTIAL THROMBOPLASTIN TIME 84.9 SECONDS (25.0-38.4)
[2019-01-01 12:28] LABS: BLOOD UREA NITROGEN 18 MG/DL (7-18); CALCIUM LEVEL 9.8 MG/DL (8.8-10.2); CARBON DIOXIDE LEVEL 25 MEQ/L (21-32); CHLORIDE LEVEL 108 MEQ/L (98-107); CK-MB VALUE MASS < 1.0 NG/ML (<3.6); CPK CREATINE PHOSPHOKINASE 103 U/L (26-192); CREATININE FOR GFR 0.88 MG/DL (0.55-1.30); GLOMERULAR FILTRATION RATE > 60.0 (>32); GLUCOSE, FASTING 105 MG/DL (70-100); MB/CK RELATIVE INDEX 0.97 (< OR =4); POTASSIUM SERUM 4.4 MEQ/L (3.5-5.1); SODIUM LEVEL 140 MEQ/L (136-145); TROPONIN I < 0.02 NG/ML (< 0.10)
--- NOTE | 2019-01-01 12:41 | REP ---
CT brain: 01/01/2019. Indication: Head trauma. Comparison: 11/27/2018. Technique: Unenhanced axial CT images of the brain were obtained from skull base to vertex. Findings: Ventriculomegaly is stable. Absence of the septum pellucidum is again noted. There is no acute intracranial hemorrhage or acute cortical infarction. No acute calvarial fracture is detected. There is no shift of the midline structures. Intracranial atherosclerotic disease is again noted. A few patchy areas of cerebral white matter hypoattenuation are present most consistent with chronic small vessel disease. Impression: There is no acute intracranial process. Stable ventriculomegaly. Electronically Signed by Foreing Bang DO 01/01/2019 12:33 P
--- NOTE | 2019-01-01 12:48 | REP ---
Right femur: Four views. History: Injury in a fall. Findings: Four views of the right femur demonstrate osteoarthritis at the hip and the knee and diffuse osteopenia. No fracture or subluxation is seen. Impression: No fracture noted. Osteoarthritis. Electronically Signed by Chalino Crocker MD 01/01/2019 12:39 P
--- NOTE | 2019-01-01 12:49 | REP ---
Pelvis bilateral hips: Five views. History: Injury in a fall. Findings: Bony pelvic ring is intact. Comparison radiographs are from June 26, 2018. There is diffuse osteopenia. Osteoarthritis is seen in both hips, right greater than left. There is a new radiolucent line in the ischium consistent with a right days she will fracture. No left-sided pelvic fractures seen. No proximal femur or hip fracture is seen. Impression: Nondisplaced fracture of the right ischium. No hip fracture or other pelvic fracture seen. Electronically Signed by Chalino Crocker MD 01/01/2019 12:40 P
--- NOTE | 2019-01-01 12:50 | REP ---
Chest x-ray: Two views. History: Injury in a fall. Comparison chest x-ray: June 28, 2018. Findings: There is a moderate S-shaped thoracolumbar curvature. The thoracic aorta is tortuous. The heart is mildly to moderately enlarged. The lungs are well inflated and clear. The pleural angles are sharp. There is no evidence of pneumothorax or hemothorax. No fracture is visible. Impression: Moderate scoliosis. Cardiomegaly. Otherwise no acute disease. Electronically Signed by Chalino Crocker MD 01/01/2019 12:42 P
[2019-01-01] MEDS ORDERED: ROLLMIS8 XX (14:43)
[2019-01-01 14:55] VITALS: BP 140/72
--- NOTE | 2019-01-01 18:06 | ECGEPIP ---
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
== END 2019-01-01 14:58 | disposition home or self-care (01) ==
LOC: M ED 10:56
DX: S32.601A Unspecified fracture of right ischium, initial encounter for closed fracture (principal); S70.01XA Contusion of right hip, initial encounter; S30.0XXA Contusion of lower back and pelvis, initial encounter; W18.39XA Other fall on same level, initial encounter; Y92.018 Other place in single-family (private) house as the place of occurrence of the external cause; M41.9 Scoliosis, unspecified; G93.89 Other specified disorders of brain; I45.10 Unspecified right bundle-branch block; I10 Essential (primary) hypertension; K21.9 Gastro-esophageal reflux disease without esophagitis; I48.91 Unspecified atrial fibrillation; F33.9 Major depressive disorder, recurrent, unspecified; Z79.899 Other long term (current) drug therapy; Z79.01 Long term (current) use of anticoagulants; Z88.1 Allergy status to other antibiotic agents; Z88.2 Allergy status to sulfonamides; Z88.8 Allergy status to other drugs, medicaments and biological substances

== ENCOUNTER 2019-07-06 10:30 | Emergency (ER) | payer MEDICARE, OTHER ==
[~2019-07-06] VITALS: Ht 162.6 cm; Wt 63.3 kg
[~2019-07-06 10:30] MED LIST changes: +LOSA100T50; +ROLLMIS8 XX
[2019-07-06 11:24] VITALS: BP 140/89
--- NOTE | 2019-07-06 11:25 | REP ---
CT BRAIN WITHOUT CONTRAST: HISTORY: Injury in a fall. Patient on blood thinners. Comparison is made with CT studies of the brain, the most recent of which is from January 01, 2019. The most remote is dated February 19, 2014. CT FINDINGS: Again noted is stable moderate ventriculomegaly with dilation of the third and lateral ventricles unchanged from multiple comparison studies. There is no periventricular low density to suggest transependymal resorption. There is generalized volume loss. There is no evidence of intracranial hemorrhage. No extra-axial fluid collection is seen. No mass, infarct or midline shift is seen. No skull fracture is seen. No significant scalp hematoma is appreciated. Visualized paranasal sinuses are clear. IMPRESSION: Stable moderate ventriculomegaly. Generalized volume loss. Some vascular calcification. No acute intracranial abnormality. Electronically Signed by Chalino Crocker MD 07/06/2019 04:15 P
--- NOTE | 2019-07-06 11:28 | REP ---
CT study of the cervical spine without contrast: History: Injury in a fall. Patient on blood thinners. Loraine cervical spine CT study February 19, 2014. Technique: Helical scanning is acquired and overlapping 2 mm high resolution axial images were generated and reviewed at bone and soft tissue window settings. Coronal and sagittal multiplanar re-formations images are generated. CT findings: There is no evidence of cervical spine element fracture. No skull base fracture is seen. Cervical vertebral body heights are preserved. Alignment is normal. Facet joints are normally aligned bilaterally at each cervical level on multiplanar re-formations images. There is no evidence of intraspinal or paraspinal hematoma. No extra vertebral abnormality is seen. There is degenerative spondylosis change. There is fusion of the left facet joint at C2-C3 and the left facet joint at C4-C5 is fused as well. Degenerative disc disease most pronounced at C5-C6 and C6-C7. There is posterior osteophytic ridging at these levels. The C6-7 posterior osteophytic ridging is more pronounced than on the 2015 study. Impression: Degenerative spondylosis changes as above. Otherwise negative CT study of the cervical spine without contrast. No fracture seen. Electronically Signed by Chalino Crocker MD 07/06/2019 11:19 A
--- NOTE | 2019-07-10 20:01 | ED PDOC ---
Post-Departure Follow-Up [facility] faxed hubert report of ct head forfu Lucina Ybarra MD July 10, 2019 20:01
== END 2019-07-06 12:00 | disposition home or self-care (01) ==
LOC: M ED 10:30
DX: S00.93XA Contusion of unspecified part of head, initial encounter (principal); W19.XXXA Unspecified fall, initial encounter; Y92.098 Other place in other non-institutional residence as the place of occurrence of the external cause; Z99.89 Dependence on other enabling machines and devices; Z79.01 Long term (current) use of anticoagulants; Z88.8 Allergy status to other drugs, medicaments and biological substances; Z88.2 Allergy status to sulfonamides

== ENCOUNTER 2019-07-15 21:33 | Emergency (ER) | payer MEDICARE, OTHER ==
[~2019-07-15] VITALS: Ht 162.6 cm; Wt 59.1 kg
[~2019-07-15 21:33] MED LIST changes: -BUPR200T PO; +BUPR200T2 PO; +HYDR-3490 PO; -HYDR25TAB PO; +PANT40TA29 PO; -PANT40TA3 PO
[2019-07-15 22:10] LABS: HEMATOCRIT 37.2 % (36.0-47.0); HEMOGLOBIN 12.8 g/dl (12.0-15.5); MEAN CORPUSCULAR HEMOGLOBIN 30.3 pg (27.0-33.0); MEAN CORPUSCULAR HGB CONC 34.4 g/dl (32.0-36.5); MEAN CORPUSCULAR VOLUME 87.9 fl (80.0-96.0); PLATELET COUNT, AUTOMATED 288 10^3/uL (150-450); RED BLOOD COUNT 4.23 10^6/uL (4.00-5.40); WHITE BLOOD COUNT 12.1 10^3/uL (4.0-10.0)
[2019-07-15 22:21] LABS: INR 1.27; PROTHROMBIN TIME 15.6 SECONDS (11.8-14.0)
[2019-07-15 22:34] LABS: BLOOD UREA NITROGEN 26 MG/DL (7-18); CALCIUM LEVEL 9.1 MG/DL (8.8-10.2); CARBON DIOXIDE LEVEL 27 MEQ/L (21-32); CHLORIDE LEVEL 104 MEQ/L (98-107); CREATININE FOR GFR 0.81 MG/DL (0.55-1.30); GLOMERULAR FILTRATION RATE > 60.0 (>32); GLUCOSE, FASTING 146 MG/DL (70-100); POTASSIUM SERUM 3.8 MEQ/L (3.5-5.1); SODIUM LEVEL 137 MEQ/L (136-145)
--- NOTE | 2019-07-15 22:50 | REPVR ---
PROCEDURE INFORMATION: Exam: US Right Non-Vascular Joint or Other Extremity Structure, Limited Exam date and time: 07/15/2019 10:42 PM Age: 83 years old Clinical indication: Mass or lump; Upper leg; Right; Additional info: Hip/femur swelling/echymosis TECHNIQUE: Imaging protocol: Right US Non-Vascular Joint or Other Extremity Structure. Limited exam COMPARISON: CR Femur 01/01/2019 11:55 AM FINDINGS: Soft tissues: There is a hypoechoic complex mass in the proximal high hip region on the right measuring 9.3 x 3.7 x 7.5 cm. There are complex echoes demonstrated within the mass. Findings are compatible with a large hematoma considering recent history of trauma. IMPRESSION: Findings compatible with a large hematoma in the proximal thigh hip region on the right. Electronically signed by: Maurilio Jefferson On 07/15/2019 22:50:31 PM
[2019-07-15 23:15] VITALS: BP 165/99
--- NOTE | 2019-07-16 01:05 | REP ---
Clinical: Trauma. Fall. Technique: Frontal view of the pelvis with neutral and frog lateral views of the right hip. Findings: Moderate age-related arthritic changes of the pelvis and bilateral hips (right greater than left) noted. No acute fracture or dislocation is appreciated. Soft tissues overlying the proximal right humerus suggest underlying soft tissue swelling and hematoma. Impression: 1. No obvious acute fracture or dislocation involving the pelvis/right hip. 2. Soft tissue swelling over the proximal femur suggesting the possibility of underlying hematoma. Electronically Signed by Nikolas Means MD 07/16/2019 12:56 A
== END 2019-07-15 23:26 | disposition home or self-care (01) ==
LOC: M ED 21:33
DX: S70.01XA Contusion of right hip, initial encounter (principal); W18.39XA Other fall on same level, initial encounter; Y92.018 Other place in single-family (private) house as the place of occurrence of the external cause; I10 Essential (primary) hypertension; I48.91 Unspecified atrial fibrillation; Z79.899 Other long term (current) drug therapy; Z79.01 Long term (current) use of anticoagulants; Z88.1 Allergy status to other antibiotic agents; Z88.2 Allergy status to sulfonamides; Z88.8 Allergy status to other drugs, medicaments and biological substances

== ENCOUNTER → 2019-08-30 | Outpatient (REF) | payer MEDICARE, OTHER ==
[~2019-08-30] MED LIST changes: +BUPR200T PO; -BUPR200T2 PO; -HYDR-3490 PO; +HYDR25TAB PO; -PANT40TA29 PO; +PANT40TA3 PO
[2019-08-30 19:45] LABS: HEMATOCRIT 42.1 % (36.0-47.0); HEMOGLOBIN 13.9 g/dl (12.0-15.5); MEAN CORPUSCULAR HEMOGLOBIN 30.8 pg (27.0-33.0); MEAN CORPUSCULAR VOLUME 93.3 fl (80.0-96.0); PLATELET COUNT, AUTOMATED 271 10^3/uL (150-450); RED BLOOD COUNT 4.51 10^6/uL (4.00-5.40); WHITE BLOOD COUNT 5.7 10^3/uL (4.0-10.0)
[2019-08-30 20:22] LABS: BLOOD UREA NITROGEN 25 MG/DL (7-18); CALCIUM LEVEL 9.4 MG/DL (8.8-10.2); CARBON DIOXIDE LEVEL 29 MEQ/L (21-32); CHLORIDE LEVEL 106 MEQ/L (98-107); CHOLESTEROL LEVEL 199 MG/DL (<200); CHOLESTEROL RISK RATIO 2.689 (<5); CREATININE FOR GFR 0.89 MG/DL (0.55-1.30); GLOMERULAR FILTRATION RATE > 60.0 (>32); GLUCOSE, FASTING 101 MG/DL (70-100); HDL CHOLESTEROL 74 MG/DL (>40); LDL CHOLESTEROL 104 MG/DL (<100); NON-HDL-C 125 MG/DL; POTASSIUM SERUM 4.4 MEQ/L (3.5-5.1); SODIUM LEVEL 143 MEQ/L (136-145); TOTAL 25(OH) VITAMIN D 46.4 NG/ML (30.0-100.0); TRIGLYCERIDES LEVEL 106 MG/DL (<150); VITAMIN B12 LEVEL 322 PG/ML (247-911)
== END ==
LOC: M SFHCPLAZ 15:14
PROVIDERS: ATTEND Family Medicine
DX: I12.9 Hypertensive chronic kidney disease with stage 1 through stage 4 chronic kidney disease, or unspecified chronic kidney disease (principal); E78.2 Mixed hyperlipidemia; E83.42 Hypomagnesemia; N18.3 Chronic kidney disease, stage 3 (moderate); R41.3 Other amnesia

== ENCOUNTER → 2019-12-11 | Outpatient (REF) | payer MEDICARE, OTHER ==
[~2019-12-11] MED LIST changes: +PANT40TA29 PO; -PANT40TA3 PO
[2019-12-11 17:50] LABS: BLOOD UREA NITROGEN 25 MG/DL (7-18); CALCIUM LEVEL 9.6 MG/DL (8.8-10.2); CARBON DIOXIDE LEVEL 31 MEQ/L (21-32); CHLORIDE LEVEL 107 MEQ/L (98-107); CREATININE FOR GFR 0.88 MG/DL (0.55-1.30); GLOMERULAR FILTRATION RATE > 60.0 (>32); GLUCOSE, FASTING 89 MG/DL (70-100); POTASSIUM SERUM 4.2 MEQ/L (3.5-5.1); SODIUM LEVEL 143 MEQ/L (136-145)
== END ==
LOC: M SFHCPLAZ 15:20
PROVIDERS: ATTEND Family Medicine
DX: N18.30 Chronic kidney disease, stage 3 unspecified (principal); Z23 Encounter for immunization
CPT/HCPCS: 36415; 80048; 90682; G0008; G0463

== ENCOUNTER → 2020-06-04 | Outpatient (REF) | payer MEDICARE, OTHER ==
[~2020-06-04] MED LIST changes: -BUPR200T PO; +BUPR200T2 PO; +HYDR-3490 PO; -HYDR25TAB PO
[2020-06-04 14:22] LABS: CALCIUM LEVEL 9.8 MG/DL (8.8-10.2); GLOMERULAR FILTRATION RATE 56.2 (>32); POTASSIUM SERUM 4.5 MEQ/L (3.5-5.1)
== END ==
LOC: M SFHCPLAZ 12:04
PROVIDERS: ATTEND Family Medicine
DX: I12.9 Hypertensive chronic kidney disease with stage 1 through stage 4 chronic kidney disease, or unspecified chronic kidney disease (principal); N18.31 Chronic kidney disease, stage 3a
CPT/HCPCS: 36415; 80048; G0463

== ENCOUNTER 2020-08-01 14:45 | Emergency (ER) | payer MEDICARE, OTHER ==
[~2020-08-01] VITALS: Ht 152.4 cm; Wt 58.0 kg
[2020-08-01 17:50] VITALS: BP 133/68
== END 2020-08-01 17:50 | disposition left against medical advice (07) ==
LOC: M ED 14:45
DX: H53.2 Diplopia (principal); I10 Essential (primary) hypertension; I48.91 Unspecified atrial fibrillation; F33.9 Major depressive disorder, recurrent, unspecified; Z79.899 Other long term (current) drug therapy; Z79.01 Long term (current) use of anticoagulants; Z88.1 Allergy status to other antibiotic agents; Z88.2 Allergy status to sulfonamides; Z88.8 Allergy status to other drugs, medicaments and biological substances

== ENCOUNTER 2020-08-04 12:31 | Emergency (ER) | payer MEDICARE, OTHER ==
[~2020-08-04] VITALS: Ht 160 cm; Wt 51.6 kg
--- NOTE | 2020-08-04 13:08 | REP ---
INDICATION: r/o cva. COMPARISON: None. TECHNIQUE: 4.5 mm contiguous transaxial sections were obtained from the skull base to the cerebral convexities with thin cuts through the posterior fossa without the administration of intravenous contrast. FINDINGS: There is rather marked ventriculomegaly status quo. There is stable sulcal prominence. There is no shift of midline structures. There is no evidence of an acute intracranial hemorrhagic or non hemorrhagic event. There are no extra-axial fluid collections. The skull and skull base are unchanged. The posterior fossa is unchanged. The deep cerebral white matter is unchanged. The imaged paranasal sinuses and mastoid air cells are stable. IMPRESSION: Stable appearing chronic changes. No evidence of acute intracranial pathology. <Electronically signed by Jean Marcelo > 08/04/20 [id number]
--- NOTE | 2020-08-04 16:51 | REP ---
INDICATION: CVA. COMPARISON: 01/01/2019 TECHNIQUE: Portable FINDINGS: The technique utilized in obtaining the radiograph has magnified the cardiac silhouette and accentuated the interstitial markings. The cardiomediastinal silhouette is unchanged. There is cardiomegaly accentuated by technique. There is no change in lung pastrana. No acute patchy parenchymal opacities or pleural effusions have developed. There is no significant change in appearance of the osseous structures. IMPRESSION: Cardiomegaly status quo without evidence of acute cardiopulmonary disease. <Electronically signed by Jaen Marcelo > 08/04/20 [id number]
[2020-08-04] MEDS ORDERED: ISOVUE-370 76% 100ML VIAL As Ordered ONE (16:53)
[2020-08-04 17:00] LABS: BASO % 0.7 % (0.0-1.0); EOS # 0.1 10^3/uL (0.0-0.5); EOS % 1.7 % (0.0-3.0); HEMATOCRIT 43.4 % (36.0-47.0); HEMOGLOBIN 14.3 g/dl (12.0-15.5); LYMPH # 1.8 10^3/uL (1.5-5.0); LYMPH % 29.9 % (24.0-44.0); MEAN CORPUSCULAR HEMOGLOBIN 30.3 pg (27.0-33.0); MEAN CORPUSCULAR HGB CONC 32.9 g/dl (32.0-36.5); MEAN CORPUSCULAR VOLUME 91.9 fl (80.0-96.0); MONO # 0.5 10^3/uL (0.0-0.8); MONO % 8.4 % (2.0-8.0); NEUTROPHILS # 3.5 10^3/uL (1.5-8.5); NEUTROPHILS % 59.1 % (36.0-66.0); PLATELET COUNT, AUTOMATED 278 10^3/uL (150-450); RED BLOOD COUNT 4.72 10^6/uL (4.00-5.40); WHITE BLOOD COUNT 5.9 10^3/uL (4.0-10.0)
[2020-08-04 17:14] LABS: INR 1.03; PROTHROMBIN TIME 13.7 SECONDS (12.5-14.3)
[2020-08-04 17:16] LABS: PARTIAL THROMBOPLASTIN TIME 67.5 SECONDS (24.2-38.5)
[2020-08-04 17:27] LABS: CPK CREATINE PHOSPHOKINASE 83 U/L (26-192); MAGNESIUM LEVEL 2.3 MG/DL (1.8-2.4); TROPONIN I < 0.02 NG/ML (< 0.10)
--- NOTE | 2020-08-04 17:30 | REPVR ---
PROCEDURE INFORMATION: Exam: CT Angiography Neck With Contrast Exam date and time: 08/04/2020 5:01 PM Age: 85 years old Clinical indication: Visual disturbance; Additional info: CVA - nursing interventions must not delay CT TECHNIQUE: Imaging protocol: Computed tomography angiography of the neck with contrast. 3D rendering (Not supervised by radiologist): MIP and/or 3D reconstructed images were created by the technologist. Radiation optimization: All CT scans at this facility use at least one of these dose optimization techniques: automated exposure control; mA and/or kV adjustment per patient size (includes targeted exams where dose is matched to clinical indication); or iterative reconstruction. Contrast material: ISOVUE 370; Contrast volume: 100 ml; Contrast route: INTRAVENOUS (IV); COMPARISON: CT Head without contrast 08/04/2020 12:46 PM FINDINGS: Right common carotid artery: No stenosis. No dissection or occlusion. Right internal carotid artery: There is a questionable dissection noted involving the proximal right internal carotid artery image 401/52 and 53. This could be laminar flow artifact. Right external carotid artery: No occlusion or stenosis of the origin. Left common carotid artery: No stenosis. No dissection or occlusion. Left internal carotid artery: No stenosis of the extracranial segment. No dissection or occlusion. Left external carotid artery: No occlusion or stenosis of the origin. Right vertebral artery: No stenosis. No dissection or occlusion. Left vertebral artery: No stenosis. No dissection or occlusion. Soft tissues: Normal. No significant soft tissue swelling. Bones/joints: No acute fracture. Other findings: The origin of the great vessels are not included on this study. IMPRESSION: No stenosis or occlusion however, I cannot exclude a proximal right internal carotid artery dissection. If clinically indicated consider contrast enhanced MRI as well as pre contrast T1 weighted axial imaging for further evaluation. REFERENCES: NASCET CRITERIA. The degree of internal carotid artery stenosis is based on NASCET criteria. Normal is no stenosis. Mild is less than 50% stenosis. Moderate is 50-69% stenosis. Severe is 70% to 99% stenosis. Total occlusion is no detectable patent lumen. Electronically signed by: Butch Mitchell On 08/04/2020 17:29:40 PM
--- NOTE | 2020-08-04 17:32 | REPVR ---
PROCEDURE INFORMATION: Exam: CT Angiography Head With Contrast, Arteriography Exam date and time: 08/04/2020 5:01 PM Age: 85 years old Clinical indication: Visual disturbance; Type not specified; Additional info: CVA - nursing interventions must not delay CT TECHNIQUE: Imaging protocol: Computed tomography angiography of the head with contrast. Exam focused on the arteries. 3D rendering (Not supervised by radiologist): MIP and/or 3D reconstructed images were created by the technologist. Radiation optimization: All CT scans at this facility use at least one of these dose optimization techniques: automated exposure control; mA and/or kV adjustment per patient size (includes targeted exams where dose is matched to clinical indication); or iterative reconstruction. Contrast material: ISOVUE 370; Contrast volume: 100 ml; Contrast route: INTRAVENOUS (IV); COMPARISON: CT Head without contrast 08/04/2020 12:46 PM FINDINGS: ANTERIOR CIRCULATION: Right internal carotid artery: Unremarkable. Intracranial segment is patent with no significant stenosis. No aneurysm. Right middle cerebral artery: Unremarkable. No occlusion or significant stenosis. No aneurysm. Right anterior cerebral artery: Unremarkable. No occlusion or significant stenosis. No aneurysm. Left internal carotid artery: Unremarkable. Intracranial segment is patent with no significant stenosis. No aneurysm. Left middle cerebral artery: Unremarkable. No occlusion or significant stenosis. No aneurysm. Left anterior cerebral artery: Unremarkable. No occlusion or significant stenosis. No aneurysm. POSTERIOR CIRCULATION: Right vertebral artery: Unremarkable. No occlusion or significant stenosis. No aneurysm. Left vertebral artery: Unremarkable. No occlusion or significant stenosis. No aneurysm. Basilar artery: Unremarkable. No occlusion or significant stenosis. No aneurysm. Right posterior cerebral artery: Unremarkable. No occlusion or significant stenosis. No aneurysm. Left posterior cerebral artery: Unremarkable. No occlusion or significant stenosis. No aneurysm. Findings in the CT head were discussed in a separate dictation. The ventricles are very dilated out of proportion to the sulci raising the question pressure hydrocephalus. Bones/joints: Unremarkable. No acute fracture. Soft tissues: Unremarkable. Paranasal sinuses: Small amount of fluid is seen in the left sphenoid sinus. IMPRESSION: No large vessel stenosis or occlusion. Electronically signed by: Butch Mitchell On 08/04/2020 17:31:54 PM
[2020-08-04] MEDS ORDERED: NS 1,000 ML IV ONE (18:55)
--- NOTE | 2020-08-04 20:38 | ECGEPIP ---
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
--- NOTE | 2020-08-04 21:29 | REPVR ---
PROCEDURE INFORMATION: Exam: MR Head Without Contrast Exam date and time: 08/04/2020 7:59 PM Age: 85 years old Clinical indication: Visual disturbance; Patient HX: Diplopia, abn cta neck; Additional info: Diploplia TECHNIQUE: Imaging protocol: MR of the head without contrast. COMPARISON: CT Head without contrast 08/04/2020 12:46 PM FINDINGS: Examination is motion limited. Major vascular flow voids at the skull base are preserved. No extra-axial fluid collection. Stable ventriculomegaly. No midline shift or intracranial mass effect. Nonspecific white matter gliosis, probable chronic microvascular ischemia. There is age-related volume loss. No cerebral edema or pathologic susceptibility. No diffusion restriction. Visualized paranasal sinuses and mastoid air cells are clear. IMPRESSION: 1. No acute intracranial abnormality. 2. Stable ventriculomegaly. Electronically signed by: Nabil Samuel On 08/04/2020 21:29:02 PM
--- NOTE | 2020-08-04 21:32 | REPVR ---
PROCEDURE INFORMATION: Exam: MRA Neck Without Contrast Exam date and time: 08/04/2020 7:59 PM Age: 85 years old Clinical indication: Abnormal findings; Other abnormal imaging; Patient HX: Abnormal cta neck TECHNIQUE: Imaging protocol: Magnetic resonance angiography of the neck without contrast. COMPARISON: CT ANGIO NECK 08/04/2020 4:59 PM FINDINGS: Examination is motion limited. No significant stenosis or occlusion involving the bilateral common carotid arteries. No significant stenosis or occlusion involving the internal carotid arteries. No definite dissection is visualized. Left vertebral artery is dominant. No significant stenosis or occlusion involving the vertebral arteries. IMPRESSION: Motion limited examination without convincing evidence of dissection. REFERENCES: NASCET CRITERIA. The degree of internal carotid artery stenosis is based on NASCET criteria. Normal is no stenosis. Mild is less than 50% stenosis. Moderate is 50-69% stenosis. Severe is 70% to 99% stenosis. Total occlusion is no detectable patent lumen. Electronically signed by: Nabil Samuel On 08/04/2020 21:31:51 PM
[2020-08-04 22:15] VITALS: BP 177/113
[2020-08-04] MEDS ORDERED: LOSARTAN 50MG TABLET PO ONE (22:15)
[2020-08-04] MEDS ORDERED: diltiaZEM **CD** 180 MG CAP PO ONE (22:15)
[2020-08-04 23:44] VITALS: BP 153/97
[2020-08-05 00:25] LABS: RSV AMPLIFICATION NEGATIVE (NEGATIVE)
== END 2020-08-04 23:48 | disposition short-term general hospital (02) ==
LOC: M ED 12:31
DX: H53.2 Diplopia (principal); R32 Unspecified urinary incontinence; R26.9 Unspecified abnormalities of gait and mobility; G91.9 Hydrocephalus, unspecified; I10 Essential (primary) hypertension; F33.9 Major depressive disorder, recurrent, unspecified; I48.91 Unspecified atrial fibrillation; Z88.1 Allergy status to other antibiotic agents; Z88.2 Allergy status to sulfonamides; Z88.8 Allergy status to other drugs, medicaments and biological substances; Z79.899 Other long term (current) drug therapy; Z79.01 Long term (current) use of anticoagulants
CPT/HCPCS: 70450; 70496; 70498; 70547; 70551; 71045; 80047; 82550; 82553; 83735; 84484; 85025; 85610; 85730; 87631; 93005; 93041; 94760; 96360; 96361; 99285; Q9967

== ENCOUNTER 2020-09-30 17:49 | Inpatient (IN) | payer MEDICARE, OTHER ==
[~2020-09-30] VITALS: Ht 152.4 cm; Wt 55.9 kg
[2020-09-30] MEDS ORDERED: MORPHINE 2 MG/ML 1ML VIAL (J2270) IV ONE (18:30)
[2020-09-30 19:23] LABS: BASO # 0.1 10^3/uL (0.0-0.2); BASO % 0.5 % (0.0-1.0); EOS # 0.1 10^3/uL (0.0-0.5); EOS % 0.7 % (0.0-3.0); HEMATOCRIT 32.2 % (36.0-47.0); HEMOGLOBIN 10.9 g/dl (12.0-15.5); LYMPH % 9.6 % (24.0-44.0); MEAN CORPUSCULAR HEMOGLOBIN 31.1 pg (27.0-33.0); MEAN CORPUSCULAR HGB CONC 33.9 g/dl (32.0-36.5); MEAN CORPUSCULAR VOLUME 91.7 fl (80.0-96.0); MONO # 0.8 10^3/uL (0.0-0.8); MONO % 7.7 % (2.0-8.0); NEUTROPHILS # 8.7 10^3/uL (1.5-8.5); NEUTROPHILS % 81.3 % (36.0-66.0); PLATELET COUNT, AUTOMATED 238 10^3/uL (150-450); RED BLOOD COUNT 3.51 10^6/uL (4.00-5.40); WHITE BLOOD COUNT 10.7 10^3/uL (4.0-10.0)
[2020-09-30 19:41] LABS: INR 1.14
[2020-09-30 19:42] LABS: PARTIAL THROMBOPLASTIN TIME 48.5 SECONDS (25.9-37.0)
[2020-09-30] MEDS ORDERED: ONDANSETRON 4MG/2ML VIAL As Ordered ONE (20:22)
[2020-09-30] MEDS ORDERED: ONDANSETRON 4MG/2ML VIAL IV ONE (20:25)
[2020-09-30] MEDS ORDERED: NS 500 ML IV ONE (20:25)
[2020-09-30] MEDS ORDERED: ISOVUE-370 76% 100ML VIAL As Ordered ONE (20:33)
--- NOTE | 2020-09-30 20:55 | REPVR ---
PROCEDURE INFORMATION: Exam: CT Head Without Contrast Exam date and time: 09/30/2020 8:39 PM Age: 85 years old Clinical indication: Injury or trauma; Fall; Blunt trauma (contusions or hematomas); Additional info: Head injury; Fall TECHNIQUE: Imaging protocol: Computed tomography of the head without contrast. Radiation optimization: All CT scans at this facility use at least one of these dose optimization techniques: automated exposure control; mA and/or kV adjustment per patient size (includes targeted exams where dose is matched to clinical indication); or iterative reconstruction. COMPARISON: MRI-Brain without Contrast 08/04/2020 8:13 PM FINDINGS: Tubes, catheters and devices: Ventriculostomy catheter demonstrated in the right lateral ventricle. Brain: There is moderate diffuse cerebellar atrophy. Moderate age related parenchymal atrophy. No acute hemorrhage. Cerebral ventricles: There is disproportionate enlargement of the ventricles relative to the cortical sulci, findings suggestive of normal pressure hydrocephalus. Paranasal sinuses: Visualized sinuses are unremarkable. No fluid levels. Mastoid air cells: Visualized mastoid air cells are well aerated. Vasculature: Atherosclerotic calcifications are demonstrated in the intracranial carotid arteries bilaterally as well as in the vertebral basilar system. Bones/joints: Unremarkable. No acute fracture. Soft tissues: Unremarkable. IMPRESSION: 1. There is moderate diffuse cerebellar atrophy. 2. There is disproportionate enlargement of the ventricles relative to the cortical sulci, findings suggestive of normal pressure hydrocephalus. 3. Moderate age related parenchymal atrophy. 4. No acute intracranial findings. Electronically signed by: Maurilio Jefferson On 09/30/2020 20:54:49 PM
--- NOTE | 2020-09-30 21:09 | REPVR ---
PROCEDURE INFORMATION: Exam: CTA Right Lower Extremity With Contrast Exam date and time: 09/30/2020 8:39 PM Age: 85 years old Clinical indication: Injury or trauma; Fall; Bleeding/hemorrhage; Lower leg; Right; Additional info: Fall injury; Right calf swelling; R/O hematoma/active bleed TECHNIQUE: Imaging protocol: CTA images of the Right lower extremity with intravenous contrast using CT angiography protocol. 3D rendering (Not supervised by radiologist): MIP and/or 3D reconstructed images were created by the technologist. Radiation optimization: All CT scans at this facility use at least one of these dose optimization techniques: automated exposure control; mA and/or kV adjustment per patient size (includes targeted exams where dose is matched to clinical indication); or iterative reconstruction. Contrast material: ISOVUE 370; Contrast volume: 100 ml; Contrast route: INTRAVENOUS (IV); COMPARISON: US EXTREMITY NON VASCUL LIMITED 07/15/2019 10:22 PM FINDINGS: Right femoral/popliteal arteries: No occlusion or significant stenosis. Right infrapopliteal arteries: No occlusion or significant stenosis. Other arteries: Normal appearance of the visualized distal superficial femoral artery, popliteal artery, and infrapopliteal arteries which can be traced to the level of the ankle with exception of the dorsalis pedis artery which is not clearly visualized likely technical. Bones/joints: Tricompartment degenerative changes in the knee. Calcified menisci. No acute fracture. No dislocation. Small knee joint effusion. Soft tissues: Edema demonstrated in the calf and ankle. Large mixed density predominantly hyperdense fusiform shaped mass in the medial aspect of the calf measuring 5.3 x 7.4 x 22 cm. Findings consistent with a large hematoma either intramuscular or located adjacent to the medial head of the gastrocnemius muscle. There is secondary compression on the adjacent musculature. IMPRESSION: 1. Large calf hematoma as described above. 2. No vascular compromise. Nonvisualized dorsalis pedis artery likely related to technical factors. 3. Marked edema in the calf and ankle. Electronically signed by: Maurilio Jefferson On 09/30/2020 21:08:53 PM
[2020-09-30 22:33] LABS: RSV AMPLIFICATION NEGATIVE (NEGATIVE)
[2020-10-01] MEDS ORDERED: ELIQ2.5T PO (01:15)
[2020-10-01] MEDS ORDERED: DILT180C28 PO (01:15)
[2020-10-01] MEDS ORDERED: LOSA100T50 PO (01:15)
[2020-10-01] MEDS ORDERED: VITA200044 PO (01:15)
[2020-10-01] MEDS ORDERED: HYDR-3490 PO (01:15)
[2020-10-01] MEDS ORDERED: COLA100C5 PO (01:15)
[2020-10-01] MEDS ORDERED: HOME MED LIST COMPLETE! XX SCH (01:20)
[2020-10-01 03:15] VITALS: BP 124/80
[2020-10-01] MEDS ORDERED: PERCOCET 5MG/325MG TAB PO PRN ×2 (04:30→05:40)
[2020-10-01] MEDS ORDERED: DOCUSATE SODIUM 100MG CAPSULE PO PRN (04:30)
--- NOTE | 2020-10-01 04:46 | HPEPDOC ---
[facility] Medical History & Physical Date of Admission Oct 01, 2020 Date of Service: Oct 01, 2020 Primary Care Physician: LAVINIA GIBSON MD Attending Physician: JUSTINE MAGDALENO MD History and Physical TIME OF SERVICE: 244AM CHIEF COMPLAINT: fall HISTORY OF PRESENT ILLNESS: Ms.Fay patel 85 yr old F had a fall, while walking without her walker, and hit the side of her head on Tuesday. She denies noticing any trauma her legs on Tuesday. On Tuesday morning she developed severe right calf pain which she rated as 11/10 in severity that made it difficult for her to walk. The pain improved after she was given morphine. Per d/w imaging studies identified a hematoma. recommended consulting , who has already evaluated the patient, and recommended conservative measures. will also see the patient tomorrow. REVIEW OF SYSTEMS: 10-point review of systems negative except as listed in HPI PAST MEDICAL/ SURGICAL HISTORY: Longstanding persistent A Fib, essential HTN, Congenital aqueduct stenosis causing NPH she had a ventricular shunt placed 2 w eeks ago, Lewy body Dementia (per daughter confirmed with biopsy? Has hx of sun downing), OA, moderate pulmonary HTN (PASP 55%), severe bi -atrial enlargement, osteopenia (she was on bisphosphonates for about 6 yrs), Vitamin D deficiency, DLP, diverticulosis, resection of tubulovillous adenoma, partial hysterectomy, cholecystectomy, SOCIAL HISTORY: she doesnt smoke, she drinks alcohol socially, she doesnt use recreational drugs FAMILY HISTORY: Daughter HTN / Mother - colon cancer, HTN / Brother - colon cancer / Sister - osteoporosis ALLERGIES: Please see below. HOME MEDICATIONS: Please see below. PHYSICAL EXAMINATION: Vital Signs Date Time Temp Pulse Resp B/P (MAP) Pulse Ox O2 Delivery O2 Flow Rate FiO2 09/30/20 17:56 121/82 (95) 09/30/20 17:57 97.5 77 18 98 Room Air GENERAL APPEARANCE: well-nourished and developed/ NAD HEENT: EOMI /MM pink but dry CARDIOVASCULAR: RRR/NMRG LUNGS: CTAB on RA MUSCULOSKELETAL: AMBREEN in upper extremities / RLE wrapped in dressings INTEGUMENT: toes cool to touch but still pink in color with good capillary refill NEUROLOGICAL: speech not dysarthric PSYCHIATRIC: A&O / able to answer and follow simple commands LABORATORY DATA: Immature Granulocyte % (Auto) 0.2, Neutrophils (%) (Auto) 81.3H, Lymphocytes (%) (Auto) 9.6L, Monocytes (%) (Auto) 7.7, Eosinophils (%) (Auto) 0.7, Basophils (%) (Auto) 0.5, Neutrophils # (Auto) 8.7H, Lymphocytes # (Auto) 1.0L, Monocytes # (Auto) 0.8, Eosinophils # (Auto) 0.1, Basophils # (Auto) 0.1, Nucleated Red Blood Cells % (auto) 0.0, Prothrombin Time 15.0H, Prothromb Time International Ratio 1.14, Activated Partial Thromboplast Time 48.5H 09/30/20 19:13: POC Glucose (Misc Panel) 133H, POC Sodium (Misc Panel) 144, POC Potassium (Misc Panel) 4.0, POC Chloride (Misc Panel) 104, POC Total CO2 (Misc Panel) 24.0, POC Blood Urea Nitrogen (Misc Panel 29H, POC Ionized Calcium (Misc Panel) 4.9, POC Creatinine (Misc Panel) 1.0, POC Hematocrit (Misc Panel) 30.0L 09/30/20 21:41: Coronavirus (COVID-19)(PCR) NEGATIVE, Influenza Type A (RT-PCR) NEGATIVE, Influenza Type B (RT-PCR) NEGATIVE, Respiratory Syncytial Virus (PCR) NEGATIVE IMAGING: CT head IMPRESSION: 1. There is moderate diffuse cerebellar atrophy. 2. There is disproportionate enlargement of the ventricles relative to the cortical sulci, findings suggestive of normal pressure hydrocephalus. 3. Moderate age related parenchymal atrophy. 4. No acute intracranial findings. CTA lower extremity FINDINGS: Right femoral/popliteal arteries: No occlusion or significant stenosis. Right infrapopliteal arteries: No occlusion or significant stenosisSmall knee joint effusion. Soft tissues: Edema demonstrated in the calf and ankle. Large mixed density predominantly hyperdense fusiform shaped mass in the medial aspect of the calf measuring 5.3 x 7.4 x 22 cm. Findings consistent with a large hematoma either intramuscular or located adjacent to the medial head of the gastrocnemius muscle. There is secondary compression on the adjacent musculature. MICROBIOLOGY: Respiratory panel is neg ASSESSMENT: is an 85 yr old w a history of A Fib, HTN, Congenital aqueduct stenosis causing NPH with placement of ventricular shunt, Lewy body Dementia, OA, pulmonary HTN. severe bi -atrial enlargement, DLP & osteopenia who is admitted for evaluation of a large right calf hematoma. PLAN: 1 Right Calf Hematoma Plan: admit to medical floor / f/u serial Hg, lactic acid and CK / f/u w Drs. Montes De Oca & Mireya in the morning / hold DOAC / elevate leg 2 Acute Anemia Plan: f/u serial Hg & Iron studies 3 Mechanical fall / Congenital aqueduct stenosis causing NPH The fall was 2/2 ambulating w/o her walker Plan: bed rest 4 Longstanding persistent A Fib 5 Resistant HTN Plan: diltiazem, HTCZ, losartan 6 Lewy body Dementia Plan: will place an order for a sitter if she starts sun downing 7 Moderate pulmonary HTN/ severe bi -atrial enlargement Euvolemic DVT px n/a bc of anemia and hematoma Dispo: home after at least 2 midnights stay Home Medications Scheduled Bupropion Hcl (Bupropion HCl Sr) 200 Mg Tab, 200 MG PO BID Cholecalciferol (Vitamin D3) (Vitamin D3) 50 Mcg Capsule, 50 MCG PO DAILY Diltiazem HCl (Dilt-Xr) 180 Mg Cap.er.deg, 180 MG PO BID Hydrochlorothiazide (Hydrochlorothiazide) 25 Mg Tablet, 25 MG PO DAILY Losartan Potassium (Losartan Potassium) 100 Mg Tablet, 100 MG PO DAILY Magnesium Chloride (Mag64) 64 Mg Tabcr, 64 MG PO BID Scheduled PRN Docusate Sodium (Colace) 100 Mg Capsule, 100 MG PO DAILY PRN for CONSTIPATION Loratadine (Loratadine) 10 Mg Tablet, 10 MG PO DAILY PRN for ALLERGIES Allergies Coded Allergies: WESLEY Inhibitors (Verified Allergy, Severe, angioedema, 06/25/18) Sulfa (Sulfonamide Antibiotics) (Verified Allergy, Intermediate, 06/25/18) amlodipine (Verified Adverse Reaction, Intermediate, hot flashes, 06/25/18) ARB-Angiotensin Receptor Antagonist (Verified Adverse Reaction, Mild, fatigue, 06/25/18) atenolol (Verified Adverse Reaction, Mild, cough, 06/25/18) A-FIB/CHADSVASC A-FIB History Current/History of A-Fib/PAF?: Yes Current PO Anticoag Therapy: No Treatment Treatment ordered: Apixaban Reason Anticoagulant not given: Current bleeding Other reason anticoagulant not: calf hematoma JUSTINE MAGDALENO MD Oct 01, 2020 04:45
[2020-10-01 04:58] LABS: HEMATOCRIT 29.6 % (36.0-47.0); MEAN CORPUSCULAR HEMOGLOBIN 31.3 pg (27.0-33.0); MEAN CORPUSCULAR HGB CONC 33.8 g/dl (32.0-36.5); MEAN CORPUSCULAR VOLUME 92.5 fl (80.0-96.0); PLATELET COUNT, AUTOMATED 208 10^3/uL (150-450); WHITE BLOOD COUNT 7.9 10^3/uL (4.0-10.0)
[2020-10-01 05:28] LABS: BLOOD UREA NITROGEN 22 MG/DL (7-18); CALCIUM LEVEL 8.2 MG/DL (8.8-10.2); CARBON DIOXIDE LEVEL 27 MEQ/L (21-32); CHLORIDE LEVEL 111 MEQ/L (98-107); CPK CREATINE PHOSPHOKINASE 49 U/L (26-192); FERRITIN 48 NG/ML (8-252); GLOMERULAR FILTRATION RATE > 60.0 (>32); GLUCOSE, FASTING 98 MG/DL (70-100); IRON (FE) 68 UG/DL (50-170); PERCENT SATURATION 23.1 % (13.2-45.0); POTASSIUM SERUM 3.4 MEQ/L (3.5-5.1); SODIUM LEVEL 144 MEQ/L (136-145); TOTAL IRON BINDING CAPACITY 295 UG/DL (250-450)
[2020-10-01] MEDS ORDERED: ACETAMINOPHEN 650MG ER TAB (TYLENOL ARTHRITIS) PO SCH (05:30)
[2020-10-01 09:00] VITALS: BP 111/73
[2020-10-01] MEDS: LOSARTAN 50MG TABLET PO SCH (09:00)
--- NOTE | 2020-10-01 09:05 | CR.PDOC ---
General Date of Consultation: Sep 30, 2020 Referring Provider: BONG CIFUENTES Consultation REASON FOR CONSULTATION/CHIEF COMPLAINT: Right calf hematoma HISTORY OF PRESENT ILLNESS: 85 year old woman who is on eliquis. 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 Now had a fall and twisted her ankle a few days ago. Progressive swelling to the right calf prompted her to come to the ED. Vas ALLERGIES: Please see below. HOME MEDICATIONS: Please see below. Relevant PAST MEDICAL HISTORY: 1. Normal Pressure hydrocephalus. AFib on eliquis PAST SURGICAL HISTORY: 1. Recent RAIL [employer] shunt revision/placement FAMILY HISTORY: Non contributary SOCIAL HISTORY: Ambulatory at baseline, non smoker. non alcoholic. Other relevant social factors:Has good family support at home. REVIEW OF SYSTEMS: All twelve systems reviewed were negative except as stated in HPI. She specifically denies numbness or tenderness in her foot. No evidence of calf compartment syndrome PHYSICAL EXAMINATION: VITAL SIGNS: Please see below. GENERAL APPEARANCE: awake, seems comfortable. resting in stertcher when I Saw her with her daughter next to her. EXTREMITIES: Right calf swollen with eccymosis but not tense, no cords are palpated. Calf is tender on compression. Left calf soft and with decreased skin turgor. 2+ edema in calf with no edema in right foot. NEUROLOGICAL: Intact grossly, no sensory deficit in webspace. SKIN: Aside from some bruising there is no open wounds or breakdown of skin. LABORATORY DATA: Please see below. ASSESSMENT/PLAN: 1. Right calf hematoma after traumatic fall/twisted ankle on blood thinners. CTA reviewed and I Saw the patient myself and did the exam. The wesley wrap which was placed has already improved the symptoms significantly. The patients calf is softer now than before. I think she can be observed overnight on eliquis and discharged tomorrow if there is no further expansion. I see no particularly increased risk for surgical exploration/drainage in this case. Please keep the leg elevated. Vital Signs/I&O Vital Signs Date Time Temp Pulse Resp B/P (MAP) Pulse Ox O2 Delivery O2 Flow Rate FiO2 10/01/20 03:15 98.1 96 19 124/80 (95) 99 Room Air I&O- Last 24 Hours up to 6 AM 10/01/20 06:00 Intake Total 750 ml Balance 750 ml Laboratory Data Labs 24H Laboratory Tests 2 09/30/20 19:06: Immature Granulocyte % (Auto) 0.2, Neutrophils (%) (Auto) 81.3H, Lymphocytes (%) (Auto) 9.6L, Monocytes (%) (Auto) 7.7, Eosinophils (%) (Auto) 0.7, Basophils (%) (Auto) 0.5, Neutrophils # (Auto) 8.7H, Lymphocytes # (Auto) 1.0L, Monocytes # (Auto) 0.8, Eosinophils # (Auto) 0.1, Basophils # (Auto) 0.1, Nucleated Red Blood Cells % (auto) 0.0, Prothrombin Time 15.0H, Prothromb Time International Ratio 1.14, Activated Partial Thromboplast Time 48.5H 09/30/20 19:13: POC Glucose (Misc Panel) 133H, POC Sodium (Misc Panel) 144, POC Potassium (Misc Panel) 4.0, POC Chloride (Misc Panel) 104, POC Total CO2 (Misc Panel) 24.0, POC Blood Urea Nitrogen (Misc Panel 29H, POC Ionized Calcium (Misc Panel) 4.9, POC Creatinine (Misc Panel) 1.0, POC Hematocrit (Misc Panel) 30.0L 09/30/20 21:41: Coronavirus (COVID-19)(PCR) NEGATIVE, Influenza Type A (RT-PCR) NEGATIVE, Influenza Type B (RT-PCR) NEGATIVE, Respiratory Syncytial Virus (PCR) NEGATIVE 10/01/20 04:45: Nucleated Red Blood Cells % (auto) 0.0, Anion Gap 6L, Glomerular Filtration Rate > 60.0, Calcium Level 8.2L, Iron Level 68, Total Iron Binding Capacity 295, Transferrin % Saturation 23.1, Ferritin 48, Total Creatine Kinase 49 10/01/20 06:06: Lactic Acid Level 1.1 CBC/BMP Laboratory Tests 09/30/20 19:06 10/01/20 04:45 Allergies Coded Allergies: WESLEY Inhibitors (Verified Allergy, Severe, angioedema, 06/25/18) Sulfa (Sulfonamide Antibiotics) (Verified Allergy, Intermediate, 06/25/18) amlodipine (Verified Adverse Reaction, Intermediate, hot flashes, 06/25/18) ARB-Angiotensin Receptor Antagonist (Verified Adverse Reaction, Mild, fatigue, 06/25/18) atenolol (Verified Adverse Reaction, Mild, cough, 06/25/18) Home Medications Scheduled Apixaban (Eliquis) 2.5 Mg Tablet, 2.5 MG PO BID, (Reported) Bupropion Hcl (Bupropion HCl Sr) 200 Mg Tab, 200 MG PO BID, (Reported) Cholecalciferol (Vitamin D3) (Vitamin D3) 50 Mcg Capsule, 50 MCG PO DAILY, (Reported) Diltiazem HCl (Dilt-Xr) 180 Mg Cap.er.deg, 180 MG PO BID, (Reported) Hydrochlorothiazide (Hydrochlorothiazide) 25 Mg Tablet, 25 MG PO DAILY, (Reported) Losartan Potassium (Losartan Potassium) 100 Mg Tablet, 100 MG PO DAILY, (Reported) Magnesium Chloride (Mag64) 64 Mg Tabcr, 64 MG PO BID, (Reported) Scheduled PRN Docusate Sodium (Colace) 100 Mg Capsule, 100 MG PO DAILY PRN for CONSTIPATION, (Reported) Loratadine (Loratadine) 10 Mg Tablet, 10 MG PO DAILY PRN for ALLERGIES, (Reported) August Montes De Oca MD Oct 01, 2020 09:05
[2020-10-01] MEDS: buPROPion (WELLBUTRIN SR) 100 MG SR TAB PO SCH ×2 (09:18→20:31)
[2020-10-01] MEDS: diltiaZEM **CD** 180 MG CAP PO SCH ×2 (09:18→21:00)
[2020-10-01 09:57] LABS: FOLATE 11.9 NG/ML (>5.4); VITAMIN B12 LEVEL 558 PG/ML (247-911)
--- NOTE | 2020-10-01 10:07 | ECGEPIP ---
[facility] - ED Test Date: 2020-09-30 Pat Name: AZIZA GILLETTE Department: Room: [place] [address] Gender: Female [employer] Worker: VICTOR HUGO : 1935 Requested By: BONG MARTIN Order Number: [id number] Reading MD: Vicky Henson Measurements Intervals [place] Rate: 110 P: MD: QRS: -41 QRSD: 106 T: -26 QT: 348 QTc: 470 Interpretive Statements Atrial fibrillation with rapid ventricular response baseline artifact may affect interpretation Left axis deviation Minimal voltage criteria for LVH, may be normal variant ( [place] product ) Septal infarct , age undetermined NSTTW abnormalities increased rate 08/04/20 Electronically Signed on 10-01-2020 10:07:27 EDT by Vicky Henson
--- NOTE | 2020-10-01 13:24 | CR.PDOC ---
General Date of Consultation: Oct 01, [address] Gomes HISTORY OF PRESENT ILLNESS: The patient is an 85-year-old female status post fall, on Eliquis for chronic A. fib, and developed right calf hematoma. Gen. surgery consulted. This morning, the patient is resting in bed and states her right leg is feeling better. Swelling is improved. She is not complaining of pain. She has an James wrap around the right calf area. ALLERGIES: Please see below. HOME MEDICATIONS: Please see below. PMH/PSH Chronic A. 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 Mother colon cancer, hypertension Brother colon cancer SOCIAL HISTORY: Nonsmoker REVIEW OF SYSTEMS: As noted in HPI otherwise 10 point review of systems unremarkable. PHYSICAL EXAMINATION: VITAL SIGNS: Please see below. GENERAL APPEARANCE:NAD HEENT: MMM RESPIRATORY:CTA CARDIOVASCULAR: S1 and S2 irregularly irregular.. EXTREMITIES: Right lower extremity James wrap is removed. There is still some swelling of the right calf with ecchymosis noted but the skin is not tense. Mild tenderness with palpation small approximate 1-1/2 cm blister with serous fluid is noted on the posterior aspect of the calf. There are no open wounds, no breakdown of skin. Right foot sensation is intact to light touch. She is moving all her toes, plantar flexing and dorsiflexing the foot. Brisk capillary refill at the tips of the toes. CTA right lower extremity IMPRESSION: 1. Large calf hematoma as described above. 2. No vascular compromise. Nonvisualized dorsalis pedis artery likely related to technical factors. 3. Marked edema in the calf and ankle. Electronically signed by: Maurilio Jefferson On 09/30/2020 21:08:53 PM ASSESSMENT/PLAN: 1. Right lower extremity hematoma status post fall. The patient is reviewed and examined as per Dr. Gomes. No areas of skin breakdown or necrosis. There seems to be some improvement today with elevating the leg and applying James wrap. No surgical intervention would be recommended at this time. Would encourage continued ambulation Would encourage continued elevation of the right lower extremity Would encourage continued compression, Ajmes wrap applied lightly. Reconsult if needed. Vital Signs/I&O Vital Signs Date Time Temp Pulse Resp B/P (MAP) Pulse Ox O2 Delivery O2 Flow Rate FiO2 10/01/20 09:18 114 111/73 10/01/20 03:15 98.1 19 99 Room Air I&O- Last 24 Hours up to 6 AM 10/01/20 06:00 Intake Total 750 ml Balance 750 ml Laboratory Data Labs 24H Laboratory Tests 2 09/30/20 19:06: Immature Granulocyte % (Auto) 0.2, Neutrophils (%) (Auto) 81.3H, Lymphocytes (%) (Auto) 9.6L, Monocytes (%) (Auto) 7.7, Eosinophils (%) (Auto) 0.7, Basophils (%) (Auto) 0.5, Neutrophils # (Auto) 8.7H, Lymphocytes # (Auto) 1.0L, Monocytes # (Auto) 0.8, Eosinophils # (Auto) 0.1, Basophils # (Auto) 0.1, Nucleated Red Blood Cells % (auto) 0.0, Prothrombin Time 15.0H, Prothromb Time International Ratio 1.14, Activated Partial Thromboplast Time 48.5H 09/30/20 19:13: POC Glucose (Misc Panel) 133H, POC Sodium (Misc Panel) 144, POC Potassium (Misc Panel) 4.0, POC Chloride (Misc Panel) 104, POC Total CO2 (Misc Panel) 24.0, POC Blood Urea Nitrogen (Misc Panel 29H, POC Ionized Calcium (Misc Panel) 4.9, POC Creatinine (Misc Panel) 1.0, POC Hematocrit (Misc Panel) 30.0L 09/30/20 21:41: Coronavirus (COVID-19)(PCR) NEGATIVE, Influenza Type A (RT-PCR) NEGATIVE, Influenza Type B (RT-PCR) NEGATIVE, Respiratory Syncytial Virus (PCR) NEGATIVE 10/01/20 04:45: Nucleated Red Blood Cells % (auto) 0.0, Anion Gap 6L, Glomerular Filtration Rate > 60.0, Calcium Level 8.2L, Iron Level 68, Total Iron Binding Capacity 295, Transferrin % Saturation 23.1, Ferritin 48, Total Creatine Kinase 49, Vitamin B12 Level 558, Folate 11.9 10/01/20 06:06: Lactic Acid Level 1.1 10/01/20 11:09: Lab Scanned Report Miscellaneous Lab CBC/BMP Laboratory Tests 09/30/20 19:06 10/01/20 04:45 Allergies Coded Allergies: JAMES Inhibitors (Verified Allergy, Severe, angioedema, 06/25/18) Sulfa (Sulfonamide Antibiotics) (Verified Allergy, Intermediate, 06/25/18) amlodipine (Verified Adverse Reaction, Intermediate, hot flashes, 06/25/18) ARB-Angiotensin Receptor Antagonist (Verified Adverse Reaction, Mild, fatigue, 06/25/18) atenolol (Verified Adverse Reaction, Mild, cough, 06/25/18) Home Medications Scheduled Apixaban (Eliquis) 2.5 Mg Tablet, 2.5 MG PO BID, (Reported) Bupropion Hcl (Bupropion HCl Sr) 200 Mg Tab, 200 MG PO BID, (Reported) Cholecalciferol (Vitamin D3) (Vitamin D3) 50 Mcg Capsule, 50 MCG PO DAILY, (Reported) Diltiazem HCl (Dilt-Xr) 180 Mg Cap.er.deg, 180 MG PO BID, (Reported) Hydrochlorothiazide (Hydrochlorothiazide) 25 Mg Tablet, 25 MG PO DAILY, (Reported) Losartan Potassium (Losartan Potassium) 100 Mg Tablet, 100 MG PO DAILY, (Reported) Magnesium Chloride (Mag64) 64 Mg Tabcr, 64 MG PO BID, (Reported) Scheduled PRN Docusate Sodium (Colace) 100 Mg Capsule, 100 MG PO DAILY PRN for CONSTIPATION, (Reported) Loratadine (Loratadine) 10 Mg Tablet, 10 MG PO DAILY PRN for ALLERGIES, (Reported) Karen Fung Oct 01, 2020 13:24
[2020-10-01 14:00] VITALS: BP 123/77
[2020-10-01] MEDS ORDERED: POTASSIUM CHLORIDE 10 MEQ SR TABLET PO ONE (15:10)
[2020-10-01] MEDS: ACETAMINOPHEN 650MG ER TAB (TYLENOL ARTHRITIS) PO PRN (15:15)
--- NOTE | 2020-10-01 16:08 | IPNPDOC ---
Text Note Date of Service The patient was seen on 10/01/20. NOTE S: Pt seen and evaluated at bedside this AM. She tells me she is doing well and does not have any pain. Denies chest pain, palpitations, SOB. Pt tells me she lives at home w/ her daughter who is also her caregiver. She uses a walker at baseline to ambulate due to poor balance. Pt fell and hit head 09/27 when ambulating w/out her walker. She tells me she has fallen and had a hematoma (over her right hip, on her abdomen) in the past, and it is unclear how often the patient falls as she easily becomes confused w/ her hx. Pt tells me her neurosurgeon recently decreased her Eliquis from 5mg to 2.5mg. O: GEN: laying in bed, NAD, alert and awake, oriented HEENT: NC/AT, ventricular shunt on right side of head, EOMI, nares patent, moist mucous membranes CARDIO: normal heart sounds, RRR, no MRG PULM: CTA b/l, no WRR, accessory muscles used ABD: normal BS, soft, nontender, nondistended EXTREMITIES: no edema, normal ROM SKIN: RLE bruising and minimal swelling localized to proximal calf w/out surrounding signs of infxn IMAGING: CT Head (09/30): 1. There is moderate diffuse cerebellar atrophy. 2. There is disproportionate enlargement of the ventricles relative to the cortical sulci, findings suggestive of normal pressure hydrocephalus. 3. Moderate age related parenchymal atrophy. 4. No acute intracranial findings. RLE CTA (09/30): 1. Large calf hematoma as described above. 2. No vascular compromise. Nonvisualized dorsalis pedis artery likely related to technical factors. 3. Marked edema in the calf and ankle. 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 #RLE hematoma (mid calf) s/p fall RLE CTA, as noted above Seen and evaluated by Dr. Gomes (general surgery) who recommends conservative measurements at this time. Iron panel wnl. PT 15, INR 1.14 Hgb 10.0, Hct 29.6, LA 1.1, CK 49 Compression wrap over hematoma On Tylenol, Oxycodone PRN Monitor H&H, LA, CK #Chronic Afib- stable Rate controlled Will discuss w/ pt's family risks and benefits of chronic anticoagulation therapy, given pt's mobility at home, increased bleeding risk due to recurrent falls, and hx hematoma. At this time, we may recommend stopping anticoagulation therapy to minimize pt's bleeding risk. 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 PT/OT eval pending #HTN On Losartan, HCTZ, Diltiazem #Lewy body dementia s/p bx- stable #Pulmonary HTN, moderate- stable #Osteopenia- stable #DVT Prophylaxis Hold Eliquis and anticoagulants CHADsVasc 4 DIPSO: home w/ services vs longterm placement, pending clinical improvement OOB ad oziel w/ fall precautions Regular diet VS,Fishbone, I+O VS, Fishbone, I+O Laboratory Tests 09/30/20 19:06 10/01/20 04:45 Vital Signs Date Time Temp Pulse Resp B/P (MAP) Pulse Ox O2 Delivery O2 Flow Rate FiO2 10/01/20 14:00 95.8 93 16 123/77 (92) 96 Room Air I&O- Last 24 Hours up to 6 AM 10/01/20 06:00 Intake Total 750 ml Balance 750 ml GME ATTESTATION GME ATTESTATION My faculty preceptor for this patient encounter was physically present during the encounter and was fully available. All aspects of the patient interview, examination, medical decision making process, and medical care plan development were reviewed and approved by the faculty preceptor. The faculty preceptor is aware and concurs with the plan as stated in the body of this note and will attest to such by his/her cosignature. ATTENDING NOTE I, Angel Salas MD, have independently examined this patient and performed my own physical exam, as well as reviewed the documentation and edited where necessary. I have discussed in detail with the resident / student the findings and plan of treatment as documented by the resident / student and edited their note. I agree with their findings and treatment plan and have edited their documentation. GME ATTESTATION GME ATTESTATION My faculty preceptor for this patient encounter was physically present during the encounter and was fully available. All aspects of the patient interview, examination, medical decision making process, and medical care plan development were reviewed and approved by the faculty preceptor. The faculty preceptor is aware and concurs with the plan as stated in the body of this note and will attest to such by his/her cosignature. ATTENDING NOTE I, Angel Salas MD, have independently examined this patient and performed my own physical exam, as well as reviewed the documentation and edited where necessary. I have discussed in detail with the resident / student the findings and plan of treatment as documented by the resident / student and edited their note. I agree with their findings and treatment plan and have edited their documentation. Marah Cameron DO Oct 01, 2020 16:08 ANGEL SALAS MD Oct 07, 2020 13:28
[2020-10-01 22:00] VITALS: BP 103/65
[2020-10-02] MEDS: ACETAMINOPHEN 650MG ER TAB (TYLENOL ARTHRITIS) PO PRN (02:18)
[2020-10-02 06:00] VITALS: BP 126/71
[2020-10-02 08:21] LABS: HEMOGLOBIN 9.1 g/dl (12.0-15.5); MEAN CORPUSCULAR HEMOGLOBIN 31.2 pg (27.0-33.0); MEAN CORPUSCULAR HGB CONC 33.7 g/dl (32.0-36.5); MEAN CORPUSCULAR VOLUME 92.5 fl (80.0-96.0); PLATELET COUNT, AUTOMATED 189 10^3/uL (150-450); RED BLOOD COUNT 2.92 10^6/uL (4.00-5.40); WHITE BLOOD COUNT 7.2 10^3/uL (4.0-10.0)
[2020-10-02 08:44] LABS: BLOOD UREA NITROGEN 19 MG/DL (7-18); CALCIUM LEVEL 8.7 MG/DL (8.8-10.2); CARBON DIOXIDE LEVEL 28 MEQ/L (21-32); CHLORIDE LEVEL 110 MEQ/L (98-107); CREATININE FOR GFR 0.68 MG/DL (0.55-1.30); GLOMERULAR FILTRATION RATE > 60.0 (>32); GLUCOSE, FASTING 102 MG/DL (70-100); POTASSIUM SERUM 3.4 MEQ/L (3.5-5.1); SODIUM LEVEL 142 MEQ/L (136-145)
--- NOTE | 2020-10-02 08:57 | DS.PDOC ---
Discharge Summary General Date of Admission Oct 01, 2020 at 00:25 Date of Discharge 10/02/20 Attending Physician: ANGEL SALAS MD Specialist/Consultants Involve: JANELLE CABRERA DO Specialist/Consultants Involve LIEN MONTES DE OCA MD Discharge Summary PROCEDURES PERFORMED DURING STAY: None ADMITTING DIAGNOSES: 1. RLE Hematoma DISCHARGE DIAGNOSES: 1. RLE Hematoma COMPLICATIONS/CHIEF COMPLAINT: Fall, Hematoma. 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 Reports fall 09/27, while walking without her walker, and hit the side of her head. Denies trauma to b/l LE, but noticed worsening RLE pain, swelling, bruising 09/30. Describes pain as 11/10 in severity, exacerbated w/ ambulating and improved w/ morphine (given in ED). ED labs significant for CK 49, H&H 10.0 & 29.6 (pt's baseline). ED imaging significant for RLE hematoma, as noted below. consulted and recommended further consultation w/ Dr. Montes De Oca. consulted and, upon evaluation of the pt, he recommended conservative therapy. HOSPITAL COURSE: Pt admitted and Eliquis was held given current hematoma. She received light compression to site w/ WESLEY bandage and Tylenol PRN. Reported improvement in pain. On physical examination, site of hematoma was soft and stable. Pt was seen by general surgery the following day who recommended continued conservative measures. Pt's H&H remained at baseline during hospitalization. Iron panel wnl, coagulation study wnl. Pt reported hx falls 2/2 poor balance from NPH and intermittent noncompliance w/ walker. Pt seen and evaluated by PT/OT 10/01 who recommends home w/ services. Pt endorsed prior hematoma on left hip that was 2/2 fall. Pt lives at home w/ daughter who is 24/7 caregiver. Discussed w/ pt and her children the risks and benefits of chronic anticoagulation therapy. Given pt's mobility at home, increased bleeding risk, and hx recurrent falls w/ subsequent hematomas, there is continued risk for bleeding if anticoagulation w/ Eliquis is continued upon discharge. Given pt's hx Afib and CHADsVASc score 4, there is also risk for blood clotting and subsequent stroke if pt's anticoagulation is d/c upon discharge. Pt tells me her Eliquis was decreased from 5mg to 2.5mg by her Neurosurgeon recently. Pt and her family understand risks and benefits of continuing Eliquis and endorsed prior anticoagulation concerns expressed by pt's Neurosurgeon (in [place]) and [employer] (Dr. Lee). In speaking w/ pt's [employer], Dr. Lee, about pt's recurrent falls, hx hematomas, and chronic anticoagulation for Afib, he reiterated anticoagulation benefits outweigh risks in pt w/ Afib and CHADsVASc score 4. However, Dr. Lee does endorse stopping pt's current anticoagulation w/ Eliquis due to her recurrent falls 2/2 poor balance and hx hematomas. He will see pt in office for f/u within the next 7-10days. Pt and her family are in agreement w/ recommendations to discontinue Eliquis upon discharge. Upon discharge, pt's H&H noted to be 9.1 & 27.0. Pt was asx and denied dizziness, SOB, hematochezia, hematuria. There were no new or active signs/sites of bleeding on physical examination. DISCHARGE MEDICATIONS: Please see below. ALLERGIES: Please see below. PHYSICAL EXAMINATION ON DISCHARGE: VITAL SIGNS: Please see below. GENERAL: laying in bed eating breakfast, NAD HEENT: NC/AT, EOMI, nares patent, moist mucous membranes, ventricular shunt on right side of head NECK: supple CARDIOVASCULAR EXAMINATION: normal heart sounds, irregularly irregular rhythm, RR, no MRG RESPIRATORY EXAMINATION: CTA b/l, no WRR, no accessory muscles used ABDOMINAL EXAMINATION: normal BS, soft, nontender, nondistended EXTREMITIES: normal ROM, no edema SKIN: RLE bruising and minimal swelling localized to proximal calf w/out surrounding signs of infxn; 2cm fluid-filled blister on RLE NEUROLOGICAL EXAMINATION: no FND PSYCHIATRIC EXAMINATION: oriented. agitated LABORATORY DATA: Please see below. IMAGING: CT Head (09/30): 1. There is moderate diffuse cerebellar atrophy. 2. There is disproportionate enlargement of the ventricles relative to the cortical sulci, findings suggestive of normal pressure hydrocephalus. 3. Moderate age related parenchymal atrophy. 4. No acute intracranial findings. RLE CTA (09/30): 1. Large calf hematoma as described above. 2. No vascular compromise. Nonvisualized dorsalis pedis artery likely related to technical factors. 3. Marked edema in the calf and ankle. PROGNOSIS: fair ACTIVITY: As tolerated w/ walker or assistance, fall risk precautions DIET: regular DISCHARGE PLAN: 1. F/u PCP, 7-10days 2. F/u Cardiology (Dr. Lee), 7-10days DISPOSITION: home w/ 06/09 caregiver (daughter) DISCHARGE INSTRUCTIONS: 1. F/u PCP, 7-10days Pt and her family advised that if pt has fevers/chills, increased tenderness to site, or signs of infxn to go to ED for reevauation of hematoma and r/o infxn. 2. F/u Cardiology (Dr. Lee), 7-10days ITEMS TO FOLLOWUP ON ON OUTPATIENT: 1. PCP- reevaluation RLE hematoma 2. Cardiology- D/c chronic anticoagulation (Eliquis) DISCHARGE CONDITION: Stable TIME SPENT ON DISCHARGE: 20 minutes Vital Signs/I&Os Vital Signs Date Time Temp Pulse Resp B/P (MAP) Pulse Ox O2 Delivery O2 Flow Rate FiO2 10/02/20 06:00 97.4 82 15 126/71 (89) 95 Room Air I&O- Last 24 Hours up to 6 AM 10/02/20 05:59 Intake Total 940 ml Balance 940 ml Laboratory Data Labs 24H Laboratory Tests 2 10/01/20 11:09: Lab Scanned Report Miscellaneous Lab 10/02/20 07:32: Nucleated Red Blood Cells % (auto) 0.0, Anion Gap 4L, Glomerular Filtration Rate > 60.0, Calcium Level 8.7L CBC/BMP Laboratory Tests 10/02/20 07:32 Discharge Medications Scheduled Bupropion Hcl (Bupropion HCl Sr) 200 Mg Tab, 200 MG PO BID, (Reported) Cholecalciferol (Vitamin D3) (Vitamin D3) 50 Mcg Capsule, 50 MCG PO DAILY, (Reported) Diltiazem HCl (Dilt-Xr) 180 Mg Cap.er.deg, 180 MG PO BID, (Reported) Hydrochlorothiazide (Hydrochlorothiazide) 25 Mg Tablet, 25 MG PO DAILY, (Reported) Losartan Potassium (Losartan Potassium) 100 Mg Tablet, 100 MG PO DAILY, (Reported) Magnesium Chloride (Mag64) 64 Mg Tabcr, 64 MG PO BID, (Reported) Scheduled PRN Docusate Sodium (Colace) 100 Mg Capsule, 100 MG PO DAILY PRN for CONSTIPATION, (Reported) Loratadine (Loratadine) 10 Mg Tablet, 10 MG PO DAILY PRN for ALLERGIES, (Reported) Allergies Coded Allergies: WESLEY Inhibitors (Verified Allergy, Severe, angioedema, 06/25/18) Sulfa (Sulfonamide Antibiotics) (Verified Allergy, Intermediate, 06/25/18) amlodipine (Verified Adverse Reaction, Intermediate, hot flashes, 06/25/18) ARB-Angiotensin Receptor Antagonist (Verified Adverse Reaction, Mild, fatigue, 06/25/18) atenolol (Verified Adverse Reaction, Mild, cough, 06/25/18) GME ATTESTATION GME ATTESTATION My faculty preceptor for this patient encounter was physically present during the encounter and was fully available. All aspects of the patient interview, examination, medical decision making process, and medical care plan development were reviewed and approved by the faculty preceptor. The faculty preceptor is aware and concurs with the plan as stated in the body of this note and will attest to such by his/her cosignature. ATTENDING NOTE I, Angel aSlas MD, have independently examined this patient and performed my own physical exam, as well as reviewed the documentation and edited where necessary. I have discussed in detail with the resident / student the findings and plan of treatment as documented by the resident / student and edited their note. I agree with their findings and treatment plan and have edited their do cumentation. Total time spent on this discharge including coordination of care, review of chart documentation and actual patient contact is around 35 minutes Marah Cameron DO Oct 02, 2020 08:57 ANGEL SALAS MD Oct 07, 2020 13:30
[2020-10-02] MEDS: buPROPion (WELLBUTRIN SR) 100 MG SR TAB PO SCH (09:08)
[2020-10-02 09:09] VITALS: BP 130/75
[2020-10-02] MEDS: LOSARTAN 50MG TABLET PO SCH (09:09)
[2020-10-02] MEDS: diltiaZEM **CD** 180 MG CAP PO SCH (09:09)
[2020-10-02] MEDS ORDERED: POTASSIUM CHLORIDE 10 MEQ SR TABLET PO ONE ×2 (10:00→14:00)
[2020-10-02 10:02] LABS: MAGNESIUM LEVEL 1.8 MG/DL (1.8-2.4)
== END 2020-10-02 11:45 | disposition home health service (06) | DRG 605 ==
LOC: EDBD 17:49 → M ED 17:49 → M ED INP 10-01 00:25 → M MS5PR 10-01 03:21
PROVIDERS: ADMIT Internal Medicine; ATTEND Internal Medicine
DX: S80.11XA Contusion of right lower leg, initial encounter (principal); I48.11 Longstanding persistent atrial fibrillation; I10 Essential (primary) hypertension; G31.83 Neurocognitive disorder with Lewy bodies; F02.80 Dementia in other diseases classified elsewhere, unspecified severity, without behavioral disturbance, psychotic disturbance, mood disturbance, and anxiety; Q03.0 Malformations of aqueduct of Sylvius; M19.90 Unspecified osteoarthritis, unspecified site; I27.20 Pulmonary hypertension, unspecified; E55.9 Vitamin D deficiency, unspecified; E78.5 Hyperlipidemia, unspecified; Z90.49 Acquired absence of other specified parts of digestive tract; Z98.2 Presence of cerebrospinal fluid drainage device; Z20.822 Contact with and (suspected) exposure to COVID-19; D64.9 Anemia, unspecified; Z79.899 Other long term (current) drug therapy; Z88.2 Allergy status to sulfonamides; Z88.8 Allergy status to other drugs, medicaments and biological substances; W18.09XA Striking against other object with subsequent fall, initial encounter; Y92.9 Unspecified place or not applicable; Y99.8 Other external cause status; Y93.9 Activity, unspecified; M85.80 Other specified disorders of bone density and structure, unspecified site

== ENCOUNTER → 2020-10-15 | Outpatient (CLI) | payer MEDICARE, OTHER ==
[~2020-10-15] MED LIST changes: +DILT180C28 PO; -KLOR10TA76 PO; +POTA-136 PO; +VITA200044 PO
[2020-10-15 17:08] LABS: BLOOD UREA NITROGEN 28 MG/DL (7-18); CALCIUM LEVEL 9.4 MG/DL (8.8-10.2); CARBON DIOXIDE LEVEL 30 MEQ/L (21-32); CHLORIDE LEVEL 110 MEQ/L (98-107); CREATININE FOR GFR 0.87 MG/DL (0.55-1.30); GLOMERULAR FILTRATION RATE > 60.0 (>32); GLUCOSE, FASTING 111 MG/DL (70-100); POTASSIUM SERUM 4.5 MEQ/L (3.5-5.1); SODIUM LEVEL 142 MEQ/L (136-145)
== END ==
LOC: M PLALAB 12:05
PROVIDERS: ATTEND Family Medicine
DX: E87.6 Hypokalemia (principal)
CPT/HCPCS: 36415; 80048; 99495; G0463

== ENCOUNTER → 2020-12-30 | Outpatient (CLI) | payer MEDICARE, OTHER ==
[2020-12-30 14:25] LABS: BLOOD UREA NITROGEN 29 MG/DL (7-18); CALCIUM LEVEL 9.3 MG/DL (8.8-10.2); CARBON DIOXIDE LEVEL 29 MEQ/L (21-32); CHLORIDE LEVEL 110 MEQ/L (98-107); GLOMERULAR FILTRATION RATE > 60.0 (>32); GLUCOSE, FASTING 103 MG/DL (70-100); MAGNESIUM LEVEL 2.2 MG/DL (1.8-2.4); POTASSIUM SERUM 4.9 MEQ/L (3.5-5.1); SODIUM LEVEL 144 MEQ/L (136-145)
[2020-12-30 14:27] LABS: TOTAL 25(OH) VITAMIN D 67.2 NG/ML (30.0-100.0)
== END ==
LOC: M PLALAB 10:22
PROVIDERS: ATTEND Family Medicine
DX: E83.42 Hypomagnesemia (principal); I10 Essential (primary) hypertension; Z79.899 Other long term (current) drug therapy

== ENCOUNTER → 2021-01-19 | Outpatient (CLI) | payer MEDICARE, OTHER ==
--- NOTE | 2021-01-19 12:04 | DEXAMM ---
INDICATION: LOW BONE DENSITY. COMPARISON: 06/04/2014. TECHNIQUE: Bone density was measured using dual-energy x-ray absorptiometry (DEXA). FINDINGS: AP SPINE L1-L4 BMD 0.971 g/cm2 Young Adult T-Score -1.8 Age Matched Z-Score 0.1. LT FEMUR, TOTAL BMD 0.704 g/cm2 Young Adult T-Score -2.4 Age Matched Z-Score -0.1. LT NECK BMD 0.740 g/cm2 Young Adult T-Score -2.1 Age Matched Z-Score 0.3. RT FEMUR, TOTAL BMD 0.640 g/cm2 Young Adult T-Score -2.9 Age Matched Z-Score -0.6. RT NECK BMD 0.678 g/cm2 Young Adult T-Score -2.6 Age Matched Z-Score -0.2. IMPRESSION: There is low bone density of the spine. There is low bone density of the left hip. There is osteoporosis of the right hip. The density of the spine has decreased 3.8% since the initial exam on 11/28/2002. The density of the spine decreased 12.2% since most recent exam on 06/04/2014. The density of the left hip has decreased 22.7% since initial exam on 11/28/2002. The density of the left hip has decreased 17.6% since most recent exam on 06/04/2014. The density of the right hip has decreased 19.5% since the initial exam on 11/28/2002. The density of the right hip has decreased 16.1% since the most recent exam on 06/04/2014. FOLLOW-UP: Recommendation for the next bone density exam: 1 year. <Electronically signed by Peter Whipple > 01/19/21 0018
== END ==
LOC: M WHC 10:40
PROVIDERS: ATTEND Family Medicine
DX: M81.0 Age-related osteoporosis without current pathological fracture (principal)

== ENCOUNTER 2021-05-12 17:20 | Emergency (ER) | payer MEDICARE, OTHER ==
[~2021-05-12] VITALS: Ht 160 cm; Wt 56.8 kg
[~2021-05-12 17:20] MED LIST changes: +LOSA100T45; +LOSA100T45 PO; -LOSA100T50; -LOSA100T50 PO; +POTA-151 PO; -POTA20TA6 PO
[2021-05-12] MEDS ORDERED: FISH1000 PO (17:39)
[2021-05-12] MEDS ORDERED: ELIQ5TAB (17:39)
[2021-05-12] MEDS ORDERED: POTA-151 (17:39)
[2021-05-12] MEDS ORDERED: MECLIZINE 25 MG TABLET PO ONE (18:45)
[2021-05-12] MEDS ORDERED: ONDANSETRON 4MG/2ML VIAL IV ONE (18:45)
[2021-05-12 19:11] LABS: BASO % 0.5 % (0.0-1.0); EOS % 0.1 % (0.0-3.0); HEMATOCRIT 41.2 % (36.0-47.0); HEMOGLOBIN 13.9 g/dl (12.0-15.5); MEAN CORPUSCULAR HEMOGLOBIN 30.6 pg (27.0-33.0); MEAN CORPUSCULAR HGB CONC 33.7 g/dl (32.0-36.5); MEAN CORPUSCULAR VOLUME 90.7 fl (80.0-96.0); MONO # 0.5 10^3/uL (0.0-0.8); MONO % 6.1 % (2.0-8.0); NEUTROPHILS # 6.8 10^3/uL (1.5-8.5); NEUTROPHILS % 81.1 % (36.0-66.0); PLATELET COUNT, AUTOMATED 245 10^3/uL (150-450); RED BLOOD COUNT 4.54 10^6/uL (4.00-5.40); WHITE BLOOD COUNT 8.4 10^3/uL (4.0-10.0)
[2021-05-12 19:50] LABS: ALBUMIN 3.6 GM/DL (3.2-5.2); ALT/SGPT 23 U/L (12-78); BILIRUBIN,DIRECT 0.2 MG/DL (0.0-0.2); BILIRUBIN,TOTAL 0.4 MG/DL (0.2-1.0); BLOOD UREA NITROGEN 22 MG/DL (7-18); CALCIUM LEVEL 8.9 MG/DL (8.8-10.2); CARBON DIOXIDE LEVEL 27 MEQ/L (21-32); CHLORIDE LEVEL 107 MEQ/L (98-107); CREATININE FOR GFR 0.78 MG/DL (0.55-1.30); GLOMERULAR FILTRATION RATE > 60.0 (>32); GLUCOSE, FASTING 154 MG/DL (70-100); POTASSIUM SERUM 4.2 MEQ/L (3.5-5.1); SODIUM LEVEL 140 MEQ/L (136-145); TOTAL PROTEIN 6.8 GM/DL (6.4-8.2)
[2021-05-12 21:45] VITALS: BP 135/79
[2021-05-12] MEDS ORDERED: ONDA4TAB6 PO (23:26)
[2021-05-12] MEDS ORDERED: MECL1TAB31 PO (23:26)
== END 2021-05-13 00:18 | disposition home or self-care (01) ==
LOC: M ED 17:20
DX: R42 Dizziness and giddiness (principal); I10 Essential (primary) hypertension; F03.90 Unspecified dementia, unspecified severity, without behavioral disturbance, psychotic disturbance, mood disturbance, and anxiety; F33.9 Major depressive disorder, recurrent, unspecified; Z79.899 Other long term (current) drug therapy; Z79.01 Long term (current) use of anticoagulants; Z88.1 Allergy status to other antibiotic agents; Z88.2 Allergy status to sulfonamides; Z88.8 Allergy status to other drugs, medicaments and biological substances
CPT/HCPCS: 70450; 71045; 75809; 80048; 80076; 84443; 84484; 85025; 93005; 93041; 94760; 96374; 99285; J2405

== ENCOUNTER → 2021-06-26 | Outpatient (CLI) | payer MEDICARE, OTHER ==
[~2021-06-26] MED LIST changes: -BUPR200T2 PO; +BUPR200T41 PO; +ELIQ5TAB; +FISH1000 PO; +MECL1TAB31 PO; +ONDA4TAB6 PO; +POTA-151; +SPIR-10
[2021-06-26 14:04] LABS: BASO % 0.5 % (0.0-1.0); EOS # 0.1 10^3/uL (0.0-0.5); EOS % 0.9 % (0.0-3.0); HEMATOCRIT 40.5 % (36.0-47.0); HEMOGLOBIN 13.2 g/dl (12.0-15.5); LYMPH # 1.7 10^3/uL (1.5-5.0); LYMPH % 21.5 % (24.0-44.0); MEAN CORPUSCULAR HEMOGLOBIN 30.9 pg (27.0-33.0); MEAN CORPUSCULAR HGB CONC 32.6 g/dl (32.0-36.5); MEAN CORPUSCULAR VOLUME 94.8 fl (80.0-96.0); MONO # 0.8 10^3/uL (0.0-0.8); MONO % 10.6 % (2.0-8.0); NEUTROPHILS # 5.1 10^3/uL (1.5-8.5); NEUTROPHILS % 66.2 % (36.0-66.0); PLATELET COUNT, AUTOMATED 253 10^3/uL (150-450); RED BLOOD COUNT 4.27 10^6/uL (4.00-5.40); WHITE BLOOD COUNT 7.7 10^3/uL (4.0-10.0)
[2021-06-26 14:37] LABS: ALBUMIN 3.4 GM/DL (3.2-5.2); BILIRUBIN,TOTAL 0.4 MG/DL (0.2-1.0); CALCIUM LEVEL 9.8 MG/DL (8.8-10.2); CREATININE FOR GFR 1.22 MG/DL (0.55-1.30); GLOMERULAR FILTRATION RATE 44.6 (>32); POTASSIUM SERUM 5.3 MEQ/L (3.5-5.1); THYROID STIMULATING HORMONE 2.74 uIU/ML (0.358-3.740); TOTAL PROTEIN 6.8 GM/DL (6.4-8.2)
== END ==
LOC: M PLALAB 11:47
PROVIDERS: ATTEND Physician Assistant
DX: I10 Essential (primary) hypertension (principal); M17.11 Unilateral primary osteoarthritis, right knee; M11.261 Other chondrocalcinosis, right knee

== ENCOUNTER 2021-08-17 21:20 | Emergency (ER) | payer MEDICARE, OTHER ==
[~2021-08-17] VITALS: Ht 160 cm; Wt 55.6 kg
[2021-08-17 22:50] VITALS: BP 136/74
== END 2021-08-17 22:56 | disposition home or self-care (01) ==
LOC: M ED 21:20
DX: S01.01XA Laceration without foreign body of scalp, initial encounter (principal); W18.39XA Other fall on same level, initial encounter; Y92.018 Other place in single-family (private) house as the place of occurrence of the external cause; I10 Essential (primary) hypertension; I48.91 Unspecified atrial fibrillation; I87.2 Venous insufficiency (chronic) (peripheral); E78.5 Hyperlipidemia, unspecified; Q03.0 Malformations of aqueduct of Sylvius; Z98.2 Presence of cerebrospinal fluid drainage device; Z88.1 Allergy status to other antibiotic agents; Z88.2 Allergy status to sulfonamides; Z88.8 Allergy status to other drugs, medicaments and biological substances; Z79.899 Other long term (current) drug therapy; Z79.01 Long term (current) use of anticoagulants

== ENCOUNTER → 2021-08-28 | Outpatient (REF) | payer MEDICARE, OTHER ==
[2021-08-28 13:40] LABS: AMORPHOUS SEDIMENT SMALL (NEGATIVE); APPEARANCE, URINE HAZY (CLEAR); BACTERIA, URINE AUTO 2+ (NEGATIVE); BILIRUBIN, URINE AUTO NEGATIVE (NEGATIVE); BLOOD, URINE BLOOD NEGATIVE (NEGATIVE); COLOR, URINE YELLOW (YELLOW); GLUCOSE, URINE (UA) AUTO NEGATIVE (NEGATIVE); KETONE, URINE AUTO NEGATIVE (NEGATIVE); LEUKOCYTE ESTERASE, URINE AUTO 2+ (NEGATIVE); MUCUS, URINE SMALL (NEGATIVE); NITRITE, URINE AUTO NEGATIVE (NEGATIVE); PROTEIN, URINE AUTO NEGATIVE (NEGATIVE); RBC, URINE AUTO 1 /HPF (0-3); SPECIFIC GRAVITY URINE AUTO 1.019 (1.002-1.035); SQUAMOUS EPITHELIAL CELL UR AU 1 /HPF (0-6); UROBILINOGEN, URINE AUTO 0.2 mg/dL (0.0-2.0); WBC, URINE AUTO 4 /HPF (0-3)
== END ==
LOC: M SFHCPLAZ 12:56
PROVIDERS: ATTEND Physician Assistant
DX: R34 Anuria and oliguria (principal)

== ENCOUNTER → 2021-09-21 | Outpatient (CLI) | payer MEDICARE, OTHER | LOC: M RAD 16:40 | PROVIDERS: ATTEND Neurological Surgery | DX: Q03.0 Malformations of aqueduct of Sylvius (principal); Z98.2 Presence of cerebrospinal fluid drainage device ==

== ENCOUNTER → 2021-11-05 | Outpatient (CLI) | payer MEDICARE, OTHER | LOC: M WUC 11:16 | PROVIDERS: ATTEND Physician Assistant | DX: M25.511 Pain in right shoulder (principal) ==

== ENCOUNTER 2022-06-12 13:42 | Emergency (ER) | payer MEDICARE, OTHER ==
[~2022-06-12] VITALS: Ht 165.1 cm; Wt 59.1 kg
[2022-06-12] MEDS ORDERED: NORCO, ANEXSIA 5/325MG TABLET (HYDROcodone/ACETAMINOPHEN) PO ONE (14:25)
[2022-06-12] MEDS ORDERED: HYDR-3713 PO ×3 (16:44→17:02)
[2022-06-12 16:58] VITALS: BP 134/78
== END 2022-06-12 17:21 | disposition home or self-care (01) ==
LOC: M ED 13:42
DX: S82.201A Unspecified fracture of shaft of right tibia, initial encounter for closed fracture (principal); W10.1XXA Fall (on)(from) sidewalk curb, initial encounter; Y92.410 Unspecified street and highway as the place of occurrence of the external cause; Y93.01 Activity, walking, marching and hiking; Y99.8 Other external cause status; I10 Essential (primary) hypertension; E78.5 Hyperlipidemia, unspecified; F32.A Depression, unspecified; D64.9 Anemia, unspecified; I48.91 Unspecified atrial fibrillation; F03.90 Unspecified dementia, unspecified severity, without behavioral disturbance, psychotic disturbance, mood disturbance, and anxiety; Z88.2 Allergy status to sulfonamides; Z88.8 Allergy status to other drugs, medicaments and biological substances; Z79.899 Other long term (current) drug therapy

== ENCOUNTER → 2022-06-16 | Outpatient (REF) ==
[~2022-06-16] MED LIST changes: +HYDR-3713 PO; -LOSA100T45; -LOSA100T45 PO; +LOSA100T46; +LOSA100T46 PO
[2022-06-16 11:24] LABS: HEMATOCRIT 35.3 % (36.0-47.0); HEMOGLOBIN 11.4 g/dl (12.0-15.5); MEAN CORPUSCULAR HEMOGLOBIN 30.2 pg (27.0-33.0); MEAN CORPUSCULAR HGB CONC 32.3 g/dl (32.0-36.5); MEAN CORPUSCULAR VOLUME 93.6 fl (80.0-96.0); PLATELET COUNT, AUTOMATED 262 10^3/uL (150-450); RED BLOOD COUNT 3.77 10^6/uL (4.00-5.40); WHITE BLOOD COUNT 5.6 10^3/uL (4.0-10.0)
[2022-06-16 12:02] LABS: BLOOD UREA NITROGEN 25 MG/DL (9-23); CALCIUM LEVEL 8.6 MG/DL (8.3-10.6); CARBON DIOXIDE LEVEL 28 MMOL/L (20-31); CHLORIDE LEVEL 108 MMOL/L (98-107); CREATININE FOR GFR 0.81 MG/DL (0.55-1.30); GLOMERULAR FILTRATION RATE > 60.0 (>32); GLUCOSE, FASTING 105 MG/DL (74-106); SODIUM LEVEL 143 MMOL/L (136-145)
== END ==
PROVIDERS: ATTEND Internal Medicine
DX: I10 Essential (primary) hypertension (principal)

== ENCOUNTER → 2022-06-23 | Outpatient (REF) ==
[2022-06-23 10:34] LABS: HEMATOCRIT 36.6 % (36.0-47.0); HEMOGLOBIN 11.8 g/dl (12.0-15.5); MEAN CORPUSCULAR HEMOGLOBIN 30.1 pg (27.0-33.0); MEAN CORPUSCULAR HGB CONC 32.2 g/dl (32.0-36.5); MEAN CORPUSCULAR VOLUME 93.4 fl (80.0-96.0); PLATELET COUNT, AUTOMATED 348 10^3/uL (150-450); RED BLOOD COUNT 3.92 10^6/uL (4.00-5.40); WHITE BLOOD COUNT 7.3 10^3/uL (4.0-10.0)
[2022-06-23 11:02] LABS: BLOOD UREA NITROGEN 20 MG/DL (9-23); CALCIUM LEVEL 8.9 MG/DL (8.3-10.6); CARBON DIOXIDE LEVEL 29 MMOL/L (20-31); CHLORIDE LEVEL 108 MMOL/L (98-107); GLOMERULAR FILTRATION RATE > 60.0 (>32); GLUCOSE, FASTING 92 MG/DL (74-106); POTASSIUM SERUM 3.9 MMOL/L (3.5-5.1); SODIUM LEVEL 144 MMOL/L (136-145)
== END ==
PROVIDERS: ATTEND Internal Medicine
DX: I10 Essential (primary) hypertension (principal)

== ENCOUNTER → 2022-06-25 | Outpatient (REF) | PROVIDERS: ATTEND Internal Medicine | DX: N39.0 Urinary tract infection, site not specified (principal) ==

== ENCOUNTER → 2022-06-25 | Outpatient (REF) | payer MEDICARE, OTHER ==
[2022-06-25 09:40] LABS: HEMATOCRIT 37.2 % (36.0-47.0); HEMOGLOBIN 12.1 g/dl (12.0-15.5); MEAN CORPUSCULAR HEMOGLOBIN 30.4 pg (27.0-33.0); MEAN CORPUSCULAR HGB CONC 32.5 g/dl (32.0-36.5); MEAN CORPUSCULAR VOLUME 93.5 fl (80.0-96.0); PLATELET COUNT, AUTOMATED 358 10^3/uL (150-450); RED BLOOD COUNT 3.98 10^6/uL (4.00-5.40); WHITE BLOOD COUNT 8.2 10^3/uL (4.0-10.0)
[2022-06-25 10:07] LABS: CALCIUM LEVEL 8.8 MG/DL (8.3-10.6); CREATININE FOR GFR 0.96 MG/DL (0.55-1.30); GLOMERULAR FILTRATION RATE 58.7 (>32); MAGNESIUM LEVEL 1.6 MG/DL (1.8-2.4); POTASSIUM SERUM 3.8 MMOL/L (3.5-5.1)
[2022-06-25 10:09] LABS: THYROID STIMULATING HORMONE 2.076 uIU/ML (0.55-4.78)
== END ==
PROVIDERS: ATTEND Physician Assistant
DX: I10 Essential (primary) hypertension (principal)

== ENCOUNTER → 2022-07-08 | Outpatient (CLI) | payer MEDICARE, OTHER | LOC: M SOG 08:29 | PROVIDERS: ATTEND Physician Assistant | DX: S82.131A Displaced fracture of medial condyle of right tibia, initial encounter for closed fracture (principal) ==

== ENCOUNTER → 2022-08-02 | Outpatient (REF) | payer MEDICARE, OTHER ==
[2022-08-02 09:05] LABS: BLOOD UREA NITROGEN 27 MG/DL (9-23); CALCIUM LEVEL 9.6 MG/DL (8.3-10.6); CARBON DIOXIDE LEVEL 29 MMOL/L (20-31); CHLORIDE LEVEL 109 MMOL/L (98-107); CREATININE FOR GFR 0.83 MG/DL (0.55-1.30); GLOMERULAR FILTRATION RATE > 60.0 (>32); GLUCOSE, FASTING 94 MG/DL (74-106); SODIUM LEVEL 144 MMOL/L (136-145)
== END ==
PROVIDERS: ATTEND Internal Medicine
DX: I10 Essential (primary) hypertension (principal)

== ENCOUNTER → 2022-08-09 | Outpatient (CLI) | payer MEDICARE, OTHER | LOC: M SOG 10:23 | PROVIDERS: ATTEND Physician Assistant | DX: S82.131A Displaced fracture of medial condyle of right tibia, initial encounter for closed fracture (principal); Z53.8 Procedure and treatment not carried out for other reasons ==

== ENCOUNTER → 2022-09-01 | Outpatient (REF) | payer MEDICARE, OTHER ==
[2022-09-01 10:55] LABS: BLOOD UREA NITROGEN 19 MG/DL (9-23); CALCIUM LEVEL 9.1 MG/DL (8.3-10.6); CARBON DIOXIDE LEVEL 30 MMOL/L (20-31); CHLORIDE LEVEL 107 MMOL/L (98-107); CREATININE FOR GFR 0.68 MG/DL (0.55-1.30); GLOMERULAR FILTRATION RATE > 60.0 (>32); GLUCOSE, FASTING 107 MG/DL (74-106); POTASSIUM SERUM 3.9 MMOL/L (3.5-5.1); SODIUM LEVEL 143 MMOL/L (136-145)
== END ==
PROVIDERS: ATTEND Internal Medicine
DX: I10 Essential (primary) hypertension (principal)

== ENCOUNTER → 2022-09-20 | Outpatient (REF) | payer MEDICARE, OTHER ==
[2022-09-20 08:20] LABS: HEMATOCRIT 39.3 % (36.0-47.0); MEAN CORPUSCULAR HEMOGLOBIN 30.2 pg (27.0-33.0); MEAN CORPUSCULAR HGB CONC 33.1 g/dl (32.0-36.5); MEAN CORPUSCULAR VOLUME 91.2 fl (80.0-96.0); PLATELET COUNT, AUTOMATED 236 10^3/uL (150-450); RED BLOOD COUNT 4.31 10^6/uL (4.00-5.40); WHITE BLOOD COUNT 5.5 10^3/uL (4.0-10.0)
[2022-09-20 08:52] LABS: BLOOD UREA NITROGEN 24 MG/DL (9-23); CALCIUM LEVEL 9.2 MG/DL (8.3-10.6); CARBON DIOXIDE LEVEL 30 MMOL/L (20-31); CHLORIDE LEVEL 106 MMOL/L (98-107); CREATININE FOR GFR 0.79 MG/DL (0.55-1.30); GLOMERULAR FILTRATION RATE > 60.0 (>32); GLUCOSE, FASTING 97 MG/DL (74-106); POTASSIUM SERUM 3.7 MMOL/L (3.5-5.1); SODIUM LEVEL 145 MMOL/L (136-145)
== END ==
PROVIDERS: ATTEND Internal Medicine
DX: I10 Essential (primary) hypertension (principal)

== ENCOUNTER → 2022-10-04 | Outpatient (REF) | payer MEDICARE, OTHER ==
[2022-10-04 08:22] LABS: HEMATOCRIT 40.3 % (36.0-47.0); HEMOGLOBIN 13.5 g/dl (12.0-15.5); MEAN CORPUSCULAR HEMOGLOBIN 30.7 pg (27.0-33.0); MEAN CORPUSCULAR HGB CONC 33.5 g/dl (32.0-36.5); MEAN CORPUSCULAR VOLUME 91.6 fl (80.0-96.0); PLATELET COUNT, AUTOMATED 214 10^3/uL (150-450); WHITE BLOOD COUNT 5.8 10^3/uL (4.0-10.0)
[2022-10-04 08:48] LABS: BLOOD UREA NITROGEN 22 MG/DL (9-23); CARBON DIOXIDE LEVEL 25 MMOL/L (20-31); CHLORIDE LEVEL 107 MMOL/L (98-107); CREATININE FOR GFR 0.81 MG/DL (0.55-1.30); GLOMERULAR FILTRATION RATE > 60.0 (>32); GLUCOSE, FASTING 114 MG/DL (74-106); POTASSIUM SERUM 4.1 MMOL/L (3.5-5.1); SODIUM LEVEL 141 MMOL/L (136-145)
== END ==
PROVIDERS: ATTEND Internal Medicine
DX: I10 Essential (primary) hypertension (principal)

== ENCOUNTER → 2022-10-08 | Outpatient (REF) | payer MEDICARE, OTHER | PROVIDERS: ATTEND Internal Medicine | DX: S82.54XA Nondisplaced fracture of medial malleolus of right tibia, initial encounter for closed fracture (principal); W19.XXXA Unspecified fall, initial encounter; Y92.129 Unspecified place in nursing home as the place of occurrence of the external cause; Y93.9 Activity, unspecified ==

== ENCOUNTER → 2022-10-21 | Outpatient (CLI) | payer MEDICARE, OTHER ==
[~2022-10-21] MED LIST changes: +LORA-1041 PO; -LORA-674 PO; +MECL-209 PO; -MECL1TAB31 PO
== END ==
LOC: M SOG 08:20
PROVIDERS: ATTEND Physician Assistant
DX: M25.571 Pain in right ankle and joints of right foot (principal)

== ENCOUNTER → 2022-11-25 | Outpatient (CLI) | payer MEDICARE, OTHER | LOC: M SOG 10:11 | PROVIDERS: ATTEND Physician Assistant | DX: M25.571 Pain in right ankle and joints of right foot (principal) ==

== ENCOUNTER → 2023-01-24 | Outpatient (REF) | payer MEDICARE, OTHER | PROVIDERS: ATTEND Physician Assistant | DX: R05.9 Cough, unspecified (principal) ==

== ENCOUNTER → 2023-02-02 | Outpatient (REF) | payer MEDICARE, OTHER ==
[2023-02-02 10:52] LABS: HEMATOCRIT 40.1 % (36.0-47.0); HEMOGLOBIN 13.1 g/dl (12.0-15.5); MEAN CORPUSCULAR HEMOGLOBIN 31.3 pg (27.0-33.0); MEAN CORPUSCULAR HGB CONC 32.7 g/dl (32.0-36.5); MEAN CORPUSCULAR VOLUME 95.7 fl (80.0-96.0); PLATELET COUNT, AUTOMATED 342 10^3/uL (150-450); RED BLOOD COUNT 4.19 10^6/uL (4.00-5.40)
[2023-02-02 11:14] LABS: BLOOD UREA NITROGEN 25 MG/DL (9-23); CALCIUM LEVEL 9.6 MG/DL (8.3-10.6); CARBON DIOXIDE LEVEL 28 MMOL/L (20-31); CHLORIDE LEVEL 110 MMOL/L (98-107); CREATININE FOR GFR 0.93 MG/DL (0.55-1.30); GLOMERULAR FILTRATION RATE > 60.0 (>32); GLUCOSE, FASTING 118 MG/DL (74-106); POTASSIUM SERUM 4.5 MMOL/L (3.5-5.1); SODIUM LEVEL 144 MMOL/L (136-145)
== END ==
PROVIDERS: ATTEND Internal Medicine
DX: I10 Essential (primary) hypertension (principal)

== ENCOUNTER → 2023-03-17 | Outpatient (REF) | payer MEDICARE, OTHER | PROVIDERS: ATTEND Internal Medicine | DX: M17.11 Unilateral primary osteoarthritis, right knee (principal); M25.461 Effusion, right knee ==

== ENCOUNTER → 2023-03-23 | Outpatient (REF) | payer MEDICARE, OTHER | PROVIDERS: ATTEND Internal Medicine | DX: M85.861 Other specified disorders of bone density and structure, right lower leg (principal); M17.11 Unilateral primary osteoarthritis, right knee ==

== ENCOUNTER → 2023-06-01 | Outpatient (REF) | payer MEDICARE, OTHER ==
[2023-06-01 12:34] LABS: HEMATOCRIT 39.2 % (36.0-47.0); HEMOGLOBIN 12.5 g/dl (12.0-15.5); MEAN CORPUSCULAR HEMOGLOBIN 30.2 pg (27.0-33.0); MEAN CORPUSCULAR HGB CONC 31.9 g/dl (32.0-36.5); MEAN CORPUSCULAR VOLUME 94.7 fl (80.0-96.0); PLATELET COUNT, AUTOMATED 268 10^3/uL (150-450); RED BLOOD COUNT 4.14 10^6/uL (4.00-5.40); WHITE BLOOD COUNT 5.9 10^3/uL (4.0-10.0)
[2023-06-01 13:06] LABS: CALCIUM LEVEL 9.2 MG/DL (8.3-10.6); CREATININE FOR GFR 0.94 MG/DL (0.55-1.30); POTASSIUM SERUM 3.8 MMOL/L (3.5-5.1)
== END ==
PROVIDERS: ATTEND Internal Medicine
DX: I10 Essential (primary) hypertension (principal)

== ENCOUNTER → 2023-06-14 | Outpatient (REF) | payer MEDICARE, OTHER | PROVIDERS: ATTEND Physician Assistant | DX: R05.9 Cough, unspecified (principal) ==

== ENCOUNTER → 2023-10-04 | Outpatient (REF) | payer MEDICARE, OTHER ==
[~2023-10-04] MED LIST changes: +ONDA-282 PO; -ONDA4TAB6 PO
== END ==
PROVIDERS: ATTEND Physician Assistant
DX: R05.9 Cough, unspecified (principal)

== ENCOUNTER → 2023-10-05 | Outpatient (REF) | payer MEDICARE, OTHER ==
[2023-10-05 10:19] LABS: HEMOGLOBIN 12.1 g/dl (12.0-15.5); MEAN CORPUSCULAR HEMOGLOBIN 30.8 pg (27.0-33.0); MEAN CORPUSCULAR HGB CONC 33.6 g/dl (32.0-36.5); MEAN CORPUSCULAR VOLUME 91.6 fl (80.0-96.0); PLATELET COUNT, AUTOMATED 219 10^3/uL (150-450); RED BLOOD COUNT 3.93 10^6/uL (4.00-5.40)
[2023-10-05 10:45] LABS: BLOOD UREA NITROGEN 23 MG/DL (9-23); CALCIUM LEVEL 8.9 MG/DL (8.3-10.6); CARBON DIOXIDE LEVEL 27 MMOL/L (20-31); CHLORIDE LEVEL 110 MMOL/L (98-107); CREATININE FOR GFR 0.93 MG/DL (0.55-1.30); GLOMERULAR FILTRATION RATE > 60.0 (>32); GLUCOSE, FASTING 113 MG/DL (74-106); SODIUM LEVEL 143 MMOL/L (136-145)
== END ==
PROVIDERS: ATTEND Internal Medicine
DX: I10 Essential (primary) hypertension (principal)

== ENCOUNTER → 2023-12-11 | Outpatient (REF) | PROVIDERS: ATTEND Internal Medicine | DX: R19.7 Diarrhea, unspecified (principal) ==

== ENCOUNTER → 2023-12-11 | Outpatient (REF) | PROVIDERS: ATTEND Internal Medicine | DX: R19.7 Diarrhea, unspecified (principal) ==

== ENCOUNTER 2024-01-06 12:49 | Emergency (ER) | payer MEDICARE, OTHER ==
[~2024-01-06] VITALS: Ht 157.5 cm; Wt 56.0 kg
[~2024-01-06 12:49] MED LIST changes: -APAP325T4 PO; -BISA10SU27 PR; -BUPR15TASR PO; -BUPR1TAB52 PO; -DILT180C73 PO; -ERGO500029 PO; -FLEEENE12 PR; -MEMA10TA PO; -MILKSUS3 PO; -POTA-298 PO; -QUET1TAB17 PO; -SERT25TA21 PO
[2024-01-06 13:02] VITALS: TEMP 97.6
[2024-01-06] MEDS ORDERED: MILKSUS3 PO (13:46)
[2024-01-06] MEDS ORDERED: QUET1TAB17 PO (13:46)
[2024-01-06] MEDS ORDERED: FLEEENE12 PR (13:46)
[2024-01-06] MEDS ORDERED: POTA-298 PO (13:46)
[2024-01-06] MEDS ORDERED: BISA10SU27 PR (13:46)
[2024-01-06] MEDS ORDERED: DILT180C73 PO (13:46)
[2024-01-06] MEDS ORDERED: MEMA10TA PO (13:46)
[2024-01-06] MEDS ORDERED: APAP325T4 PO (13:46)
[2024-01-06] MEDS ORDERED: BUPR1TAB52 PO (13:46)
[2024-01-06] MEDS ORDERED: SERT25TA21 PO (13:46)
[2024-01-06] MEDS ORDERED: BUPR15TASR PO (13:46)
[2024-01-06] MEDS ORDERED: ERGO500029 PO (13:46)
[2024-01-06] MEDS ORDERED: HOME MED LIST COMPLETE! XX SCH (13:50)
[2024-01-06 14:35] VITALS: BP 115/65; O2SAT 98
== END 2024-01-06 15:23 | disposition home or self-care (01) ==
LOC: M ED 12:49 → EDBD 12:49 → M ED 15:23
DX: S32.591S Other specified fracture of right pubis, sequela (principal); W19.XXXS Unspecified fall, sequela; Y92.129 Unspecified place in nursing home as the place of occurrence of the external cause; F03.90 Unspecified dementia, unspecified severity, without behavioral disturbance, psychotic disturbance, mood disturbance, and anxiety; Y93.9 Activity, unspecified; Y99.9 Unspecified external cause status; Z88.2 Allergy status to sulfonamides; Z88.8 Allergy status to other drugs, medicaments and biological substances; Z79.1 Long term (current) use of non-steroidal anti-inflammatories (NSAID); Z79.01 Long term (current) use of anticoagulants; Z79.899 Other long term (current) drug therapy; M25.552 Pain in left hip

== ENCOUNTER → 2024-01-06 | Outpatient (CLI) | payer MEDICARE, OTHER ==
[~2024-01-06] MED LIST changes: +APAP325T4 PO; +BISA10SU27 PR; +BUPR15TASR PO; +BUPR1TAB52 PO; +DILT180C73 PO; +ERGO500029 PO; +FLEEENE12 PR; +MEMA10TA PO; +MILKSUS3 PO; +POTA-298 PO; +QUET1TAB17 PO; +SERT25TA21 PO
== END ==
LOC: M RAD 09:15
PROVIDERS: ATTEND Physician Assistant
DX: M16.11 Unilateral primary osteoarthritis, right hip (principal); Z87.81 Personal history of (healed) traumatic fracture; M25.552 Pain in left hip; W19.XXXA Unspecified fall, initial encounter; Y92.129 Unspecified place in nursing home as the place of occurrence of the external cause; Y93.9 Activity, unspecified; Y99.9 Unspecified external cause status

== ENCOUNTER 2024-01-18 20:51 | Inpatient (IN) | payer MEDICARE, OTHER ==
[~2024-01-18] VITALS: Ht 160 cm; Wt 60.2 kg
[~2024-01-18 20:51] MED LIST changes: -MIRT1TAB PO
[2024-01-18] MEDS: MORPHINE 4 MG/ML 1ML VIAL IV ONE (21:50)
[2024-01-18] MEDS: ONDANSETRON 4MG 2ML VIAL IV ONE (21:50)
[2024-01-18 22:31] LABS: BASO # 0.1 10^3/uL (0.0-0.2); BASO % 0.3 % (0.0-1.0); EOS % 0.1 % (0.0-3.0); HEMATOCRIT 35.1 % (36.0-47.0); HEMOGLOBIN 11.5 g/dl (12.0-15.5); LYMPH # 0.6 10^3/uL (1.5-5.0); LYMPH % 3.6 % (24.0-44.0); MEAN CORPUSCULAR HEMOGLOBIN 30.9 pg (27.0-33.0); MEAN CORPUSCULAR HGB CONC 32.8 g/dl (32.0-36.5); MEAN CORPUSCULAR VOLUME 94.4 fl (80.0-96.0); MONO # 1.1 10^3/uL (0.0-0.8); MONO % 6.7 % (2.0-8.0); NEUTROPHILS # 14.9 10^3/uL (1.5-8.5); NEUTROPHILS % 88.6 % (36.0-66.0); PLATELET COUNT, AUTOMATED 222 10^3/uL (150-450); RED BLOOD COUNT 3.72 10^6/uL (4.00-5.40); WHITE BLOOD COUNT 16.8 10^3/uL (4.0-10.0)
[2024-01-18 22:58] LABS: CREATININE FOR GFR 1.11 MG/DL (0.55-1.30); GLOMERULAR FILTRATION RATE 49.4 (>32); POTASSIUM SERUM 4.9 MMOL/L (3.5-5.1)
[2024-01-19] MEDS ORDERED: NALOXONE INJ 0.4MG/1ML VIAL IV PRN (00:15)
[2024-01-19] MEDS: LR 1,000 ML IV SCH (00:15)
[2024-01-19] MEDS ORDERED: MAALOX 30 ML SUSP *UDC PO PRN (00:15)
[2024-01-19] MEDS: METHOCARBAMOL 1,000 MG/10 ML VIAL IV ONE (00:31)
[2024-01-19 00:35] LABS: VENOUS BASE EXCESS -2.7 (-2.0-2.0); VENOUS HCO3 23.7 MMOL/L (23.0-27.0); VENOUS O2 SATURATION 75.2 % (60.0-80.0); VENOUS PARTIAL PRESSURE CO2 47.1 mmHg (38.0-50.0); VENOUS PARTIAL PRESSURE O2 42.4 mmHg (30.0-50.0); VENOUS PH 7.319 UNITS (7.330-7.430); VENOUS STANDARD HCO3 21.8 MMOL/L; VENOUS TOTAL CO2 25.1 MMOL/L (24.0-28.0)
[2024-01-19] MEDS: ACETAMINOPHEN *IV* 1,000 MG in IV 1 EA IV ONE (01:01)
[2024-01-19 01:10] LABS: INR 1.19; PROTHROMBIN TIME 15.4 SECONDS (12.5-14.5)
[2024-01-19 01:17] LABS: ALBUMIN 3.2 G/DL (3.2-5.2); BILIRUBIN,DIRECT 0.8 MG/DL (<0.4); BILIRUBIN,TOTAL 1.2 MG/DL (0.3-1.2); MAGNESIUM LEVEL 1.8 MG/DL (1.8-2.4); TOTAL PROTEIN 6.6 G/DL (5.7-8.2)
[2024-01-19 01:40] VITALS: BP 142/92; TEMP 97.7; O2SAT 94
[2024-01-19] MEDS: MORPHINE 2 MG/ML 1ML VIAL IV PRN ×2 (02:04→13:23)
[2024-01-19] MEDS: cefTRIAXone SOD 1 GM in DEXTROSE 5% (D5W) ADV/MINI-BAG 50 ML IV SCH (04:45)
[2024-01-19 05:02] VITALS: BP 137/92; TEMP 97.7; O2SAT 94
[2024-01-19 08:00] VITALS: BP 137/93; TEMP 97.9; O2SAT 92
[2024-01-19] MEDS ORDERED: METHOCARBAMOL 1,000 MG/10 ML VIAL IV PRN (08:00)
[2024-01-19] MEDS ORDERED: MIRT1TAB PO (08:56)
[2024-01-19] MEDS ORDERED: HOME MED LIST COMPLETE! XX SCH (09:00)
[2024-01-19] MEDS: DOCUSATE SODIUM 100MG CAPSULE PO SCH (09:00)
[2024-01-19] MEDS ORDERED: ISOVUE-370 76% 100ML VIAL As Ordered ONE (09:56)
[2024-01-19] MEDS: dilTIAZem **CD** 180MG CAP PO SCH (11:00)
[2024-01-19 12:00] VITALS: BP 137/92; TEMP 97.7; O2SAT 95
[2024-01-19 16:00] VITALS: BP 132/78; TEMP 97.9; O2SAT 94
[2024-01-19 19:58] VITALS: BP 130/87; TEMP 97.5; O2SAT 95
[2024-01-19] MEDS: QUEtiapine FUMARATE 25 MG TAB PO SCH (20:27)
[2024-01-20 00:02] VITALS: BP 139/90; TEMP 97.7; O2SAT 96
[2024-01-20 03:39] VITALS: BP 134/89; TEMP 98.1; O2SAT 91
[2024-01-20 06:24] LABS: HEMATOCRIT 33.6 % (36.0-47.0); MEAN CORPUSCULAR HEMOGLOBIN 31.1 pg (27.0-33.0); MEAN CORPUSCULAR HGB CONC 32.7 g/dl (32.0-36.5); MEAN CORPUSCULAR VOLUME 94.9 fl (80.0-96.0); PLATELET COUNT, AUTOMATED 180 10^3/uL (150-450); RED BLOOD COUNT 3.54 10^6/uL (4.00-5.40); WHITE BLOOD COUNT 10.9 10^3/uL (4.0-10.0)
[2024-01-20 06:57] LABS: ALBUMIN 2.5 G/DL (3.2-5.2); BILIRUBIN,TOTAL 0.6 MG/DL (0.3-1.2); CREATININE FOR GFR 0.99 MG/DL (0.55-1.30); GLOMERULAR FILTRATION RATE 56.4 (>32); MAGNESIUM LEVEL 1.7 MG/DL (1.8-2.4); POTASSIUM SERUM 3.8 MMOL/L (3.5-5.1); TOTAL PROTEIN 5.8 G/DL (5.7-8.2)
[2024-01-20 07:59] VITALS: BP 129/86; TEMP 97.9; O2SAT 94
[2024-01-20] MEDS: SERTRALINE HCL 25 MG TABLET PO SCH (08:51)
[2024-01-20] MEDS ORDERED: fentaNYL 100 MCG/2 ML INJECTION As Ordered ONE (11:08)
[2024-01-20] MEDS ORDERED: ONDANSETRON 4MG 2ML VIAL As Ordered ONE (11:08)
[2024-01-20] MEDS ORDERED: propofoL 200 MG/20 ML VIAL As Ordered ONE (11:09)
[2024-01-20] MEDS ORDERED: ROCURONIUM BROMIDE 50MG/5ML VIAL As Ordered ONE (11:09)
[2024-01-20] MEDS ORDERED: LIDOCAINE 2% 100MG/5ML SDV (FOR ANES.) As Ordered ONE (11:09)
[2024-01-20] MEDS ORDERED: SUGAMMADEX SODIUM 500 MG/5 ML VIAL (BRIDION) As Ordered ONE (11:09)
[2024-01-20 11:42] VITALS: BP 136/88; TEMP 97.9; O2SAT 93
[2024-01-20 15:00] VITALS: BP 132/87; TEMP 97.5; O2SAT 92
[2024-01-20] MEDS: MORPHINE 4 MG/ML 1ML VIAL IV PRN (15:22)
[2024-01-20 20:00] VITALS: BP 132/89; TEMP 98.1; O2SAT 92
[2024-01-21] VITALS (8 sets, daily range): BP systolic 99–132; BP diastolic 67–94; TEMP 97.5–98.2; O2SAT 85–95
[2024-01-21] MEDS ORDERED: IPRATROPIUM 0.5MG/ALBUTEROL 2.5MG INH SOL UD 3ML (DUONEB) NEB PRN (04:05)
[2024-01-21] MEDS ORDERED: LEVALBUTEROL 1.25MG 0.5ML CONCENTRATE NEB INH PRN (04:05)
[2024-01-21] MEDS: ACETAMINOPHEN *IV* 1,000 MG in IV 1 EA IV ONE (04:21)
[2024-01-21 04:28] LABS: VENOUS BASE EXCESS -0.6 (-2.0-2.0); VENOUS HCO3 24.5 MMOL/L (23.0-27.0); VENOUS O2 SATURATION 86.4 % (60.0-80.0); VENOUS PARTIAL PRESSURE CO2 41.8 mmHg (38.0-50.0); VENOUS PH 7.385 UNITS (7.330-7.430); VENOUS STANDARD HCO3 23.7 MMOL/L; VENOUS TOTAL CO2 25.7 MMOL/L (24.0-28.0)
[2024-01-21] MEDS: METHOCARBAMOL 1,000 MG/10 ML VIAL IV ONE (04:29)
[2024-01-21 04:32] LABS: BASO % 0.3 % (0.0-1.0); EOS % 0.1 % (0.0-3.0); HEMATOCRIT 35.6 % (36.0-47.0); HEMOGLOBIN 11.7 g/dl (12.0-15.5); LYMPH # 1.8 10^3/uL (1.5-5.0); LYMPH % 12.1 % (24.0-44.0); MEAN CORPUSCULAR HEMOGLOBIN 31.5 pg (27.0-33.0); MEAN CORPUSCULAR HGB CONC 32.9 g/dl (32.0-36.5); MONO # 1.9 10^3/uL (0.0-0.8); MONO % 12.3 % (2.0-8.0); NEUTROPHILS # 11.3 10^3/uL (1.5-8.5); NEUTROPHILS % 74.8 % (36.0-66.0); PLATELET COUNT, AUTOMATED 199 10^3/uL (150-450); RED BLOOD COUNT 3.71 10^6/uL (4.00-5.40); WHITE BLOOD COUNT 15.1 10^3/uL (4.0-10.0)
[2024-01-21 04:46] LABS: D-DIMER QUANT 3.21 ug/mL (<0.5); INR 1.11; PARTIAL THROMBOPLASTIN TIME 50.5 SECONDS (24.8-34.2); PROTHROMBIN TIME 14.7 SECONDS (12.5-14.5)
[2024-01-21 04:57] LABS: ALBUMIN 2.5 G/DL (3.2-5.2); ALKALINE PHOSPHATASE 167 U/L (35-104); ALT/SGPT 120 U/L (7.0-40); AST/SGOT 62 U/L (<34); BILIRUBIN,TOTAL 0.9 MG/DL (0.3-1.2); BLOOD UREA NITROGEN 30 MG/DL (9-23); CARBON DIOXIDE LEVEL 26 MMOL/L (20-31); CHLORIDE LEVEL 111 MMOL/L (98-107); CREATININE FOR GFR 0.87 MG/DL (0.55-1.30); GLOMERULAR FILTRATION RATE > 60.0 (>32); GLUCOSE, FASTING 121 MG/DL (74-106); MAGNESIUM LEVEL 1.6 MG/DL (1.8-2.4); POTASSIUM SERUM 3.7 MMOL/L (3.5-5.1); SODIUM LEVEL 145 MMOL/L (136-145); TOTAL PROTEIN 5.9 G/DL (5.7-8.2)
[2024-01-21 05:09] LABS: PROCALCITONIN 0.57 ng/ml
[2024-01-21] MEDS: MAG SULF 1GM/100ML (MAG RUN) 1 GM in IV 1 EA IV SCH (12:27)
[2024-01-22] VITALS (9 sets, daily range): BP systolic 102–131; BP diastolic 68–89; TEMP 97.2–97.9; O2SAT 92–96
[2024-01-22] MEDS: METHOCARBAMOL 1,000 MG/10 ML VIAL IV ONE ×2 (03:55→23:26)
[2024-01-22 11:10] LABS: HEMATOCRIT 32.3 % (36.0-47.0); HEMOGLOBIN 10.6 g/dl (12.0-15.5); MEAN CORPUSCULAR HEMOGLOBIN 31.3 pg (27.0-33.0); MEAN CORPUSCULAR HGB CONC 32.8 g/dl (32.0-36.5); MEAN CORPUSCULAR VOLUME 95.3 fl (80.0-96.0); PLATELET COUNT, AUTOMATED 182 10^3/uL (150-450); RED BLOOD COUNT 3.39 10^6/uL (4.00-5.40); WHITE BLOOD COUNT 11.4 10^3/uL (4.0-10.0)
[2024-01-22 11:26] LABS: BLOOD UREA NITROGEN 27 MG/DL (9-23); CALCIUM LEVEL 8.6 MG/DL (8.3-10.6); CARBON DIOXIDE LEVEL 26 MMOL/L (20-31); CHLORIDE LEVEL 112 MMOL/L (98-107); CREATININE FOR GFR 0.82 MG/DL (0.55-1.30); GLOMERULAR FILTRATION RATE > 60.0 (>32); GLUCOSE, FASTING 121 MG/DL (74-106); POTASSIUM SERUM 3.5 MMOL/L (3.5-5.1); SODIUM LEVEL 145 MMOL/L (136-145)
[2024-01-22] MEDS: LR 1,000 ML IV ONE (11:52)
[2024-01-22] MEDS: LIDOCAINE 5% (LIDODERM) PATCH TD SCH (12:53)
[2024-01-22] MEDS: methocarbamoL 500 MG TAB PO PRN (12:53)
[2024-01-22] MEDS: ACETAMINOPHEN *IV* 1,000 MG in IV 1 EA IV ONE (22:45)
[2024-01-22] MEDS: MEMANTINE 5MG TABLET (NAMENDA) PO SCH (22:49)
[2024-01-23] VITALS (7 sets, daily range): BP systolic 123–137; BP diastolic 75–82; TEMP 97.5–97.7; O2SAT 90–98
[2024-01-23] MEDS: LORazepam 2 MG/ML 1ML VIAL IV PRN (13:34)
[2024-01-24] VITALS (17 sets, daily range): BP systolic 90–134; BP diastolic 58–83; TEMP 97.2–98.2; O2SAT 90–97
[2024-01-24 09:12] LABS: HEMATOCRIT 32.2 % (36.0-47.0); HEMOGLOBIN 10.6 g/dl (12.0-15.5); MEAN CORPUSCULAR HGB CONC 32.9 g/dl (32.0-36.5); MEAN CORPUSCULAR VOLUME 94.2 fl (80.0-96.0); PLATELET COUNT, AUTOMATED 226 10^3/uL (150-450); RED BLOOD COUNT 3.42 10^6/uL (4.00-5.40); WHITE BLOOD COUNT 10.7 10^3/uL (4.0-10.0)
[2024-01-24 09:26] LABS: PROTHROMBIN TIME 13.5 SECONDS (12.5-14.5)
[2024-01-24 09:36] LABS: BLOOD UREA NITROGEN 16 MG/DL (9-23); CALCIUM LEVEL 7.9 MG/DL (8.3-10.6); CARBON DIOXIDE LEVEL 25 MMOL/L (20-31); CHLORIDE LEVEL 112 MMOL/L (98-107); CREATININE FOR GFR 0.59 MG/DL (0.55-1.30); GLOMERULAR FILTRATION RATE > 60.0 (>32); GLUCOSE, FASTING 89 MG/DL (74-106); POTASSIUM SERUM 3.5 MMOL/L (3.5-5.1); SODIUM LEVEL 147 MMOL/L (136-145)
[2024-01-24] MEDS ORDERED: ACETAMINOPHEN 1000MG/100ML IV BAG As Ordered ONE (11:15)
[2024-01-24] MEDS ORDERED: KETAMINE HCL 200MG/20ML VIAL As Ordered ONE (11:15)
[2024-01-24] MEDS ORDERED: dexmedeTOMIDine (4MCG/ML)200MCG/50ML BTL (PRECEDEX) As Ordered ONE (11:15)
[2024-01-24] MEDS ORDERED: PHENYLephrine 500MCG 5ML (100MCG/ML) SYRINGE As Ordered ONE (11:22)
[2024-01-24] MEDS ORDERED: ePHEDrine SULFATE 25 MG/5 ML(5MG/ML) SYRINGE As Ordered ONE (11:22)
[2024-01-24] MEDS: ceFAZolin 2 GM/D5W 50 ML IV BAG As Ordered ONE (12:30)
[2024-01-24] MEDS: TRANEXAMIC ACID 100 MG/ML 10ML VIAL As Ordered ONE (12:45)
[2024-01-24] MEDS ORDERED: fentaNYL 100 MCG/2 ML INJECTION IV PRN (14:15)
[2024-01-24] MEDS ORDERED: oxyCODONE 5MG TAB PO PRN (14:15)
[2024-01-24] MEDS ORDERED: HYDROMORPHONE HCL 0.5 MG/ 0.5 ML SYRINGE IV PRN (14:15)
[2024-01-24] MEDS ORDERED: ONDANSETRON 4MG 2ML VIAL IV PRN (14:15)
[2024-01-24] MEDS: LACTATED RINGER'S 1000 ML IV STA (14:50)
[2024-01-24] MEDS: ceFAZolin SOD 2 GM in IV 1 EA IV SCH (20:31)
[2024-01-24] MEDS: ACETAMINOPHEN 325 MG TAB PO PRN (20:33)
[2024-01-24] MEDS: MOM 30ML SUSPENSION UDC PO PRN (22:51)
[2024-01-24] MEDS: MORPHINE 2 MG/ML 1ML VIAL IV ONE (22:52)
[2024-01-25] VITALS (7 sets, daily range): BP systolic 92–130; BP diastolic 52–74; TEMP 97–98.5; O2SAT 90–94
[2024-01-25] MEDS: ACETAMINOPHEN *IV* 1,000 MG in IV 1 EA IV ONE (00:30)
[2024-01-25] MEDS: D5W 1,000 ML IV SCH (03:15)
[2024-01-25 06:22] LABS: HEMATOCRIT 29.2 % (36.0-47.0); HEMOGLOBIN 9.8 g/dl (12.0-15.5); MEAN CORPUSCULAR HEMOGLOBIN 31.4 pg (27.0-33.0); MEAN CORPUSCULAR HGB CONC 33.6 g/dl (32.0-36.5); MEAN CORPUSCULAR VOLUME 93.6 fl (80.0-96.0); PLATELET COUNT, AUTOMATED 213 10^3/uL (150-450); RED BLOOD COUNT 3.12 10^6/uL (4.00-5.40); WHITE BLOOD COUNT 12.2 10^3/uL (4.0-10.0)
[2024-01-25 06:50] LABS: BLOOD UREA NITROGEN 21 MG/DL (9-23); CALCIUM LEVEL 7.6 MG/DL (8.3-10.6); CARBON DIOXIDE LEVEL 26 MMOL/L (20-31); CHLORIDE LEVEL 109 MMOL/L (98-107); GLOMERULAR FILTRATION RATE > 60.0 (>32); GLUCOSE, FASTING 164 MG/DL (74-106); POTASSIUM SERUM 3.5 MMOL/L (3.5-5.1); SODIUM LEVEL 145 MMOL/L (136-145)
[2024-01-25] MEDS: ACETAMINOPHEN *IV* 1,000 MG in IV 1 EA IV SCH (13:07)
[2024-01-25] MEDS: KETOROLAC 30 MG/ML 1ML VIAL IV PRN (23:25)
[2024-01-26] VITALS (7 sets, daily range): BP systolic 109–133; BP diastolic 66–74; TEMP 98.5–99; O2SAT 92–96
[2024-01-26 08:14] LABS: HEMOGLOBIN 9.7 g/dl (12.0-15.5); MEAN CORPUSCULAR HEMOGLOBIN 30.7 pg (27.0-33.0); MEAN CORPUSCULAR HGB CONC 33.4 g/dl (32.0-36.5); MEAN CORPUSCULAR VOLUME 91.8 fl (80.0-96.0); PLATELET COUNT, AUTOMATED 236 10^3/uL (150-450); RED BLOOD COUNT 3.16 10^6/uL (4.00-5.40); WHITE BLOOD COUNT 13.7 10^3/uL (4.0-10.0)
[2024-01-26 08:48] LABS: BLOOD UREA NITROGEN 25 MG/DL (9-23); CALCIUM LEVEL 8.1 MG/DL (8.3-10.6); CARBON DIOXIDE LEVEL 28 MMOL/L (20-31); CHLORIDE LEVEL 108 MMOL/L (98-107); CREATININE FOR GFR 0.89 MG/DL (0.55-1.30); GLOMERULAR FILTRATION RATE > 60.0 (>32); GLUCOSE, FASTING 117 MG/DL (74-106); POTASSIUM SERUM 3.1 MMOL/L (3.5-5.1); SODIUM LEVEL 144 MMOL/L (136-145)
[2024-01-26 14:02] LABS: MAGNESIUM LEVEL 1.6 MG/DL (1.8-2.4)
[2024-01-26] MEDS: POTASSIUM CHLORIDE 10MEQ SR TABLET PO SCH (14:25)
[2024-01-26] MEDS: FUROSEMIDE 20 MG TAB PO SCH (15:39)
[2024-01-26] MEDS: MIRALAX *UNIT DOSE* 17GM PACKET PO SCH (16:42)
[2024-01-26] MEDS: SENNA 8.6 MG TAB (SENOKOT) PO SCH (16:43)
[2024-01-26] MEDS: BISACODYL 10MG SUPP PR SCH (17:20)
[2024-01-27] VITALS (7 sets, daily range): BP systolic 110–136; BP diastolic 60–78; TEMP 98.1–98.7; O2SAT 86–96
[2024-01-27 05:47] LABS: HEMATOCRIT 28.9 % (36.0-47.0); HEMOGLOBIN 9.5 g/dl (12.0-15.5); MEAN CORPUSCULAR HEMOGLOBIN 30.5 pg (27.0-33.0); MEAN CORPUSCULAR HGB CONC 32.9 g/dl (32.0-36.5); MEAN CORPUSCULAR VOLUME 92.9 fl (80.0-96.0); PLATELET COUNT, AUTOMATED 247 10^3/uL (150-450); RED BLOOD COUNT 3.11 10^6/uL (4.00-5.40); WHITE BLOOD COUNT 12.5 10^3/uL (4.0-10.0)
[2024-01-27 06:43] LABS: BLOOD UREA NITROGEN 24 MG/DL (9-23); CALCIUM LEVEL 8.1 MG/DL (8.3-10.6); CARBON DIOXIDE LEVEL 30 MMOL/L (20-31); CHLORIDE LEVEL 110 MMOL/L (98-107); CREATININE FOR GFR 0.72 MG/DL (0.55-1.30); GLOMERULAR FILTRATION RATE > 60.0 (>32); GLUCOSE, FASTING 102 MG/DL (74-106); POTASSIUM SERUM 4.1 MMOL/L (3.5-5.1); SODIUM LEVEL 145 MMOL/L (136-145)
[2024-01-27] MEDS: FUROSEMIDE 40MG/4ML VIAL IV SCH (09:44)
[2024-01-27] MEDS: ONDANSETRON 4MG ORAL DISINTEGRATING TAB PO PRN (18:31)
[2024-01-27] MEDS: APIXABAN 2.5 MG TAB (ELIQUIS) PO SCH (21:43)
[2024-01-28] VITALS (13 sets, daily range): BP systolic 111–136; BP diastolic 60–73; TEMP 97.1–99.6; O2SAT 83–95
[2024-01-28 06:49] LABS: HEMATOCRIT 28.6 % (36.0-47.0); HEMOGLOBIN 9.1 g/dl (12.0-15.5); MEAN CORPUSCULAR HEMOGLOBIN 30.5 pg (27.0-33.0); MEAN CORPUSCULAR HGB CONC 31.8 g/dl (32.0-36.5); PLATELET COUNT, AUTOMATED 284 10^3/uL (150-450); RED BLOOD COUNT 2.98 10^6/uL (4.00-5.40); WHITE BLOOD COUNT 12.4 10^3/uL (4.0-10.0)
[2024-01-28 07:13] LABS: BLOOD UREA NITROGEN 22 MG/DL (9-23); CARBON DIOXIDE LEVEL 33 MMOL/L (20-31); CHLORIDE LEVEL 108 MMOL/L (98-107); GLOMERULAR FILTRATION RATE > 60.0 (>32); GLUCOSE, FASTING 106 MG/DL (74-106); POTASSIUM SERUM 3.7 MMOL/L (3.5-5.1); SODIUM LEVEL 145 MMOL/L (136-145)
[2024-01-28] MEDS: THIAMINE 100 MG TAB PO SCH (16:18)
[2024-01-28] MEDS: BISACODYL 10MG SUPP PR ONE (16:18)
[2024-01-28] MEDS: ACETAMINOPHEN 325 MG TAB PO PRN (20:57)
[2024-01-29] VITALS (18 sets, daily range): BP systolic 116–155; BP diastolic 63–85; TEMP 97–99.3; O2SAT 87–97
[2024-01-29 05:56] LABS: HEMATOCRIT 29.7 % (36.0-47.0); HEMOGLOBIN 9.4 g/dl (12.0-15.5); MEAN CORPUSCULAR HEMOGLOBIN 30.1 pg (27.0-33.0); MEAN CORPUSCULAR HGB CONC 31.6 g/dl (32.0-36.5); MEAN CORPUSCULAR VOLUME 95.2 fl (80.0-96.0); PLATELET COUNT, AUTOMATED 340 10^3/uL (150-450); RED BLOOD COUNT 3.12 10^6/uL (4.00-5.40); WHITE BLOOD COUNT 11.9 10^3/uL (4.0-10.0)
[2024-01-29 06:21] LABS: BLOOD UREA NITROGEN 21 MG/DL (9-23); CARBON DIOXIDE LEVEL 35 MMOL/L (20-31); CHLORIDE LEVEL 106 MMOL/L (98-107); CREATININE FOR GFR 0.74 MG/DL (0.55-1.30); GLOMERULAR FILTRATION RATE > 60.0 (>32); GLUCOSE, FASTING 110 MG/DL (74-106); POTASSIUM SERUM 3.6 MMOL/L (3.5-5.1); SODIUM LEVEL 145 MMOL/L (136-145)
[2024-01-29] MEDS: RAMELTEON 8 MG TAB (ROZEREM) PO PRN (21:56)
[2024-01-29] MEDS: diphenhydrAMINE 50MG/ML VIAL IV ONE (23:35)
[2024-01-30] VITALS (7 sets, daily range): BP systolic 132–160; BP diastolic 78–96; TEMP 96.8–97.5; O2SAT 91–98
[2024-01-30] MEDS ORDERED: PILL CUTTER 1 EACH XX PRN (00:35)
[2024-01-30] MEDS: traMADol 50 MG TAB PO ONE (00:38)
[2024-01-30] MEDS: QUEtiapine FUMARATE 25 MG TAB PO ONE (00:49)
[2024-01-30 06:45] LABS: HEMATOCRIT 26.6 % (36.0-47.0); HEMOGLOBIN 8.7 g/dl (12.0-15.5); MEAN CORPUSCULAR HEMOGLOBIN 30.4 pg (27.0-33.0); MEAN CORPUSCULAR HGB CONC 32.7 g/dl (32.0-36.5); PLATELET COUNT, AUTOMATED 356 10^3/uL (150-450); RED BLOOD COUNT 2.86 10^6/uL (4.00-5.40); WHITE BLOOD COUNT 13.1 10^3/uL (4.0-10.0)
[2024-01-30 07:17] LABS: BLOOD UREA NITROGEN 21 MG/DL (9-23); CALCIUM LEVEL 7.8 MG/DL (8.3-10.6); CARBON DIOXIDE LEVEL 33 MMOL/L (20-31); CHLORIDE LEVEL 106 MMOL/L (98-107); GLOMERULAR FILTRATION RATE > 60.0 (>32); GLUCOSE, FASTING 123 MG/DL (74-106); POTASSIUM SERUM 3.7 MMOL/L (3.5-5.1); SODIUM LEVEL 146 MMOL/L (136-145)
[2024-01-30] MEDS ORDERED: ENTER DRUG NAME HERE (PATIENT'S OWN MED) EXT PRN (20:10)
[2024-01-31 04:01] VITALS: TEMP 98.1; O2SAT 96
[2024-01-31 06:43] LABS: HEMATOCRIT 27.6 % (36.0-47.0); MEAN CORPUSCULAR HEMOGLOBIN 30.7 pg (27.0-33.0); MEAN CORPUSCULAR HGB CONC 32.6 g/dl (32.0-36.5); MEAN CORPUSCULAR VOLUME 94.2 fl (80.0-96.0); PLATELET COUNT, AUTOMATED 416 10^3/uL (150-450); RED BLOOD COUNT 2.93 10^6/uL (4.00-5.40); WHITE BLOOD COUNT 12.6 10^3/uL (4.0-10.0)
[2024-01-31 07:06] LABS: BLOOD UREA NITROGEN 18 MG/DL (9-23); CALCIUM LEVEL 8.2 MG/DL (8.3-10.6); CARBON DIOXIDE LEVEL 34 MMOL/L (20-31); CHLORIDE LEVEL 105 MMOL/L (98-107); CREATININE FOR GFR 0.77 MG/DL (0.55-1.30); GLOMERULAR FILTRATION RATE > 60.0 (>32); GLUCOSE, FASTING 111 MG/DL (74-106); POTASSIUM SERUM 3.4 MMOL/L (3.5-5.1); SODIUM LEVEL 146 MMOL/L (136-145)
[2024-01-31 08:08] VITALS: TEMP 97.5; O2SAT 96
[2024-01-31 09:00] VITALS: BP 90/58
[2024-01-31] MEDS: UNRESOLVED PATIENT OWN MED ORDER XX SCH (09:00)
[2024-01-31] MEDS ORDERED: ATROPINE SULFATE 1% OPHTH SOLN 2ML BTL SL PRN (09:45)
[2024-01-31] MEDS ORDERED: HYOSCYAMINE SULFATE 0.125 MG SUBL TABLET PO PRN (09:45)
[2024-01-31] MEDS: POTASSIUM CHLORIDE 10MEQ SR TABLET PO ONE (10:07)
[2024-01-31] MEDS: MORPHINE 10MG/0.5ML ORAL CONCENTRATE SOLUTION U/D SL SCH (10:07)
[2024-01-31 12:00] VITALS: BP 101/68; O2SAT 92
[2024-01-31] MEDS: ACETAMINOPHEN 325 MG TAB PO PRN (13:27)
[2024-01-31] MEDS ORDERED: QUEtiapine FUMARATE 25 MG TAB PO SCH (16:00)
[2024-01-31] MEDS: LORazepam 1 MG TAB PO PRN (16:25)
[2024-02-01] MEDS: MORPHINE 10MG/0.5ML ORAL CONCENTRATE SOLUTION U/D SL PRN (00:39)
[2024-02-01] MEDS: MORPHINE 10MG/0.5ML ORAL CONCENTRATE SOLUTION U/D SL SCH (09:09)
[2024-02-01] MEDS ORDERED: SALIVA SUBSTITUTE(MOUTHKOTE) BTL MT PRN (11:50)
[2024-02-01] MEDS: LORazepam 1 MG TAB PO SCH (12:37)
[2024-02-02] MEDS ORDERED: MORPHINE 10MG/0.5ML ORAL CONCENTRATE SOLUTION U/D SL PRN (08:55)
[2024-02-02] MEDS ORDERED: LORazepam 2 MG TAB PO PRN (08:55)
[2024-02-02] MEDS ORDERED: BISA10SU PR (09:24)
[2024-02-02] MEDS ORDERED: ATIV1TAB10 PO (09:24)
[2024-02-02] MEDS ORDERED: MOUKOT60 MT (09:24)
[2024-02-02] MEDS ORDERED: ACET32TAB PO (09:24)
[2024-02-02] MEDS ORDERED: HYOS125TA PO (09:24)
[2024-02-02] MEDS ORDERED: LIDO5TD TD (09:24)
[2024-02-02] MEDS ORDERED: HALO1TAB19 PO (09:24)
[2024-02-02] MEDS ORDERED: MORP1SOL5 PO (09:24)
[2024-02-02] MEDS ORDERED: ONDA-282 PO (09:24)
[2024-02-02] MEDS ORDERED: MOM30SS2 PO (09:27)
[2024-02-02] MEDS: LORazepam 2 MG TAB PO SCH (09:39)
[2024-02-02] MEDS: MORPHINE 10MG/0.5ML ORAL CONCENTRATE SOLUTION U/D SL SCH (09:39)
== END 2024-02-02 10:40 | disposition hospice, inpatient (51) | DRG 521 ==
LOC: EDBD 20:51 → M ED 20:51 → M ED INP 23:52 → M MSPAV 01-19 01:30 → M PCU 01-24 15:51 → M MS5PR 01-29 17:33
PROVIDERS: ADMIT Family Medicine; ATTEND Internal Medicine Nephrology
PROC: B246ZZZ Ultrasonography of Right and Left Heart (ICD-10-PCS; 2024-01-21)
PROC: 0SRB0J9 Replacement of Left Hip Joint with Synthetic Substitute, Cemented, Open Approach (ICD-10-PCS; principal; 2024-01-24 11:00)
DX: S72.012A Unspecified intracapsular fracture of left femur, initial encounter for closed fracture (principal); G93.41 Metabolic encephalopathy; I50.33 Acute on chronic diastolic (congestive) heart failure; J96.01 Acute respiratory failure with hypoxia; N39.0 Urinary tract infection, site not specified; J98.11 Atelectasis; F02.811 Dementia in other diseases classified elsewhere, unspecified severity, with agitation; E87.0 Hyperosmolality and hypernatremia; E44.0 Moderate protein-calorie malnutrition; I48.91 Unspecified atrial fibrillation; I45.19 Other right bundle-branch block; I11.0 Hypertensive heart disease with heart failure; E78.5 Hyperlipidemia, unspecified; W18.30XA Fall on same level, unspecified, initial encounter; Z51.5 Encounter for palliative care; Z66 Do not resuscitate; M85.80 Other specified disorders of bone density and structure, unspecified site; K57.90 Diverticulosis of intestine, part unspecified, without perforation or abscess without bleeding; G31.83 Neurocognitive disorder with Lewy bodies; I27.20 Pulmonary hypertension, unspecified; R45.1 Restlessness and agitation; E11.9 Type 2 diabetes mellitus without complications; Z99.81 Dependence on supplemental oxygen; R26.81 Unsteadiness on feet; R54 Age-related physical debility; E88.09 Other disorders of plasma-protein metabolism, not elsewhere classified; R62.7 Adult failure to thrive; F32.A Depression, unspecified; K59.00 Constipation, unspecified; Q03.0 Malformations of aqueduct of Sylvius; R29.6 Repeated falls; D64.9 Anemia, unspecified; Z90.49 Acquired absence of other specified parts of digestive tract; Z98.2 Presence of cerebrospinal fluid drainage device; B96.20 Unspecified Escherichia coli [E. coli] as the cause of diseases classified elsewhere; Z79.01 Long term (current) use of anticoagulants; Z79.899 Other long term (current) drug therapy; Z88.2 Allergy status to sulfonamides; Z88.6 Allergy status to analgesic agent; Z88.8 Allergy status to other drugs, medicaments and biological substances; Y93.89 Activity, other specified; Y99.8 Other external cause status; Y92.129 Unspecified place in nursing home as the place of occurrence of the external cause

== ENCOUNTER → 2024-01-18 | Outpatient (REF) | payer MEDICARE, OTHER ==
[~2024-01-18] MED LIST changes: +APAP325T4 PO; +BISA10SU27 PR; +BUPR15TASR PO; +BUPR1TAB52 PO; +DILT180C73 PO; +ERGO500029 PO; +FLEEENE12 PR; +MEMA10TA PO; +MILKSUS3 PO; +MIRT1TAB PO; +POTA-298 PO; +QUET1TAB17 PO; +SERT25TA21 PO
[2024-01-18 10:00] LABS: HEMATOCRIT 38.1 % (36.0-47.0); HEMOGLOBIN 12.4 g/dl (12.0-15.5); MEAN CORPUSCULAR HEMOGLOBIN 30.8 pg (27.0-33.0); MEAN CORPUSCULAR HGB CONC 32.5 g/dl (32.0-36.5); MEAN CORPUSCULAR VOLUME 94.5 fl (80.0-96.0); PLATELET COUNT, AUTOMATED 255 10^3/uL (150-450); RED BLOOD COUNT 4.03 10^6/uL (4.00-5.40); WHITE BLOOD COUNT 8.1 10^3/uL (4.0-10.0)
[2024-01-18 10:29] LABS: BLOOD UREA NITROGEN 26 MG/DL (9-23); CALCIUM LEVEL 9.6 MG/DL (8.3-10.6); CARBON DIOXIDE LEVEL 28 MMOL/L (20-31); CHLORIDE LEVEL 109 MMOL/L (98-107); CREATININE FOR GFR 0.91 MG/DL (0.55-1.30); GLOMERULAR FILTRATION RATE > 60.0 (>32); GLUCOSE, FASTING 131 MG/DL (74-106); POTASSIUM SERUM 4.1 MMOL/L (3.5-5.1); SODIUM LEVEL 144 MMOL/L (136-145)
[2024-01-18 10:32] LABS: THYROID STIMULATING HORMONE 2.501 uIU/ML (0.55-4.78); THYROXINE (T4) 6.6 UG/DL (4.5-10.9)
== END ==
PROVIDERS: ATTEND Physician Assistant
DX: R63.4 Abnormal weight loss (principal)